=== PATIENT | female | born 1930 | race Caucasian/White ===

== ENCOUNTER 2018-11-30 13:39 | Inpatient (IN) | payer MEDICARE, OTHER ==
[~2018-11-30] VITALS: Ht 165.1 cm; Wt 48.1 kg
[~2018-11-30 13:39] MED LIST: AC325T PO
--- NOTE | 2018-11-30 13:50 | NUR ---
SAO2 83% ON ADMIT PLACED ON
--- NOTE | 2018-11-30 13:52 | ED Hip Pain/Injury ---
General Chief Complaint: Hip/Pelvic Problems Stated Complaint: FALL;L HIP Source: patient Exam Limitations: no limitations History of Present Illness Date Seen by Provider: Nov 30, 2018 Time Seen by Provider: 13:50 Initial Comments To ER per EMS from home with reports of fall and subsequent left hip pain. She did not hit her head. She states that she was able stand momentarily after falling but can no longer do so. There is obvious external rotation and shortening of the left hip. She is also noted to be hypoxic at 83% on arrival. She does not typically wear oxygen at home. EMS reported oxygen saturation of 96 % in route to the hospital. She denies shortness of breath or chest pain. Timing/Duration: constant Severity: moderate Location: pelvis Allergies and Home Medications Allergies Uncoded Allergies: SULFA (Allergy, Mild, 08/03/10) Home Medications Acetaminophen 325 Mg Tablet, 325 MG PO PRN Prescribed by: JOSE SANCHEZ on 08/03/10 3798 Patient Home Medication List Home Medication List Reviewed: Yes Review of Systems Constitutional: see HPI EENTM: see HPI Respiratory: no symptoms reported Cardiovascular: no symptoms reported Genitourinary: no symptoms reported Musculoskeletal: see HPI Skin: no symptoms reported Psychiatric/Neurological: No Symptoms Reported Physical Exam Vital Signs Vital Signs - First Documented 11/30/18 13:50 Temp 98.1 Pulse 86 Resp 20 B/P (MAP) 139/79 (99) Pulse Ox 95 O2 Delivery Nasal Cannula O2 Flow Rate 2.00 Capillary Refill : Height, Weight, BMI Height: '" Weight: lbs. oz. kg; BMI Method: General Appearance: No Apparent Distress, WD/WN, Other (alert and oriented GCS 15. No sign of scalp or head injury. Normal respiratory pattern an effort. Lungs are clear.) HEENT: PERRL/EOMI, TMs Normal Neck: Full Range of Motion, Normal Inspection Cardiovascular: Normal Peripheral Pulses Respiratory: Lungs Clear, Normal Breath Sounds, No Accessory Muscle Use, No Respiratory Distress Gastrointestinal: Non Tender, Soft Extremity: Other (+1 dorsalis pedis pulse on the left. Neck pain at the left hip. There is shortening and external rotation of the left leg.) Neurologic/Psychiatric: Alert, Oriented x3 Skin: Normal Color, Warm/Dry GCS 15. Alert and oriented. Recalls all events. Progress/Results/Core Measures Results/Orders Lab Results Laboratory Tests Test 11/30/18 13:50 11/30/18 14:40 11/30/18 14:45 Range/Units White Blood Count 11.4 H 4.3-11.0 10^3/uL Red Blood Count 3.68 L 4.35-5.85 10^6/uL Hemoglobin 11.9 11.5-16.0 G/DL Hematocrit 36 35-52 % Mean Corpuscular Volume 97 80-99 FL Mean Corpuscular Hemoglobin 32 25-34 PG Mean Corpuscular Hemoglobin Concent 33 32-36 G/DL Red Cell Distribution Width 12.6 10.0-14.5 % Platelet Count 214 130-400 10^3/uL Mean Platelet Volume 10.9 H 7.4-10.4 FL Neutrophils (%) (Auto) 89 H 42-75 % Lymphocytes (%) (Auto) 6 L 12-44 % Monocytes (%) (Auto) 5 0-12 % Eosinophils (%) (Auto) 0 0-10 % Basophils (%) (Auto) 0 0-10 % Neutrophils # (Auto) 10.1 H 1.8-7.8 X 10^3 Lymphocytes # (Auto) 0.7 L 1.0-4.0 X 10^3 Monocytes # (Auto) 0.6 0.0-1.0 X 10^3 Eosinophils # (Auto) 0.0 0.0-0.3 10^3/uL Basophils # (Auto) 0.0 0.0-0.1 10^3/uL Neutrophils % (Manual) 90 % Lymphocytes % (Manual) 6 % Monocytes % (Manual) 3 % Eosinophils % (Manual) 0 % Basophils % (Manual) 0 % Band Neutrophils 1 % Toxic Granulation 1+ Blood Morphology Comment NORMAL Prothrombin Time 13.7 12.2-14.7 SEC INR Comment 1.1 0.8-1.4 Sodium Level 140 135-145 MMOL/L Potassium Level 3.6 3.6-5.0 MMOL/L Chloride Level 105 98-107 MMOL/L Carbon Dioxide Level 23 21-32 MMOL/L Anion Gap 12 5-14 MMOL/L Blood Urea Nitrogen 22 H 7-18 MG/DL Creatinine 0.87 0.60-1.30 MG/DL Estimat Glomerular Filtration Rate > 60 BUN/Creatinine Ratio 25 Glucose Level 128 H 70-105 MG/DL Calcium Level 9.2 8.5-10.1 MG/DL Corrected Calcium 9.3 8.5-10.1 MG/DL Total Bilirubin 0.4 0.1-1.0 MG/DL Aspartate Amino Transf (AST/SGOT) 29 5-34 U/L Alanine Aminotransferase (ALT/SGPT) 21 0-55 U/L Alkaline Phosphatase 61 40-136 U/L Total Protein 6.7 6.4-8.2 GM/DL Albumin 3.9 3.2-4.5 GM/DL Blood Gas Puncture Site RIGHT BRACHIAL Blood Gas Patient Temperature 98.6 Arterial Blood pH 7.37 7.37-7.43 Arterial Blood Partial Pressure CO2 43 35-45 MMHG Arterial Blood Partial Pressure O2 79 79-93 MMHG Arterial Blood HCO3 24 23-27 MMOL/L Arterial Blood Total CO2 25.6 21.0-31.0 MMOL/L Arterial Blood Oxygen Saturation 95 94-100 % Arterial Blood Base Excess -0.3 -2.5-2.5 MMOL/L Chalo Test POSITIVE Blood Gas Ventilator Setting NO Blood Gas Inspired Oxygen 3 L Urine Color YELLOW Urine Clarity SLIGHTLY CLOUDY Urine pH 7 5-9 Urine Specific [employer] 1.015 L 1.016-1.022 Urine Protein 1+ H NEGATIVE Urine Glucose (UA) NEGATIVE NEGATIVE Urine Ketones 2+ H NEGATIVE Urine Nitrite NEGATIVE NEGATIVE Urine Bilirubin NEGATIVE NEGATIVE Urine Urobilinogen NORMAL NORMAL MG/DL Urine Leukocyte Esterase NEGATIVE NEGATIVE Urine RBC (Auto) NEGATIVE NEGATIVE Urine RBC NONE /HPF Urine WBC RARE /HPF Urine Squamous Epithelial Cells 2-5 /HPF Urine Crystals NONE /LPF Urine Bacteria MODERATE H /HPF Urine Casts NONE /LPF Urine Mucus NEGATIVE /LPF Urine Culture Indicated YES My Orders Orders - CARLTON ÁLVAREZ APRN Cbc With Automated Diff (11/30/18 13:47) Comprehensive Metabolic Panel (11/30/18 13:47) Protime With Inr (11/30/18 13:47) Iv Heplock-Insert (Order) (11/30/18 13:47) Ct Angio Chest W (11/30/18 13:47) Chest 1 View, Ap/Pa Only (11/30/18 13:47) Pelvis With Left Hip 2-3 Views (11/30/18 13:47) Fentanyl Injection (Sublimaze Injection (11/30/18 14:00) Fentanyl Injection (Sublimaze Injection (11/30/18 14:00) Ua Culture If Indicated (11/30/18 14:01) Catheter(Urinary) Care .0300, 1500 (11/30/18 14:01) Manual Differential (11/30/18 13:50) Fentanyl Injection (Sublimaze Injection (11/30/18 14:45) Arterial Blood Gas (11/30/18 14:38) Arterial Blood Draw (11/30/18 ) Iohexol Injection (Omnipaque 350 Mg/Ml 1 (11/30/18 15:00) Received Contrast (Hold Metformin- Contr (11/30/18 15:00) Fentanyl Injection (Sublimaze Injection (11/30/18 15:00) Consult Pulmonology (11/30/18 14:58) Urine Culture (11/30/18 14:45) Medications Given in ED Current Medications Medications Dose Ordered Sig/Neftali Route Start Time Stop Time Status Last Admin Dose Admin Fentanyl Citrate 25 mcg ONCE PRN IVP 11/30/18 14:00 11/30/18 14:38 25 MCG Iohexol 125 ml ONCE ONCE IV 11/30/18 15:00 11/30/18 15:01 DC 11/30/18 14:56 125 ML Vital Signs/I&O 11/30/18 13:50 Temp 98.1 Pulse 86 Resp 20 B/P (MAP) 139/79 (99) Pulse Ox 95 O2 Delivery Nasal Cannula O2 Flow Rate 2.00 Diagnostic Imaging Diagonstic Imaging: CT Comments NAME: MAUREEN RODNEY [facility] REC#: [id number] PT STATUS: REG ER : 1930 PHYSICIAN: CARLTON ÁLVAREZ CERTIFIED HISTOLOGIC TECHNICIAN ADMIT DATE: 11/30/18/ER Draft Date of Exam:11/30/18 CT ANGIO CHEST W PROCEDURE: CT angiography of the chest with contrast. TECHNIQUE: Multiple contiguous axial images were obtained through the chest after uneventful bolus administration of intravenous contrast. 2D reconstructed CTA MIP acquisitions were also performed. INDICATION: Fall and shortness of air. Numerous collateral vessels are identified in the lower neck. This may be owing to an occlusion of the left subclavian vein. The thoracic aorta is dilated. Ascending thoracic aorta measures 4.6 cm AP diameter. Aortic arch and descending thoracic aorta are ectatic. No dissection is seen. Pulmonary arterial system is without evidence of thromboembolism. No filling defects are seen within central, lobar or segmental branches. Heart is enlarged. No pericardial or pleural fluid is identified. Parenchymal evaluation does show a small nodule along the major fissure on the right, image 71 measuring 5 mm. There is some scarring or atelectasis in the lingula and left lower lobe. No infiltrates are seen. Upper abdomen is unremarkable. IMPRESSION: 1. No evidence of pulmonary embolism or thoracic aortic dissection. 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 2. 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 3. Subpleural nodule right lower lobe, as described. Followup in 6-12 months could be performed to confirm stability, if clinically indicated. Dictated on workstation # [id number] Dict: 11/30/18 1516 Trans: 11/30/18 1525 [facility] [id number] Interpreted by: KASSI ESPINAL MD Electronically signed by: Departure Communication (Admissions) Time/Spoke to Admitting Phy: 15:[address] Hartley. Would like to proceed with surgical repair today. Patient last ate breakfast, nothing since then. She is not on any anticoagulants. She was hypoxic with CT angiogram is unremarkable. Discussed with Dr. Woody. He will see the patient after clinic and before surgery. I also discussed with Dr. Anguiano, hospitalist. Impression Primary Impression: Closed left hip fracture Qualified Codes: S72.002A - Fracture of unspecified part of neck of left femur , initial encounter for closed fracture Additional Impression: Hypoxia Disposition: ADMITTED INPATIENT Condition: Stable Admissions Decision to Admit Reason: Admit from ER (General) Decision to Admit/Date: Nov 30, 2018 Time/Decision to Admit Time: 14:36 Departure-Patient Inst. Referrals: JAY LARSON DO (PCP/Family) Primary Care Physician CARLTON ÁLVAREZ APRN Nov 30, 2018 13:52
[2018-11-30] MEDS: fentaNYL INJECTION 100 MCG/2 ML AMP IVP PRN ×3 (13:54→14:38)
[2018-11-30] MEDS ORDERED: fentaNYL INJECTION 100 MCG/2 ML AMP IVP PRN ×2 (14:00→14:45)
[2018-11-30 14:05] LABS: BASOPHILS % (AUTO) 0 % (0-10); EOSINOPHILS % (AUTO) 0 % (0-10); HEMATOCRIT 36 % (35-52); HEMOGLOBIN 11.9 G/DL (11.5-16.0); LYMPHOCYTES # (AUTO) 0.7 X 10^3 (1.0-4.0); LYMPHOCYTES % (AUTO) 6 % (12-44); MEAN CORPUSCULAR HEMOGLOBIN 32 PG (25-34); MEAN CORPUSCULAR HGB CONC 33 G/DL (32-36); MEAN CORPUSCULAR VOLUME 97 FL (80-99); MEAN PLATELET VOLUME 10.9 FL (7.4-10.4); MONOCYTES # (AUTO) 0.6 X 10^3 (0.0-1.0); MONOCYTES % (AUTO) 5 % (0-12); NEUTROPHILS # (AUTO) 10.1 X 10^3 (1.8-7.8); NEUTROPHILS % (AUTO) 89 % (42-75); PLATELET COUNT 214 10^3/uL (130-400); RED CELL DISTRIBUTION WIDTH 12.6 % (10.0-14.5); WHITE BLOOD COUNT 11.4 10^3/uL (4.3-11.0)
[2018-11-30 14:17] LABS: INR 1.1 (0.8-1.4); PROTHROMBIN TIME PATIENT 13.7 SEC (12.2-14.7)
[2018-11-30 14:26] LABS: ALANINE AMINOTRANSFERASE 21 U/L (0-55); ALBUMIN 3.9 GM/DL (3.2-4.5); ALKALINE PHOSPHATASE 61 U/L (40-136); BILIRUBIN,TOTAL 0.4 MG/DL (0.1-1.0); BUN/CREATININE RATIO 25; CALCIUM 9.2 MG/DL (8.5-10.1); CARBON DIOXIDE 23 MMOL/L (21-32); CHLORIDE 105 MMOL/L (98-107); CREATININE SERUM 0.87 MG/DL (0.60-1.30); GFR ESTIMATED > 60; GLUCOSE 128 MG/DL (70-105); POTASSIUM 3.6 MMOL/L (3.6-5.0); SODIUM 140 MMOL/L (135-145); TOTAL PROTEIN 6.7 GM/DL (6.4-8.2)
--- NOTE | 2018-11-30 14:38 | Diagnostic Imaging Report ---
INDICATION: Fall and left hip pain. TIME OF EXAM: 02:10 p.m. AP view of pelvis and two views left hip demonstrate an acute fracture of the left femoral neck. It appears to be in the region of the mid femoral neck versus subcapital. 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 Femoral acetabular alignment is maintained. Right hip is intact. Rami are intact. IMPRESSION: Acute left femoral neck fracture. Dictated by: Dictated on workstation # [id number]
--- NOTE | 2018-11-30 14:42 | Diagnostic Imaging Report ---
Indication: Left hip pain Frontal chest obtained at 209 hours pm, and compared to 08/03/10. There is cardiomegaly. Aorta is tortuous and/or ectatic. There is dextroscoliotic change of the thoracic spine. There is no focal infiltrate or pneumothorax or pleural fluid. IMPRESSION: Cardiomegaly and chronic findings. No acute infiltrate or pleural fluid. Dictated by: Dictated on workstation # [id number]
[2018-11-30 14:44] LABS: BAND NEUTROPHILS 1 %; BASOPHILS % (MANUAL) 0 %; EOSINOPHILS % (MANUAL) 0 %; LYMPHOCYTES % (MANUAL) 6 %; MONOCYTES % (MANUAL) 3 %; NEUTROPHILS % (MANUAL) 90 %
[2018-11-30 14:47] LABS: ABG BASE EXCESS -0.3 MMOL/L (-2.5-2.5); ABG OXYGEN SATURATION 95 % (94-100); ABG PCO2 43 MMHG (35-45); ABG PH 7.37 (7.37-7.43); ABG PO2 79 MMHG (79-93); ABG TCO2 25.6 MMOL/L (21.0-31.0)
[2018-11-30 14:48] LABS: RBC MORPH NORMAL; TOXIC GRANULATION/VACUOLAZATIO 1+
[2018-11-30 14:50] LABS: ALLENS TEST POSITIVE; INSPIRED O2 3 L; PATIENT TEMP 98.6; VENTILATOR NO
[2018-11-30] MEDS ORDERED: IOHEXOL 350 MG/ML 150 ML (OMNIPAQUE 350) VIAL IV ONE (15:00)
[2018-11-30] MEDS ORDERED: HOLD METFORMIN - RECEIVED CONTRAST 20 ML VIAL IV SCH (15:00)
[2018-11-30] MEDS ORDERED: fentaNYL INJECTION 100 MCG/2 ML AMP IVP ONE ×2 (15:00→16:15)
[2018-11-30 15:01] LABS: BILIRUBIN,URINE NEGATIVE (NEGATIVE); CLARITY,URINE SLIGHTLY CLOUDY; COLOR,URINE YELLOW; GLUCOSE, URINE (UA) NEGATIVE (NEGATIVE); KETONES,URINE 2+ (NEGATIVE); LEUKOCYTE ESTERASE ,URINE NEGATIVE (NEGATIVE); NITRITE,URINE NEGATIVE (NEGATIVE); PH,URINE 7 (5-9); PROTEIN,URINE 1+ (NEGATIVE); UROBILINOGEN,URINE NORMAL (NORMAL)
[2018-11-30 15:23] LABS: BACTERIA,URINE MODERATE /HPF; WBC,URINE RARE /HPF
--- NOTE | 2018-11-30 15:26 | Diagnostic Imaging Report ---
PROCEDURE: CT angiography of the chest with contrast. TECHNIQUE: Multiple contiguous axial images were obtained through the chest after uneventful bolus administration of intravenous contrast. 2D reconstructed CTA MIP acquisitions were also performed. INDICATION: Fall and shortness of air. Numerous collateral vessels are identified in the lower neck. This may be owing to an occlusion of the left subclavian vein. The thoracic aorta is dilated. Ascending thoracic aorta measures 4.6 cm AP diameter. Aortic arch and descending thoracic aorta are ectatic. No dissection is seen. Pulmonary arterial system is without evidence of thromboembolism. No filling defects are seen within central, lobar or segmental branches. Heart is enlarged. No pericardial or pleural fluid is identified. Parenchymal evaluation does show a small nodule along the major fissure on the right, image 71 measuring 5 mm. There is some scarring or atelectasis in the lingula and left lower lobe. No infiltrates are seen. Upper abdomen is unremarkable. IMPRESSION: 1. No evidence of pulmonary embolism or thoracic aortic dissection. 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 2. 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 3. Subpleural nodule right lower lobe, as described. Followup in 6-12 months could be performed to confirm stability, if clinically indicated. Dictated by: Dictated on workstation # [id number]
--- NOTE | 2018-11-30 15:45 | NUR ---
DR JIMÉNEZ HER FOR EVAL TO RELAEASE FOR SURG
--- NOTE | 2018-11-30 16:03 | Pulmonary Consultation ---
History of Present Illness History of Present Illness Date of Consultation 11/30/18 15:56 Time Seen by Provider: 15:56 Date of Admission History of Present Illness 88yo never smoker presented to ED s/p fall and found to have a hip fracture. She was was also found to have hypoxia requiring 2-3 liters. PT does not use home oxygen. Dr. Hartley asked me to see pt for preop clearance. CT of chest reviewed and is negative for PE. It does appear she has some chronic pulmonary changes on CT of chest. Pt does not complain of SOB or productive cough. No fever, NS, CHills Allergies and Home Medications Allergies Uncoded Allergies: SULFA (Allergy, Mild, 08/03/10) Home Medications Acetaminophen 325 Mg Tablet, 325 MG PO PRN Prescribed by: JOSE SANCHEZ on 08/03/10 [id number] Past Ttogqrt-Tbgyqe-Trorif Hx Patient Social History Alcohol Use: Denies Use Recreational Drug Use: No Smoking Status: Never a Smoker 2nd Hand Smoke Exposure: No Recent Foreign Travel: No Contact w/Someone Who Travel: No Recent Infectious Disease Expo: No Recent Hopitalizations: No Seasonal Allergies Seasonal Allergies: No Past Medical History Surgeries: Yes Eye Surgery Respiratory: No Cardiac: No Neurological: No Genitourinary: No Gastrointestinal: No Musculoskeletal: No Endocrine: No HEENT: Yes (CORNEA TRANSPLANT) Cancer: No Psychosocial: No Integumentary: No Review of Systems Time Seen by Provider: 16:11 Constitutional: Weakness, Malaise; No: Fever, Chills, Sweats, Other Eyes: No: Pain, Vision change, Conjunctivae inflammation, Eyelid inflammation, Other, Redness ENT: Nose congestion; No: Ear pain, Ear discharge, Nose pain, Nose discharge, Mouth pain, Mouth swelling, Throat pain, Throat swelling, Other Respiratory: Cough, Dry; No: Shortness of breath, SOB with excertion, Wheezing , Hemoptysis Cardiovascular: No: Chest Pain, Palpitations, Orthopnea, Paroxysmal Noc. Dyspnea, Edema, Lt Headedness, Other Gastrointestinal: No: Nausea, Vomiting, Abdominal Pain, Diarrhea, Constipation , Melena, Hematochezia, Other Sepsis Event Evaluation Height, Weight, BMI Height: 5'5.00" Weight: 106lbs. oz. 48.626964wj; BMI Method:Stated Exam Exam Vital Signs Date Time Temp Pulse Resp B/P (MAP) Pulse Ox O2 Delivery O2 Flow Rate FiO2 11/30/18 13:50 98.1 86 20 139/79 (99) 95 Nasal Cannula 2.00 Height & Weight Height: 5'5.00" Weight: 106lbs. oz. 48.315118go; BMI Method:Stated General Appearance: No Apparent Distress, WD/WN, Other HEENT: PERRL/EOMI, TMs Normal Neck: Full Range of Motion, Normal Inspection Respiratory: Lungs Clear, Normal Breath Sounds, No Accessory Muscle Use, No Respiratory Distress Cardiovascular: Normal Peripheral Pulses Capillary Refill: Less Than 3 Seconds Gastrointestinal: normal bowel sounds, non tender, soft Extremity: Normal Capillary Refill, Other Neurologic/Psychiatric: Alert, Oriented x3 Skin: Normal Color, Warm/Dry Results Lab Laboratory Tests 11/30/18 13:50 Assessment/Plan Assessment/Plan S/p fall with left hip fracture -Dr. Hartley is planning surgical repair today Hypoxia- probably chronic -ABG reviewed -CT shows no PE however it does show some chronic changes. -I question if pt has been hypoxic for awhile maged since she does not feel SOB. -Pt will probably need home 02 upon discharge. -Will do out pt PFT Lung nodule -Will follow as an out patient PT's pulmonary status is optimized for surgery. I will continue to follow for any possible respiratory complications. SHAYLA VELEZ DO Nov 30, 2018 16:03
[2018-11-30 16:07] VITALS: BP 147/87
--- NOTE | 2018-11-30 16:51 | NUR ---
DR COLLADO HERE
[2018-11-30] MEDS ORDERED: ONDANSETRON 4 MG/2 ML (SDV) Z0FRAN ONE ×2 (17:33→18:09)
[2018-11-30] MEDS ORDERED: LIDOCAINE PF 2% 5 ML (XYLOCAINE) VIAL ONE (18:09)
[2018-11-30] MEDS ORDERED: proPOfol 200 MG/20 ML (DIPRIVAN) VIAL IV ONE (18:09)
[2018-11-30] MEDS ORDERED: fentaNYL INJECTION 100 MCG/2 ML AMP ONE ×2 (18:09→18:32)
[2018-11-30] MEDS ORDERED: DEXAMETHASONE 10 MG/ML (DECADRON) 1 ML VIAL ONE (18:09)
--- NOTE | 2018-11-30 18:10 | NUR ---
TO OR PER
[2018-11-30] MEDS ORDERED: diphenhydrAMINE 50 MG/ML INJ (BENADRYL) IV PRN (18:15)
[2018-11-30] MEDS ORDERED: ONDANSETRON 4 MG/2 ML (SDV) Z0FRAN IVP PRN ×2 (18:15→19:00)
[2018-11-30] MEDS ORDERED: PROMETHAZINE INJ 25 MG/ML (PHENERGAN) AMP IVP PRN (18:15)
[2018-11-30] MEDS ORDERED: BISACODYL 10 MG SUPP (DULCOLAX) PR PRN (18:15)
[2018-11-30] MEDS: LACTATED RINGERS 1,000 ML IV PRN ×2 (18:16→19:10)
[2018-11-30] MEDS ORDERED: GENTAMICIN 40 MG/ML 2 ML INJ SDV ONE (18:24)
[2018-11-30] MEDS ORDERED: ceFAZolin INJECTION 1,000 MG in WATER (STERILE) FOR INJECTION 10 ML IV ONE (18:30)
--- NOTE | 2018-11-30 18:34 | Progress Note-Pre Operative ---
Pre-Operative Progress Note H&P Reviewed The H&P was reviewed, patient examined and no changes noted. Date Seen by Provider: Nov 30, 2018 Time Seen by Provider: 17:00 Date H&P Reviewed: Nov 30, 2018 Time H&P Reviewed: 17:00 Pre-Operative Diagnosis: Displaced left femoral neck fracture MICHELLE COLLADO DO Nov 30, 2018 18:34
--- NOTE | 2018-11-30 18:38 | History & Physical-Surgical ---
HPO-Surgical History of Present Illness Chief Complaint: PT TO RM 3 BY [facility] WITH CC OF A FALL ABOUT 0400 THIS A.M. HITTING HER LT HIP ON THE DOORWAY. PT DENIES HITTING HER HEAD AND HAS NO OTHER COMPLAINT BESIDES LT HIP PAIN. PT FELT LIKE SHE PASSED OUT, SON STATES SHE STATED FEELING WEAK AND THOUGHT SHE MIGHT HAVE A STOMACH VIRUS, DIARRHEA EARLY THIS A.M. Diagnosis/Surgical Indication: Displaced left femoral neck fracture Procedure: left hip femoral librado-arthroplasty Date of Surgery: Nov 30, 2018 Weight (Pounds): 106 Height (Feet): 5 Height (Inches): 5.00 Allergies and Home Medications Allergies Uncoded Allergies: SULFA (Allergy, Mild, 08/03/10) Home Medications Acetaminophen 325 Mg Tablet, 325 MG PO PRN Prescribed by: JOSE SANCHEZ on 08/03/10 1454 Patient Home Medication List Home Medication List Reviewed: Yes Past Gixazfk-Bpucxw-Mhthpa Hx Patient Social History Alcohol Use: Denies Use Recreational Drug Use: No Smoking Status: Never a Smoker 2nd Hand Smoke Exposure: No Recent Foreign Travel: No Contact w/other who traveled: No Recent Hopitalizations: No Recent Infectious Disease Expo: No Seasonal Allergies Seasonal Allergies: No Surgeries Yes Eye Surgery Respiratory No Cardiovascular No Neurological No Genitourinary No Gastrointestinal No Musculoskeletal No Endocrine History of Endocrine Disorders: No HEENT History of HEENT Disorders: Yes (CORNEA TRANSPLANT) Cancer No Psychosocial History of Psychiatric Problem: No Integumentary History of Skin or Integumenta: No Exam Vital Signs Vital Signs 11/30/18 11/30/18 13:50 18:12 Temp 98.1 Pulse 83 Resp 18 B/P (MAP) 147/87 (107) Pulse Ox 100 O2 Delivery Nasal Cannula O2 Flow Rate 2.00 Capillary Refill : Less Than 3 Seconds Labs Laboratory Tests Test 11/30/18 13:50 11/30/18 14:40 11/30/18 14:45 Range/Units White Blood Count 11.4 H 4.3-11.0 10^3/uL Red Blood Count 3.68 L 4.35-5.85 10^6/uL Hemoglobin 11.9 11.5-16.0 G/DL Hematocrit 36 35-52 % Mean Corpuscular Volume 97 80-99 FL Mean Corpuscular Hemoglobin 32 25-34 PG Mean Corpuscular Hemoglobin Concent 33 32-36 G/DL Red Cell Distribution Width 12.6 10.0-14.5 % Platelet Count 214 130-400 10^3/uL Mean Platelet Volume 10.9 H 7.4-10.4 FL Neutrophils (%) (Auto) 89 H 42-75 % Lymphocytes (%) (Auto) 6 L 12-44 % Monocytes (%) (Auto) 5 0-12 % Eosinophils (%) (Auto) 0 0-10 % Basophils (%) (Auto) 0 0-10 % Neutrophils # (Auto) 10.1 H 1.8-7.8 X 10^3 Lymphocytes # (Auto) 0.7 L 1.0-4.0 X 10^3 Monocytes # (Auto) 0.6 0.0-1.0 X 10^3 Eosinophils # (Auto) 0.0 0.0-0.3 10^3/uL Basophils # (Auto) 0.0 0.0-0.1 10^3/uL Neutrophils % (Manual) 90 % Lymphocytes % (Manual) 6 % Monocytes % (Manual) 3 % Eosinophils % (Manual) 0 % Basophils % (Manual) 0 % Band Neutrophils 1 % Toxic Granulation 1+ Blood Morphology Comment NORMAL Prothrombin Time 13.7 12.2-14.7 SEC INR Comment 1.1 0.8-1.4 Sodium Level 140 135-145 MMOL/L Potassium Level 3.6 3.6-5.0 MMOL/L Chloride Level 105 98-107 MMOL/L Carbon Dioxide Level 23 21-32 MMOL/L Anion Gap 12 5-14 MMOL/L Blood Urea Nitrogen 22 H 7-18 MG/DL Creatinine 0.87 0.60-1.30 MG/DL Estimat Glomerular Filtration Rate > 60 BUN/Creatinine Ratio 25 Glucose Level 128 H 70-105 MG/DL Calcium Level 9.2 8.5-10.1 MG/DL Corrected Calcium 9.3 8.5-10.1 MG/DL Total Bilirubin 0.4 0.1-1.0 MG/DL Aspartate Amino Transf (AST/SGOT) 29 5-34 U/L Alanine Aminotransferase (ALT/SGPT) 21 0-55 U/L Alkaline Phosphatase 61 40-136 U/L Total Protein 6.7 6.4-8.2 GM/DL Albumin 3.9 3.2-4.5 GM/DL Blood Gas Puncture Site RIGHT BRACHIAL Blood Gas Patient Temperature 98.6 Arterial Blood pH 7.37 7.37-7.43 Arterial Blood Partial Pressure CO2 43 35-45 MMHG Arterial Blood Partial Pressure O2 79 79-93 MMHG Arterial Blood HCO3 24 23-27 MMOL/L Arterial Blood Total CO2 25.6 21.0-31.0 MMOL/L Arterial Blood Oxygen Saturation 95 94-100 % Arterial Blood Base Excess -0.3 -2.5-2.5 MMOL/L Chalo Test POSITIVE Blood Gas Ventilator Setting NO Blood Gas Inspired Oxygen 3 L Urine Color YELLOW Urine Clarity SLIGHTLY CLOUDY Urine pH 7 5-9 Urine Specific [place] 1.015 L 1.016-1.022 Urine Protein 1+ H NEGATIVE Urine Glucose (UA) NEGATIVE NEGATIVE Urine Ketones 2+ H NEGATIVE Urine Nitrite NEGATIVE NEGATIVE Urine Bilirubin NEGATIVE NEGATIVE Urine Urobilinogen NORMAL NORMAL MG/DL Urine Leukocyte Esterase NEGATIVE NEGATIVE Urine RBC (Auto) NEGATIVE NEGATIVE Urine RBC NONE /HPF Urine WBC RARE /HPF Urine Squamous Epithelial Cells 2-5 /HPF Urine Crystals NONE /LPF Urine Bacteria MODERATE H /HPF Urine Casts NONE /LPF Urine Mucus NEGATIVE /LPF Urine Culture Indicated YES General Appearance: Alert, Oriented X3 HEENT: PERRLA Respiratory: Clear to Auscultation Cardiovascular: Regular Rate Abdominal: Normal Bowel Sounds, Soft Extremities: No Clubbing, No Cyanosis, Other (tenderness left hip, shortening and external rotation of left leg) Skin: No Rashes, No Breakdown Neuro: Normal Speech, Normal Tone Psych/Mental Status: Mental Status NL Assessment/Plan Assessment and Plan A: left hip femoral neck fracture P: left hip bipolar femoral librado-arthroplasty, consult internal medicine for medical management, Dr. Woody to manage pulmonary post op. executive secretary social welfare consulted for DC planning. Problems: (1) Closed left hip fracture Status: Acute Qualifiers: Qualified Codes: S72.002A - Fracture of unspecified part of neck of left femur, initial encounter for closed fracture (2) Hypoxia Status: Acute Admission Diagnosis Admission Status: Inpatient Order (span 2 midnights) MICHELLE COLLADO DO Nov 30, 2018 18:38
[2018-11-30] MEDS ORDERED: MIDAZOLAM 2 MG/2 ML (VERSED) VIAL ONE (18:44)
[2018-11-30] MEDS ORDERED: MEPERIDINE (DEMEROL) INJ 50 MG/ML IVP ONE (19:00)
[2018-11-30] MEDS ORDERED: ceFAZolin INJECTION 1,000 MG ONE (19:02)
[2018-11-30] MEDS ORDERED: NEO/POLY/BAC (NEOSPORIN) OINT 15 GM TUBE ONE (19:33)
--- NOTE | 2018-11-30 21:32 | Diagnostic Imaging Report ---
INDICATION: Immediate postop imaging from left hip arthroplasty. COMPARISON: 11/30/2018 at 2:10 PM. FINDINGS: Left hip hemiarthroplasty has been placed. No acute periprosthetic fracture. The expected postoperative soft tissue gas and richard. IMPRESSION: No immediate postoperative complication status post left hip hemiarthroplasty. Dictated by: Dictated on workstation # [id number]
[2018-11-30] MEDS: ceFAZolin 2 GM IV Premixed 50 ML IV SCH (21:36)
[2018-11-30] MEDS ORDERED: D5 1/2 NS 1000 ML IV SOLUTION 1,000 ML IV ONE (21:39)
[2018-11-30] MEDS: D5 1/2 NS 1000 ML IV SOLUTION 1,000 ML IV SCH (21:52)
[2018-11-30 21:54] VITALS: BP 162/77
[2018-11-30 23:17] VITALS: BP 118/62
[2018-12-01] MEDS: HYDROcodone/APAP 10 MG/325 MG (LORTAB) TAB PO PRN ×4 (00:03→20:04)
[2018-12-01] MEDS: ceFAZolin 2 GM IV Premixed 50 ML IV SCH (02:12)
--- NOTE | 2018-12-01 02:24 | NUR ---
Justin JOE contacted by this RN regarding pt crying out in breakthrough pain as no IV pain medication was ordered yet. TORB received for Fentanyl 50 mcg IVP Q2H PRN for severe pain. Order read back and confirmed.
[2018-12-01] MEDS ORDERED: fentaNYL INJECTION 100 MCG/2 ML AMP ONE (02:30)
[2018-12-01] MEDS: fentaNYL INJECTION 100 MCG/2 ML AMP IVP PRN (02:37)
[2018-12-01 03:34] VITALS: BP 112/57
[2018-12-01 04:27] LABS: HEMOGLOBIN 10.1 G/DL (11.5-16.0); RED CELL DISTRIBUTION WIDTH 12.6 % (10.0-14.5); WHITE BLOOD COUNT 9.3 10^3/uL (4.3-11.0)
[2018-12-01 04:41] LABS: BUN/CREATININE RATIO 22; CALCIUM 8.2 MG/DL (8.5-10.1); CARBON DIOXIDE 24 MMOL/L (21-32); CHLORIDE 104 MMOL/L (98-107); CREATININE SERUM 0.78 MG/DL (0.60-1.30); GFR ESTIMATED > 60; GLUCOSE 132 MG/DL (70-105); SODIUM 138 MMOL/L (135-145)
--- NOTE | 2018-12-01 06:34 | Anesthesia-General Post-Op ---
General Patient Condition Mental Status/LOC: Same as Preop Cardiovascular: Satisfactory Nausea/Vomiting: Absent Respiratory: Satisfactory Pain: Controlled Complications: Absent Post Op Complications Complications None Follow Up Care/Instructions Patient Instructions None needed. Anesthesia/Patient Condition Patient Condition Patient is doing well, no complaints, stable vital signs, no apparent adverse anesthesia problems. No complications reported per nursing. MARY ELLEN SIMPSON CRNA Dec 01, 2018 06:34
--- NOTE | 2018-12-01 06:41 | OPERATIVE REPORT ---
DATE OF SERVICE: 11/30/2018 PREOPERATIVE DIAGNOSIS: Displaced femoral neck fracture, left hip. POSTOPERATIVE DIAGNOSIS: Displaced femoral neck fracture, left hip. PROCEDURE: Bipolar femoral hemiarthroplasty, left hip. SURGEON: Michelle Collado DO. LITHOGRAPHIC ARTIST: LINDA Odonnell. SURGICAL SOCK EXAMINER DUTIES: Justin Watts, surgical brace maker was utilized throughout the entire procedure for patient positioning, soft tissue retraction, assistance and placement of prosthetic components, wound closure, dressing application and the patient transfer. ANESTHESIA: Subarachnoid block. ESTIMATED BLOOD LOSS: 100 mL. COMPLICATIONS: None. INDICATIONS AND FINDINGS: The patient is an 88-year-old female who was at home. She became dizzy, she slipped and fell. Noted immediate left hip pain and inability to ambulate. The patient was evaluated at [facility] where x-rays revealed 100% displaced femoral neck fracture with significant proximal migration of her proximal femur. The patient was taken to surgery on today's date, the date of her injury where a bipolar femoral hemiarthroplasty was performed utilizing the Biomet system with an 11 mm press fit Taperloc complete primary femoral porous coated stem with reduced distal taper. A -6 mm modular head component was utilized with a 47 mm outside diameter acetabular cup. PROCEDURE IN DETAIL: The patient was taken to the operating room where subarachnoid block was administered. The patient was then placed in a right lateral decubitus position, secured to the operating table with the pegboard system. A ChloraPrep and sterile drape of the left hip and the left lower extremity was performed. A lateral longitudinal incision was made centered over the greater trochanter. Incision was deepened through the iliotibial band. A Hardinge approach was performed with electrocautery, dividing the vastus lateralis fascia as well as the gluteus medius and minimus tendon, which reflected off the anterior aspect of the femoral neck. The fracture hematoma was identified. The hip was externally rotated and flexed. An osteotomy was completed through the femoral neck. The femoral head was harvested with a corkscrew awl. I measured 47 mm in diameter. A box chisel was used to open the proximal femur. A canal finder was inserted. The proximal femur was then broached up to an 11 mm stem. The calcar was reamed. The hip was reduced, taken through a range of motion with a -6 mm provisional head and found to be stable with a balance of the soft tissues. The hip was dislocated. The broach was removed. The head was removed. The wounds were irrigated extensively with normal saline solution. Then, the 11 mm Taperloc stem was impacted into position. The bipolar components were assembled, these were cold welded on the stem. The hip was reduced, taken through a range of motion and found to be stable. The vastus lateralis as well as gluteus medius and minimus tendon were closed with multiple interrupted [id number] sutures of #2 Ethibond. The iliotibial band was closed with a running suture of #1 Polysorb. The subcutaneous tissues were closed in layers with 0 and 2-0 Vicryl suture. The skin was closed with stainless steel richard and Adaptic Neosporin bulky dressing was placed about the left hip. The patient was awakened and was transported to postop recovery (ICU in stable condition). Job ID: [id number] DocumentID: [id number] Dictated Date: 11/30/2018 20:05:53 Card Fixer Date: 12/01/2018 06:40:35 Dictated By: MICHELLE COLLADO DO
--- NOTE | 2018-12-01 07:36 | Pulmonary Progress Note ---
Subjective Time Seen by a Provider: 09:51 Subjective/Events-last exam S/p surgery pt appears to be doing well. Sepsis Event Evaluation Height, Weight, BMI Height: 5'5.00" Weight: 106lbs. oz. 48.175274mj; BMI Method:Stated Exam Exam Vital Signs Date Time Temp Pulse Resp B/P (MAP) Pulse Ox O2 Delivery O2 Flow Rate FiO2 12/01/18 03:34 99.0 98 14 112/57 (75) 94 Nasal Cannula 2.00 11/30/18 23:17 98.9 90 18 118/62 (80) 98 Room Air 11/30/18 21:54 97.4 87 18 162/77 (105) 95 Room Air 11/30/18 20:50 95 Nasal Cannula 2.00 11/30/18 18:12 83 18 147/87 (107) 100 Nasal Cannula 2.00 11/30/18 16:07 85 18 147/87 (107) 98 Room Air 11/30/18 13:50 98.1 86 20 139/79 (99) 95 Nasal Cannula 2.00 I & O 12/01/18 07:00 Intake Total 1010 ml Output Total 700 ml Balance 310 ml Height & Weight Height: 5'5.00" Weight: 106lbs. oz. 48.479606ym; BMI Method:Stated General Appearance: No Apparent Distress, WD/WN, Other HEENT: PERRL/EOMI, TMs Normal Neck: Full Range of Motion, Normal Inspection Respiratory: Lungs Clear, Normal Breath Sounds, No Accessory Muscle Use, No Respiratory Distress Cardiovascular: Normal Peripheral Pulses Capillary Refill: Less Than 3 Seconds Gastrointestinal: normal bowel sounds, non tender, soft Extremity: Normal Capillary Refill, Other Neurologic/Psychiatric: Alert, Oriented x3 Skin: Normal Color, Warm/Dry Results Lab Laboratory Tests 11/30/18 13:50 12/01/18 04:15 Assessment/Plan Assessment/Plan S/p fall with left hip fracture -Dr. Hartley is planning surgical repair today Hypoxia- probably chronic -Repeat CXR today -ABG reviewed- c02 [id number] -CT shows no PE however it does show some chronic changes. -I question if pt has been hypoxic for awhile maged since she does not feel SOB. -Pt will probably need home 02 upon discharge. -Will do out pt PFT Hypokalemia -Replace -Check Mg, and phos Lung nodule -Will follow as an out patient SHAYLA VELEZ DO Dec 01, 2018 07:36
[2018-12-01 08:00] VITALS: BP 106/59
[2018-12-01] MEDS: POTASSIUM CL 10MEQ/50ML IVPB 50 ML IV SCH ×6 (08:31→15:00)
[2018-12-01] MEDS: ASPIRIN E.C. 325 MG (ECOTRIN) TABLET PO SCH (08:32)
[2018-12-01] MEDS: ENOXAPARIN 30 MG/0.3 ML (LOVENOX) SYR SC SCH (08:32)
[2018-12-01 09:13] LABS: MAGNESIUM 1.8 MG/DL (1.8-2.4); PHOSPHORUS 2.9 MG/DL (2.3-4.7)
--- NOTE | 2018-12-01 09:21 | Diagnostic Imaging Report ---
INDICATION: Hypoxia COMPARISON: 09/02/2010 FINDINGS: Single view chest demonstrates mild cardiac enlargement without overt pulmonary edema or infiltrate. There is no pneumothorax or effusion. Osseous structures are age-appropriate. IMPRESSION: Mild cardiac enlargement without overt pulmonary edema or infiltrate. Dictated by: Dictated on workstation # [id number]
--- NOTE | 2018-12-01 10:26 | Physical Therapy Evaluation ---
PT Evaluation-General Medical Diagnosis Admission Date Dec 01, 2018 at 09:24 Medical Diagnosis: left hip fx Onset Date: Nov 30, 2018 Therapy Diagnosis Therapy Diagnosis: weakness; abn giat Height/Weight Height (Feet): 5 Height (Inches): 5.00 Weight (Pounds): 106 Precautions Precautions/Isolations: Fall Prevention, Standard Precautions Weight Bear Status Right Lower Extremity: Right Full Weight Bearing Left Lower Extremity: Left Full Weight Bearing Hip precautions Referral Physician: Odilia Reason for Referral: Evaluation/Treatment Medical History Current History Pt sustained a fall yesterday morning and sustained a left hip fx; repaired with hemiarthroplasty. Reviewed History: Yes Social History Home: Single Level Current Living Status: Alone Entry Into Home: Stairs With Railing PT Steps Into Home: 3 Prior/Core FIM Prior Level of Function Therapy Code Descriptions/Definitions Functional Brewster Measure: 0=Not Assessed/NA 4=Minimal Assistance 1=Total Assistance 5=Supervision or Setup 2=Maximal Assistance 6=Modified [place] 3=Moderate Assistance 7=Complete [place] Therapy Quality Codes: 6 Independent with activity with or without an assistive device 5 Patient requires set up or clean up by helper. Patient completes activity by themselves 4 Supervision or touching assist (CGA). Keller provide cues , steadying assist 3 The helper provides less than half the effort to complete the activity 2 The helper provides more than half the effort to complete the activity 1 Dependent. The helper does all the effort to complete an activity 7 Patient refused to complete or attempt activity 9 The patient did not perform the activity before the current illness or injury 88 Not attempted due to Medical conditions or safety concerns Functional Abilities and Goals: Independent: Patient completed the activities by him/herself, with or without an assistive device, with no assistance from a helper. Needed Some Help: Patient needed partial assistance from another person to complete activities. Dependent: A helper completed the activities for the patient. Unknown: Not Applicable: Bed Mobility: 7 Transfers (B,C,W/C) (FIM): 7 Gait: 6 (occas use of cane) Stairs: 6 Indoor Mobility (Ambulation): Independent Stairs: Independent PT Evaluation-Current Subjective Pt agreeable to PT. Once up in the chair became nauseated and faint. Requested ot return to bed. Pain Numeric Pain Scale: 5-Moderate Pain Location: Left Location Body Site: Hip Pain Description: Ache Pt/Family Goals Pt unsure of DC plan at this time; notes she will need additional care somewhere. Objective Patient Orientation: Person, Place, Time, Situation Problem Solving: Good Attachments: Oxygen, Ramsay Catheter, IV ROM/Strength ROM Lower Extremities WFL: hip precautions left Strength Lower Extremities right LE grossly 5/5; left LE grossly 3/5 Integumentary/Posture Integumentary refer to nursing notes. Bowel Incontinence: No Bladder Incontinence: Ramsay Cath Posture normal and symmetrical Neuromuscular (Tone, Coordination, Reflexes) intact and functional Sensory Vision: Wears Glasses Hearing: Functional Hand Dominance: Right Sensation Right Lower Extremit: Intact Sensation Left Lower Extremity: Intact Transfers Therapy Code Descriptions/Definitions Functional [place] Measure: 0=Not Assessed/NA 4=Minimal Assistance 1=Total Assistance 5=Supervision or Setup 2=Maximal Assistance 6=Modified [place] 3=Moderate Assistance 7=Complete [place]ster Transfers (B, C, W/C) (FIM): 2 Scootin Rollin Supine to/from Sit: 2 Sit to/from Stand: 3 Pt requires assist with her left LE due to pain and recent surgery; skilled cues to sequence. Gait Mode of Locomotion: Walk Anticipated Mode of Locomotion: Walk Gait (FIM): 2 Distance (FIM): 1=up to 49 ft Distance: 5 steps Gait Level of Assist: 3 (lila t at gait belt and with the walker) Gait Assistive Device: FWW Comments/Gait Description Step to gait with painful WB on the left. Balance Sitting Static: Good Sitting Dynamic: Good Standing Static: Fair Standing Dynamic: Fair Treatment Pt up to chair. Became nauseated. Pt returned to bed with FWW with SPT with max assist to lie down. In bed with needs met. Assessment/Needs Post left hip fracture that his been repaired with a hemiarthroplasty. She is WBAT and has hip precautions. She will benefit from skilled PT to work on functional strength and mobility to allow her to maximize her transfers and gait to return home when able. Rehab Potential: Good PT Senior Living Goals [employer] President [employer] Goals PT Senior Living Goals Time Frame: Dec 22, 2018 Transfers (B,C,W/C) (FIM): 6 Gait (FIM): 6 PT Plan Problem List Problem List: Activity Tolerance, Functional Strength, Safety, Balance, Gait, Transfer, Bed Mobility Treatment/Plan Treatment Plan: Continue Plan of Care Treatment Plan: Bed Mobility, Education, Functional Activity Jennifer, Functional Strength, Gait, Safety, Therapeutic Exercise, Transfers Treatment Duration: Dec 15, 2018 Frequency: 11 times per week Estimated Hrs Per Day: 1 hour per day Patient and/or Family Agrees t: Yes Safety Risks/Education Patient Education: Transfer Techniques, Safety Issues Teaching Recipient: Patient Teaching Methods: Demonstration, Discussion Response to Teaching: Reinforcement Needed Discharge Recommendations Therapy D/C Recommendations: Acute Rehab (vs SNF) Time/GCodes Time In: 905 Time Out: 947 Total Billed Treatment Time: 42 Total Billed Treatment visit EVM 20 FA 22 JAMIE FERNANDES PT Dec 01, 2018 10:26
--- OUTSIDE RECORDS SUMMARY | 2018-12-01 10:27 | XMS REPORT | Continuity of Care Document ---
Author Author [facility] Organization [facility] Address Unknown Phone Unavailable Allergies Active Description Code Type Severity Reaction Onset Reported/Identified Relationship to Patient Clinical Status Yes SULFA SULFA Mild N /A 08/03/2010 Medications There is no data. Problems Date Dx Coded Attending Type Code Diagnosis Diagnosed By 08/03/2010 Ot 729.5 08/03/2010 Ot 780.4 08/03/2010 Ot 782.0 08/03/2010 Ot 784.0 10/31/2014 Ot 724.02 10/31/2014 Ot 724.3 10/31/2014 Ot V76.12 10/31/2014 Ot V76.12 10/31/2014 Ot 733.00 10/31/2014 Ot V76.12 10/31/2014 Ot V76.12 11/08/2014 Ot 724.02 11/08/2014 Ot 724.3 11/08/2014 Ot V76.12 11/08/2014 Ot V76.12 11/08/2014 Ot 733.00 11/08/2014 Ot V76.12 11/08/2014 Ot V76.12 11/08/2014 Ot 733.00 11/08/2014 Ot V76.12 11/30/2018 Ot 733.00 OSTEOPOROSIS NOS 11/30/2018 Ot V76.12 OT SCREEN MAMMO-MALIGN NEOPLASM OF [place] 12/01/2018 Ot 733.00 OSTEOPOROSIS NOS 12/01/2018 Ot V76.12 OT SCREEN MAMMO-MALIGN NEOPLASM OF [place] Procedures There is no data. Results Test Result Range Complete blood count (CBC) with automated white blood cell (WBC) differential - 11/30/18 13:50 Blood leukocytes automated count (number/volume) 11.4 10*3/uL 4.3-11.0 Blood erythrocytes automated count (number/volume) 3.68 10*6/uL 4.35-5.85 Venous blood hemoglobin measurement (mass/volume) 11.9 g/dL 11.5-16.0 Blood hematocrit (volume fraction) 36 % 35-52 Automated erythrocyte mean corpuscular volume 97 [foz_us] 80-99 Automated erythrocyte mean corpuscular hemoglobin (mass per erythrocyte) 32 pg 25-34 Automated erythrocyte mean corpuscular hemoglobin concentration measurement ( mass/volume) 33 g/dL 32-36 Automated erythrocyte distribution width ratio 12.6 % 10.0-14.5 Automated blood platelet count (count/volume) 214 10*3/uL 130-400 Automated blood platelet mean volume measurement 10.9 [foz_us] 7.4-10.4 Automated blood neutrophils/100 leukocytes 89 % 42-75 Automated blood lymphocytes/100 leukocytes 6 % 12-44 Blood monocytes/100 leukocytes 5 % 0-12 Automated blood eosinophils/100 leukocytes 0 % 0-10 Automated blood basophils/100 leukocytes 0 % 0-10 Blood neutrophils automated count (number/volume) 10.1 10*3 1.8-7.8 Blood lymphocytes automated count (number/volume) 0.7 10*3 1.0-4.0 Blood monocytes automated count (number/volume) 0.6 10*3 0.0-1.0 Automated eosinophil count 0.0 10*3/uL 0.0-0.3 Automated blood basophil count (count/volume) 0.0 10*3/uL 0.0-0.1 PT panel in platelet poor plasma by coagulation assay - 11/30/18 13:50 Prothrombin time (PT) in platelet poor plasma by coagulation assay 13.7 s 12.2-14.7 INR in platelet poor plasma or blood by coagulation assay 1.1 0.8-1.4 Comprehensive metabolic panel - 11/30/18 13:50 Serum or plasma sodium measurement (moles/volume) 140 mmol/L 135-145 Serum or plasma potassium measurement (moles/volume) 3.6 mmol/L 3.6-5.0 Serum or plasma chloride measurement (moles/volume) 105 mmol/L 98-107 Carbon dioxide 23 mmol/L 21-32 Serum or plasma anion gap determination (moles/volume) 12 mmol/L 5-14 Serum or plasma urea nitrogen measurement (mass/volume) 22 mg/dL 7-18 Serum or plasma creatinine measurement (mass/volume) 0.87 mg/dL 0.60-1.30 Serum or plasma urea nitrogen/creatinine mass ratio 25 NRG Serum or plasma creatinine measurement with calculation of estimated glomerular filtration rate > NRG Serum or plasma glucose measurement (mass/volume) 128 mg/dL 70-105 Serum or plasma calcium measurement (mass/volume) 9.2 mg/dL 8.5-10.1 Serum or plasma total bilirubin measurement (mass/volume) 0.4 mg/dL 0.1-1.0 Serum or plasma alkaline phosphatase measurement (enzymatic activity/volume) 61 U/L 40-136 Serum or plasma aspartate aminotransferase measurement (enzymatic activity/ volume) 29 U/L 5-34 Serum or plasma alanine aminotransferase measurement (enzymatic activity/volume ) 21 U/L 0-55 Serum or plasma protein measurement (mass/volume) 6.7 g/dL 6.4-8.2 Serum or plasma albumin measurement (mass/volume) 3.9 g/dL 3.2-4.5 CALCIUM CORRECTED 9.3 mg/dL 8.5-10.1 [id number] - 11/30/18 13:50 [id number] SPECIMEN AVAILABLE NRG Blood manual differential performed detection - 11/30/18 13:50 Blood monocytes/100 leukocytes 3 % NRG Manual blood segmented neutrophils/100 leukocytes 90 % NRG Blood band neutrophils/100 leukocytes 1 % NRG Manual blood lymphocytes/100 leukocytes 6 % NRG Manual eosinophils/100 leukocytes in nose 0 % NRG Manual blood basophils/100 leukocytes 0 % NRG Blood erythrocyte morphology finding identification NORMAL NRG Blood toxic granules detection by light microscopy 1+ NRG Arterial blood gas measurement - 11/30/18 14:40 Blood pCO2 43 mm[Hg] 35-45 Blood pO2 79 mm[Hg] 79-93 Arterial blood bicarbonate measurement (moles/volume) 24 mmol/L 23-27 Arterial blood base excess by calculation -0.3 mmol/L - 2.5-2.5 Arterial blood oxygen saturation measurement 95 % 94-100 * Inhaled oxygen flow rate 3 L NRG Arterial blood pH measurement with patient temperature correction 7.37 7.37-7.43 Arterial blood carbon dioxide, total measurement (moles/volume) 25.6 mmol/L 21.0-31.0 Body site RIGHT BRACHIAL NRG Assessment of wrist artery patency prior to arterial puncture POSITIVE NRG Setting of ventilation mode NO NRG Measurement of body temperature 98.6 NRG Complete urinalysis with reflex to culture - 11/30/18 14:45 Urine color determination YELLOW NRG Urine clarity determination SLIGHTLY CLOUDY NRG Urine pH measurement by test strip 7 5-9 Specific gravity of urine by test strip 1.015 1.016- 1.022 Urine protein assay by test strip, semi-quantitative 1+ NEGATIVE Urine glucose detection by automated test strip NEGATIVE NEGATIVE Erythrocytes detection in urine sediment by light microscopy NEGATIVE NEGATIVE Urine ketones detection by automated test strip 2+ NEGATIVE Urine nitrite detection by test strip NEGATIVE NEGATIVE Urine total bilirubin detection by test strip NEGATIVE NEGATIVE Urine urobilinogen measurement by automated test strip (mass/volume) NORMAL NORMAL Urine leukocyte esterase detection by dipstick NEGATIVE NEGATIVE Automated urine sediment erythrocyte count by microscopy (number/high power field) NONE NRG Automated urine sediment leukocyte count by microscopy (number/high power field ) RARE NRG Bacteria detection in urine sediment by light microscopy MODERATE NRG Squamous epithelial cells detection in urine sediment by light microscopy 2-5 NRG Crystals detection in urine sediment by light microscopy NONE NRG Casts detection in urine sediment by light microscopy NONE NRG Mucus detection in urine sediment by light microscopy NEGATIVE NRG Complete urinalysis with reflex to culture YES NRG Automated blood complete blood count (hemogram) panel - 12/01/18 04:15 Blood leukocytes automated count (number/volume) 9.3 10*3/uL 4.3-11.0 Blood erythrocytes automated count (number/volume) 3.12 10*6/uL 4.35-5.85 Venous blood hemoglobin measurement (mass/volume) 10.1 g/dL 11.5-16.0 Blood hematocrit (volume fraction) 30 % 35-52 Automated erythrocyte mean corpuscular volume 97 [foz_us] 80-99 Automated erythrocyte mean corpuscular hemoglobin (mass per erythrocyte) 32 pg 25-34 Automated erythrocyte mean corpuscular hemoglobin concentration measurement ( mass/volume) 33 g/dL 32-36 Automated erythrocyte distribution width ratio 12.6 % 10.0-14.5 Automated blood platelet count (count/volume) 179 10*3/uL 130-400 Automated blood platelet mean volume measurement 10.0 [foz_us] 7.4-10.4 Whole blood basic metabolic panel - 12/01/18 04:15 Serum or plasma sodium measurement (moles/volume) 138 mmol/L 135-145 Serum or plasma potassium measurement (moles/volume) 3.0 mmol/L 3.6-5.0 Serum or plasma chloride measurement (moles/volume) 104 mmol/L 98-107 Carbon dioxide 24 mmol/L 21-32 Serum or plasma anion gap determination (moles/volume) 10 mmol/L 5-14 Serum or plasma urea nitrogen measurement (mass/volume) 17 mg/dL 7-18 Serum or plasma creatinine measurement (mass/volume) 0.78 mg/dL 0.60-1.30 Serum or plasma urea nitrogen/creatinine mass ratio 22 NRG Serum or plasma creatinine measurement with calculation of estimated glomerular filtration rate > NRG Serum or plasma glucose measurement (mass/volume) 132 mg/dL 70-105 Serum or plasma calcium measurement (mass/volume) 8.2 mg/dL 8.5-10.1 Serum or plasma phosphate measurement (mass/volume) - 12/01/18 08:37 Serum or plasma phosphate measurement (mass/volume) 2.9 mg/dL 2.3-4.7 Magnesium - 12/01/18 08:37 Magnesium 1.8 mg/dL 1.8-2.4 Encounters ACCT No. Visit Date/Time Discharge Status Pt. Type Provider Facility Loc./Unit Complaint [id number] 02/25/2013 11:17:00 02/25/2013 23:59:59 CLS Outpatient [id number] 12/01/2018 09:24:00 ACT Inpatient MICHELLE COLLADO DO [facility] 4TH HIP FX [id number] 11/01/2014 14:08:00 Document Registration [id number] 08/29/2011 10:42:00 Document Registration [id number] 08/23/2010 10:10:00 Document Registration [id number] 08/03/2010 11:09:00 Document Registration [id number] 08/24/2009 13:13:00 Document Registration
--- OUTSIDE RECORDS SUMMARY | 2018-12-01 10:27 | XMS REPORT | Clinical Summary ---
Author Author [facility] Organization [facility] Address Unknown Phone Unavailable Care Team Providers Care Mutuel Clerk Name Role Phone PCP Unavailable Allergies Not on File Current Medications Not on file Active Problems Not on file Social History Tobacco Use Types Packs/Day Years Used Date Never Assessed Sex Assigned at Date Recorded Not on file Last Filed Vital Signs Not on file Plan of Treatment Not on file Results Not on filefrom Last 3 Months
--- NOTE | 2018-12-01 11:54 | Occupational Therapy Eval ---
OT Evaluation-General/PLF Medical Diagnosis Admission Date Dec 01, 2018 at 09:24 Medical Diagnosis: left hip fx Onset Date: Nov 30, 2018 Therapy Diagnosis Therapy Diagnosis: decreased self care skills Height/Weight Height (Feet): 5 Height (Inches): 5.00 Weight (Pounds): 106 Precautions Precautions/Isolations: Fall Prevention, Standard Precautions Safety Interventions: Reorient-PRN Referral Physician: Odilia Medical History Additional Medical History cornea transplant Current History Pt had a fall resulting in left hip fracture. Now s/p hemiarthroplasty Reviewed History: Yes Social History Home: Multilevel Current Living Status: Alone Entry Into Home: Stairs With Railing Steps Into Home: 3 ADL-Prior Level of Function Therapy Code Descriptions/Definitions Functional [place] Measure: 0=Not Assessed/NA 4=Minimal Assistance 1=Total Assistance 5=Supervision or Setup 2=Maximal Assistance 6=Modified [place] 3=Moderate Assistance 7=Complete [place] Therapy Quality Codes: 6 Independent with activity with or without an assistive device 5 Patient requires set up or clean up by helper. Patient completes activity by themselves 4 Supervision or touching assist (CGA). [place] provide cues , steadying assist 3 The helper provides less than half the effort to complete the activity 2 The helper provides more than half the effort to complete the activity 1 Dependent. The helper does all the effort to complete an activity 7 Patient refused to complete or attempt activity 9 The patient did not perform the activity before the current illness or injury 88 Not attempted due to Medical conditions or safety concerns Functional Abilities and Goals: Independent: Patient completed the activities by him/herself, with or without an assistive device, with no assistance from a helper. Needed Some Help: Patient needed partial assistance from another person to complete activities. Dependent: A helper completed the activities for the patient. Unknown: Not Applicable: ADL PLOF Comments Pt reports being independent with self care and mobility Self Care: Independent Functional Cognition: Independent DME/Equipment: Tub Drive Self: Yes OT Current Status Subjective Pt in bed, agrees to therapy. Pt states her pain isn't bad as long as she is still. Pt states she was up in the chair earlier and started to feel faint, but is doing better now that she is back in bed. Mental Status/Objective Patient Orientation: Person, Place, Situation Attachments: IV Current Glasses/Contacts: Yes Hearing Aids: No Hand Dominance: Right Upper Extremity ROM Grossly WFL Upper Extremity Coordination Intact Upper Extremity Sensation Intact per pt report Upper Extremity Strength grossly 4/5 ADL-Treatment ADL-Current Pt participated in UE assessment while in bed. Declined OOB activity secondary to recently getting back to bed. Education provided regarding role of OT and plan of care. Pt states understanding of education and is in agreement with plan. Will assess ADLs in future session as pt able to tolerate. Pt in bed with needs met and son present after session. Therapy Code Descriptions/Definitions Functional [place] Measure: 0=Not Assessed/NA 4=Minimal Assistance 1=Total Assistance 5=Supervision or Setup 2=Maximal Assistance 6=Modified [place] 3=Moderate Assistance 7=Complete [place] Therapy Quality Codes: 6 Independent with activity with or without an assistive device 5 Patient requires set up or clean up by helper. Patient completes activity by themselves 4 Supervision or touching assist (CGA). [place] provide cues , steadying assist 3 The helper provides less than half the effort to complete the activity 2 The helper provides more than half the effort to complete the activity 1 Dependent. The helper does all the effort to complete an activity 7 Patient refused to complete or attempt activity 9 The patient did not perform the activity before the current illness or injury 88 Not attempted due to Medical conditions or safety concerns Eating (FIM): 5 (by pt report) Education OT Patient Education: Rehab process Teaching Recipient: Patient Teaching Methods: Discussion Response to Teaching: Verbalize Understanding OT Short Term Goals Short Term Goals 1=Demonstrate adherence to instructed precautions during ADL tasks. 2=Patient will verbalize/demonstrate understanding of assistive devices/ modifications for ADL. 3=Patient will improve strength/tolerance for activity to enable patient to perform ADL's. OT Residential Goals Residential Goals Time Frame: Dec 15, 2018 Eating (FIM): 6 Grooming(FIM): 6 Bathing(FIM): 5 Upper Body Dressing(FIM): 5 Lower Body Dressing(FIM): 5 Toileting(FIM): 5 Additional Goals: 1-Demonstrate ADL Tasks, 2-Verbalize Understanding, 3- ImproveStrength/Jennifer 1=Demonstrate adherence to instructed precautions during ADL tasks. 2=Patient will verbalize/demonstrate understanding of assistive devices/ modifications for ADL. 3=Patient will improve strength/tolerance for activity to enable patient to perform ADL's. OT Education/Plan Problem List/Assessment Assessment: Decreased Activ Tolerance, Decreased UE Strength, Dependent Transfers, Impaired Self-Care Skills Pt s/p fall with left hip fracture, now s/p hemiarthroplasty. Pt to benefit from skilled OT intervention for ADL training, transfers, strengthening, and safety education to increase level of independence and allow safe discharge plan. Discharge Recommendations Plan/Recommendations: Continue POC Treatment Plan/Plan of Care Treatment,Training & Education: Yes Patient would benefit from OT for education, treatment and training to promote independence in ADL's, mobility, safety and/or upper extremity function for ADL' s. Plan of Care: ADL Retraining, Functional Mobility, UE Funct Exercise/Act Treatment Duration: Dec 15, 2018 Frequency: 5 times per week Estimated Hrs Per Day: .25 hour per day Agreement: Yes Rehab Potential: Good Time/GCodes Start Time: 11:02 Stop Time: 11:14 Total Time Billed (hr/min): 12 Billed Treatment Time 1 visitCHERRY(12minutes) LIANG MARIANO OT Dec 01, 2018 11:53
[2018-12-01 12:00] VITALS: BP 108/64
--- NOTE | 2018-12-01 12:05 | Consultation-Hospitalist ---
HPI History of Present Illness: HPI/Chief Complaint 1155. The patient is an 88-year-old known to me for many years. She fell yesterday and fractured her left hip. She reported that she had had diarrhea the week before and had continued to feel weak area and she felt that that was a factor in her fall. She did state that recently for safety she had taken to using a cane for balance when she was out of her home. She reported that she felt as if she might have fainted as a function of the generalized weakness and diarrheal illness. Date Seen 12/01/18 Attending Physician Jose Hartley DO PCP Barber Messer DO Referring Physician Date of Admission Dec 01, 2018 at 09:24 Home Medications & Allergies Home Medications Reviewed patient Home Medication Reconciliation performed by pharmacy medication reconciliations light technician and/or nursing. Patients Allergies have been reviewed. Y Allergies Allergies Uncoded Allergies SULFA ( Allergy, Mild, 08/03/10) Past [id number]-[id number]-Bmzmxp Hx Patient Social History Number of Children: 3 Number of living children: 3 Alcohol Use: Denies Use Recreational Drug Use: No Smoking Status: Never a Smoker 2nd Hand Smoke Exposure: No Recent Foreign Travel: No Contact w/other who traveled: No Recent Hopitalizations: No Recent Infectious Disease Expo: No Immunizations Up To Date Date of Pneumonia Vaccine: Dec 04, 2017 Date of Influenza Vaccine: Jun 02, 2018 Seasonal Allergies Seasonal Allergies: No Past Medical History Surgeries: Eye Surgery Review of Systems Constitutional: see HPI EENTM: no symptoms reported Respiratory: no symptoms reported Cardiovascular: no symptoms reported Gastrointestinal: no symptoms reported, other (recent diarrheal illness but resolved at the time of fall) Genitourinary: no symptoms reported Musculoskeletal: other Skin: no symptoms reported Psychiatric/Neurological: No Symptoms Reported Physical Exam Physical Exam Vital Signs Vital Signs - First Documented 11/30/18 13:50 Temp 98.1 Pulse 86 Resp 20 B/P (MAP) 139/79 (99) Pulse Ox 95 O2 Delivery Nasal Cannula O2 Flow Rate 2.00 Capillary Refill : Less Than 3 Seconds Height, Weight, BMI Height: 5'5.00" Weight: 106lbs. oz. 48.030684qh; BMI Method:Stated General Appearance: No Apparent Distress, WD/WN, Other HEENT: PERRL/EOMI, TMs Normal Neck: Full Range of Motion, Normal Inspection Respiratory: Lungs Clear, Normal Breath Sounds, No Accessory Muscle Use, No Respiratory Distress Cardiovascular: Normal Peripheral Pulses Gastrointestinal: Non Tender, Soft Extremity: Normal Capillary Refill, Other Neurologic/Psychiatric: Alert, Oriented x3 Skin: Normal Color, Warm/Dry Results Results/Procedures Labs Laboratory Tests 11/30/18 13:50 12/01/18 04:15 Patient resulted labs reviewed. Assessment/Plan Assessment and Plan Assess & Plan/Chief Complaint Fall with left hip fracture Clinical Quality Measures DVT/VTE Risk/Contraindication: Risk Factor Score Per Nursin RFS Level Per Nursing on Admit: 4+=Very High KAMAR EDWARDS MD Dec 01, 2018 12:04
[2018-12-01] MEDS ORDERED: PRED5DRO24 OU (12:25)
[2018-12-01] MEDS ORDERED: [UNRECOGNIZED DRUG - OTHER] OU (12:38)
--- NOTE | 2018-12-01 13:17 | Progress Note (SOAP) ---
Subjective Date Seen by a Provider: Dec 01, 2018 Time Seen by a Provider: 13:00 Subjective/Events-last exam Awake and alert Medication controlling pain. Dizzy when she stands Review of Systems General: Appetite HEENT: No Head Aches, No Visual Changes, No Eye Pain, No Ear Pain, No Dysphasia , No Sinus Congestion, No Post Nasal Drip, No Sore Throat, No Other Pulmonary: No Dyspnea, No Cough, No Pleuritic Chest Pain, No Other Cardiovascular: No: Chest Pain, Palpitations, Orthopnea, Paroxysmal Noc. Dyspnea, Edema, Lt Headedness, Other Gastrointestinal: No: Nausea, Vomiting, Abdominal Pain, Diarrhea, Constipation , Melena, Hematochezia, Other Genitourinary: No Dysuria, No Frequency, No Incontinence, No Hematuria, No Retention, No Other Musculoskeletal: other Neurological: No: Weakness, Numbness, Incoordination, Change in speech, Confusion, Seizures, Other Objective Exam Vital Signs Date Time Temp Pulse Resp B/P (MAP) Pulse Ox O2 Delivery O2 Flow Rate FiO2 12/01/18 09:00 95 Nasal Cannula 2.00 12/01/18 08:00 98.2 94 16 106/59 (75) 94 Nasal Cannula 2.00 12/01/18 03:34 99.0 98 14 112/57 (75) 94 Nasal Cannula 2.00 11/30/18 23:17 98.9 90 18 118/62 (80) 98 Room Air 11/30/18 21:54 97.4 87 18 162/77 (105) 95 Room Air 11/30/18 20:50 95 Nasal Cannula 2.00 11/30/18 18:12 83 18 147/87 (107) 100 Nasal Cannula 2.00 11/30/18 16:07 85 18 147/87 (107) 98 Room Air 11/30/18 13:50 98.1 86 20 139/79 (99) 95 Nasal Cannula 2.00 I & O 12/01/18 07:00 Intake Total 1010 ml Output Total 700 ml Balance 310 ml Capillary Refill : Less Than 3 Seconds General Appearance: No Apparent Distress HEENT: No PERRL/EOMI, No TMs Normal, No Normal ENT Inspection, No Pharynx Normal, No Moist Mucous Membranes, No Pale Conjunctivae (L), No Pale Conjunctivae (R), No Pharyngeal Erythema, No Photophobia, No Scleral Icterus (L) , No Scleral Icterus (R), No TM Abnormal (L), No TM Abnormal (R), No Tonsillar Exudate, No Tonsillar Enlargement, No Other Neck: No Full Range of Motion, No Normal Inspection, No Non Tender, No Supple, No Carotid Bruit, No JVD, No Limited Range of Motion, No Lymphadenopathy (L), No Lymphadenopathy (R), No Tender Lateral, No Tender Midline, No Thyromegaly, No Other Respiratory: No Chest Non Tender, No Lungs Clear, No Normal Breath Sounds, No No Accessory Muscle Use, No No Respiratory Distress, No Accessory Muscle Use, No Crackles, No Decreased Breath Sounds, No Expiration, No Inspiration, No Pleural Rub, No Rales, No Respiratory Distress, No Rhonci, No Stridor, No Wheezing, No Other Cardiovascular: No Regular Rate, Rhythm, No No Edema, No No Gallop, No No JVD, No No Murmur, No Normal Peripheral Pulses, No Bradycardia, No Diastolic Murmur, No Systolic Murmur, No Extra Beats, No Friction Rub, No Gallop/S3, No Gallop/S4 , No Irregularly Irregular, No JVD, No Tachycardia, No Other Peripheral Pulses: 2+ Left Dors-Pedis (L) Gastrointestinal: No normal bowel sounds, No non tender, No soft, No no organomegaly, No no pulsatile mass, No abnormal bowel sounds, No distended, No guarding, No rebound, No tenderness, No hernia, No mass, No hepatomegaly, No spleenomegaly, No other Extremity: Other (Dressing dry left hip Neg swellind left leg) Neurologic/Psychiatric: Oriented x3 Skin: Warm/Dry Lymphatic: No No Adenopathy, No Axilla Node Tender (L), No Axilla Node Tender ( R), No Inguinal Node Tender (L), No Inguinal Node Tender (R), No Other Results Lab Laboratory Tests 11/30/18 13:50: White Blood Count 11.4H, Red Blood Count 3.68L, Hemoglobin 11.9, Hematocrit 36, Mean Corpuscular Volume 97, Mean Corpuscular Hemoglobin 32, Mean Corpuscular Hemoglobin Concent 33, Red Cell Distribution Width 12.6, Platelet Count 214, Mean Platelet Volume 10.9H, Neutrophils (%) (Auto) 89H, Lymphocytes (%) (Auto) 6L, Monocytes (%) (Auto) 5, Eosinophils (%) (Auto) 0, Basophils (%) (Auto) 0, Neutrophils # (Auto) 10.1H, Lymphocytes # (Auto) 0.7L, Monocytes # (Auto) 0.6, Eosinophils # (Auto) 0.0, Basophils # (Auto) 0.0, Neutrophils % (Manual) 90, Lymphocytes % (Manual) 6, Monocytes % (Manual) 3, Eosinophils % (Manual) 0, Basophils % (Manual) 0, Band Neutrophils 1, Toxic Granulation 1+, Blood Morphology Comment NORMAL, Prothrombin Time 13.7, INR Comment 1.1, Sodium Level 140, Potassium Level 3.6, Chloride Level 105, Carbon Dioxide Level 23, Anion Gap 12, Blood Urea Nitrogen 22H, Creatinine 0.87, Estimat Glomerular Filtration Rate > 60, BUN/Creatinine Ratio 25, Glucose Level 128H, Calcium Level 9.2, Corrected Calcium 9.3, Total Bilirubin 0.4, Aspartate Amino Transf (AST/SGOT) 29 , Alanine Aminotransferase (ALT/SGPT) 21, Alkaline Phosphatase 61, Total Protein 6.7, Albumin 3.9 11/30/18 14:40: Blood Gas Puncture Site RIGHT BRACHIAL, Blood Gas Patient Temperature 98.6, Arterial Blood pH 7.37, Arterial Blood Partial Pressure CO2 43, Arterial Blood Partial Pressure O2 79, Arterial Blood HCO3 24, Arterial Blood Total CO2 25.6, Arterial Blood Oxygen Saturation 95, Arterial Blood Base Excess -0.3, [place] Test POSITIVE, Blood Gas Ventilator Setting NO, Blood Gas Inspired Oxygen 3 L 11/30/18 14:45: Urine Color YELLOW, Urine Clarity SLIGHTLY CLOUDY, Urine pH 7, Urine Specific [place] 1.015L, Urine Protein 1+H, Urine Glucose (UA) NEGATIVE, Urine Ketones 2+ H, Urine Nitrite NEGATIVE, Urine Bilirubin NEGATIVE, Urine Urobilinogen NORMAL, Urine Leukocyte Esterase NEGATIVE, Urine RBC (Auto) NEGATIVE, Urine RBC NONE, Urine WBC RARE, Urine Squamous Epithelial Cells 2-5, Urine Crystals NONE, Urine Bacteria MODERATEH, Urine Casts NONE, Urine Mucus NEGATIVE, Urine Culture Indicated YES 12/01/18 04:15: White Blood Count 9.3, Red Blood Count 3.12L, Hemoglobin 10.1L, Hematocrit 30L, Mean Corpuscular Volume 97, Mean Corpuscular Hemoglobin 32, Mean Corpuscular Hemoglobin Concent 33, Red Cell Distribution Width 12.6, Platelet Count 179, Mean Platelet Volume 10.0, Sodium Level 138, Potassium Level 3.0L, Chloride Level 104, Carbon Dioxide Level 24, Anion Gap 10, Blood Urea Nitrogen 17, Creatinine 0.78, Estimat Glomerular Filtration Rate > 60, BUN/Creatinine Ratio 22, Glucose Level 132H, Calcium Level 8.2L 12/01/18 08:37: Phosphorus Level 2.9, Magnesium Level 1.8 Microbiology 11/30/18 Urine Culture - Final, Complete NO GROWTH Assessment/Plan Assessment/Plan Assess & Plan/Chief Complaint Left femoral neck fracture status post bipolar femoral hemiarthroplasty P: Continue PT and medical management Final Diagnosis Displaced left femoral neck fracture Clinical Quality Measures Admission Status Admission Dx A: left hip femoral neck fracture P: left hip bipolar femoral librado-arthroplasty, consult internal medicine for medical management, Dr. Woody to manage pulmonary post op. social service director consulted for DC planning. DVT/VTE Risk/Contraindication: VTE Addressed: Yes Risk Factor Score Per Nursin RFS Level Per Nursing on Admit: 4+=Very High Urinary Catheter-Non SCIP Pts: Reason for Catheter Continuanc: 24 Hours Post Op MICHELLE COLLADO DO Dec 01, 2018 13:17
[2018-12-01] MEDS: prednisoLONE 1% OPTH (PRED FORTE) 5 ML BTL OP SCH (13:57)
--- NOTE | 2018-12-01 13:58 | NUR ---
PT'S DAUGHTER BROUGHT HER EYE GTTS TO FLOOR AND PT APPLIED THE EYE DROPS PRIOR TO THIS RN KNOWING THEY WERE ON THE FLOOR
--- NOTE | 2018-12-01 14:10 | NUR ---
Initial visit: pt is a member of [facility] and also visits [facility] with her family. Pt's grandson was recently discharged from the hospital, and several extended family members have been admitted for various needs in the past month. Offered active listening and prayer for healing, encouragement and support.
--- NOTE | 2018-12-01 14:33 | Physical Therapy Daily Note ---
PT Daily Note-Current Subjective Pt, family and nsg reports pt has been having terrible spasms in Left hip. Pt declining to get out of bed this afternoon, but agreeable to exercises in bed for PT treatment Pain Location: Left Location Body Site: Hip Comment: terrible spasming pains,uncontrolled Appearance Upon arrival, pt supine in bed with family present, awake and alert, episodes of spasming pains Left hip and thigh, uncontrollable with obvious signs of pain Nsg arrived during session and pt was given pain med At end of session, pt supine in bed, abductor pillow in place, LE's elevated to decrease pull in LLE mm's to help decrease spasms, call light, phone and bedside table within reach, family present Mental Status Attachments: Oxygen, Ramsay Catheter, IV Transfers Therapy Code Descriptions/Definitions Functional [place] Measure: 0=Not Assessed/NA 4=Minimal Assistance 1=Total Assistance 5=Supervision or Setup 2=Maximal Assistance 6=Modified [place] 3=Moderate Assistance 7=Complete [place] Therapy Quality Codes: 6 Independent with activity with or without an assistive device 5 Patient requires set up or clean up by helper. Patient completes activity by themselves 4 Supervision or touching assist (CGA). [place] provide cues , steadying assist 3 The helper provides less than half the effort to complete the activity 2 The helper provides more than half the effort to complete the activity 1 Dependent. The helper does all the effort to complete an activity 7 Patient refused to complete or attempt activity 9 The patient did not perform the activity before the current illness or injury 88 Not attempted due to Medical conditions or safety concerns Weight Bearing Right Lower Extremity: Right Full Weight Bearing Left Lower Extremity: Left Full Weight Bearing Hip precautions Exercises Supine Ex: Ankle pumps, Quad Set, Glut sets, Heel Slides, Straight leg raise, Hip abd/add Supine Reps: 20 (AROM-AAROM with bed exercises due to intense mm spasms. (+) toe curls) Treatments Exercises to improve ROM, strength, and to decrease pain and mm spasms Assessment Pt did not feel able to get up out of bed this afternoon due to mm spasms so frequent and so bad that her entire body stiffens. Did perform bed exercises with LLE but requiring AAROM and at times PROM due to pain and spasms PT Supervisor Telephone Information Goals Supervisor Telephone Information Goals PT Fdc Goals Time Frame: Dec 22, 2018 Transfers (B,C,W/C) (FIM): 6 Gait (FIM): 6 PT Plan Treatment/Plan Treatment Plan: Continue Plan of Care Treatment Plan: Bed Mobility, Education, Functional Activity Jennifer, Functional Strength, Gait, Safety, Therapeutic Exercise, Transfers Treatment Duration: Dec 15, 2018 Frequency: 11 times per week Estimated Hrs Per Day: 1 hour per day Patient and/or Family Agrees t: Yes Safety Risks/Education Patient Education: Reviewed Precautions Teaching Recipient: Patient Teaching Methods: Discussion Response to Teaching: Verbalize Understanding Time/GCodes Time In: 1405 Time Out: 1422 Total Billed Treatment Time: 17 Total Billed Treatment 1 visit, EX x 1 unit VAHE ROSS PTA Dec 01, 2018 14:33
[2018-12-01 15:30] VITALS: BP 131/61
[2018-12-01 19:05] VITALS: BP 136/65
[2018-12-01] MEDS: SENNA W/DOCUSATE (SENOKOT S) TABLET PO SCH (20:04)
[2018-12-02] VITALS: BP 133/75
[2018-12-02] MEDS: D5 1/2 NS 1000 ML IV SOLUTION 1,000 ML IV SCH ×2 (01:33→16:00)
[2018-12-02] MEDS: HYDROcodone/APAP 10 MG/325 MG (LORTAB) TAB PO PRN ×3 (01:33→19:51)
[2018-12-02 04:00] VITALS: BP 125/64
[2018-12-02 04:45] LABS: HEMOGLOBIN 10.5 G/DL (11.5-16.0); MEAN PLATELET VOLUME 10.4 FL (7.4-10.4); RED CELL DISTRIBUTION WIDTH 12.6 % (10.0-14.5); WHITE BLOOD COUNT 9.5 10^3/uL (4.3-11.0)
[2018-12-02 05:06] LABS: BUN/CREATININE RATIO 18; CALCIUM 8.5 MG/DL (8.5-10.1); CARBON DIOXIDE 22 MMOL/L (21-32); CHLORIDE 104 MMOL/L (98-107); CREATININE SERUM 0.71 MG/DL (0.60-1.30); GFR ESTIMATED > 60; GLUCOSE 118 MG/DL (70-105); POTASSIUM 3.4 MMOL/L (3.6-5.0); SODIUM 135 MMOL/L (135-145)
--- NOTE | 2018-12-02 06:56 | Progress Note (SOAP) ---
Subjective Date Seen by a Provider: Dec 02, 2018 Time Seen by a Provider: 06:52 Subjective/Events-last exam No complaints this morning, She is post op day 2 s/p left hip prosthesis for displaced femoral neck fracture. She is ambulating poorly so far. Objective Exam Vital Signs Date Time Temp Pulse Resp B/P (MAP) Pulse Ox O2 Delivery O2 Flow Rate FiO2 12/02/18 04:00 99.2 98 18 125/64 (84) 95 Nasal Cannula 2.00 12/02/18 00:00 98.2 98 18 133/75 (94) 92 Nasal Cannula 2.00 12/01/18 21:00 Nasal Cannula 2.00 12/01/18 19:05 98.9 88 18 136/65 (88) 93 Nasal Cannula 2.00 12/01/18 17:24 Nasal Cannula 2.00 12/01/18 15:30 99.2 91 18 131/61 (84) 96 Nasal Cannula 2.00 12/01/18 14:42 98.9 12/01/18 12:00 98.9 94 16 108/64 (79) 97 Nasal Cannula 2.00 12/01/18 09:00 95 Nasal Cannula 2.00 12/01/18 08:00 98.2 94 16 106/59 (75) 94 Nasal Cannula 2.00 I & O 12/02/18 07:00 Intake Total 640 ml Output Total 555 ml Balance 85 ml Capillary Refill : Less Than 3 SecondsLess Than 3 Seconds General Appearance: No Apparent Distress Extremity: Normal Capillary Refill, Normal Inspection, No Calf Tenderness, No Pedal Edema Neurologic/Psychiatric: Alert, Oriented x3, No Motor/Sensory Deficits, Normal Mood/Affect Skin: Normal Color, Warm/Dry (dressing left hip CDI) Results Lab Laboratory Tests 12/01/18 08:37: Phosphorus Level 2.9, Magnesium Level 1.8 12/02/18 04:30: White Blood Count 9.5, Red Blood Count 3.29L, Hemoglobin 10.5L, Hematocrit 32L, Mean Corpuscular Volume 98, Mean Corpuscular Hemoglobin 32, Mean Corpuscular Hemoglobin Concent 33, Red Cell Distribution Width 12.6, Platelet Count 178, Mean Platelet Volume 10.4, Sodium Level 135, Potassium Level 3.4L, Chloride Level 104, Carbon Dioxide Level 22, Anion Gap 9, Blood Urea Nitrogen 13, Creatinine 0.71, Estimat Glomerular Filtration Rate > 60, BUN/Creatinine Ratio 18, Glucose Level 118H, Calcium Level 8.5 Microbiology 11/30/18 Urine Culture - Final, Complete NO GROWTH Assessment/Plan Assessment/Plan Assess & Plan/Chief Complaint A: s/p left hip prosthesis displaced left femoral neck fracture fall hypoxia P: Continue current treatment. Orthopedics signing off at this point. She will need follow up with Dr. Hartley in 2 weeks. Remove richard on 12/09/18 and apply steri strips. She likely will need retirement or rehab upon discharge today or tomorrow. Internal medicine to manage further care. Clinical Quality Measures DVT/VTE Risk/Contraindication: VTE Addressed: Yes Risk Factor Score Per Nursin RFS Level Per Nursing on Admit: 4+=Very High Urinary Catheter-Non SCIP Pts: Reason for Catheter Continuanc: 24 Hours Post Op NAMRATA RIOS APRN Dec 02, 2018 06:55
[2018-12-02] MEDS ORDERED: ASPI325T32 PO (06:59)
[2018-12-02] MEDS ORDERED: HYDR-3820 PO (06:59)
[2018-12-02] MEDS ORDERED: SENN-20 PO (06:59)
[2018-12-02 08:00] VITALS: BP 131/83
[2018-12-02] MEDS: SENNA W/DOCUSATE (SENOKOT S) TABLET PO SCH ×2 (09:00→19:50)
[2018-12-02] MEDS: prednisoLONE 1% OPTH (PRED FORTE) 5 ML BTL OP SCH (09:01)
[2018-12-02] MEDS: ASPIRIN E.C. 325 MG (ECOTRIN) TABLET PO SCH (09:01)
[2018-12-02] MEDS: ENOXAPARIN 30 MG/0.3 ML (LOVENOX) SYR SC SCH (09:01)
[2018-12-02] MEDS: fentaNYL INJECTION 100 MCG/2 ML AMP IVP PRN ×3 (09:17→19:50)
--- NOTE | 2018-12-02 09:39 | Progress Note-Hospitalist ---
Subjective HPI/CC On Admission Date Seen by Provider: Dec 02, 2018 Time Seen by Provider: 09:00 1155. The patient is an 88-year-old known to me for many years. She fell yesterday and fractured her left hip. She reported that she had had diarrhea the week before and had continued to feel weak area and she felt that that was a factor in her fall. She did state that recently for safety she had taken to using a cane for balance when she was out of her home. She reported that she felt as if she might have fainted as a function of the generalized weakness and diarrheal illness. Subjective/Events-last exam Pt doing really well. Definite candidate for inpatient rehab unit. Denies any pain as long as she doesn't move. Catheter still in place. Orthopedic surgery evaluated her to be along the standard protocol for hip fracture. Diarrhea has resolved which ultimately caused her to be at a higher risk for fall because she was very weak. Family at the bedside. Pt lives at home and will benefit from inpatient rehab. Review of Systems General: Fatigue Musculoskeletal: leg pain Objective Exam Vital Signs Vital Signs Date Time Temp Pulse Resp B/P (MAP) Pulse Ox O2 Delivery O2 Flow Rate FiO2 12/02/18 20:56 99.0 89 18 117/63 (81) 93 Room Air 12/02/18 12:00 2.00 Capillary Refill : Less Than 3 SecondsLess Than 3 Seconds General Appearance: No Apparent Distress HEENT: No PERRL/EOMI, No TMs Normal, No Normal ENT Inspection, No Pharynx Normal, No Moist Mucous Membranes, No Pale Conjunctivae (L), No Pale Conjunctivae (R), No Pharyngeal Erythema, No Photophobia, No Scleral Icterus (L) , No Scleral Icterus (R), No TM Abnormal (L), No TM Abnormal (R), No Tonsillar Exudate, No Tonsillar Enlargement, No Other Neck: No Full Range of Motion, No Normal Inspection, No Non Tender, No Supple, No Carotid Bruit, No JVD, No Limited Range of Motion, No Lymphadenopathy (L), No Lymphadenopathy (R), No Tender Lateral, No Tender Midline, No Thyromegaly, No Other Respiratory: No Chest Non Tender, No Lungs Clear, No Normal Breath Sounds, No No Accessory Muscle Use, No No Respiratory Distress, No Accessory Muscle Use, No Crackles, No Decreased Breath Sounds, No Expiration, No Inspiration, No Pleural Rub, No Rales, No Respiratory Distress, No Rhonci, No Stridor, No Wheezing, No Other Cardiovascular: No Regular Rate, Rhythm, No No Edema, No No Gallop, No No JVD, No No Murmur, No Normal Peripheral Pulses, No Bradycardia, No Diastolic Murmur, No Systolic Murmur, No Extra Beats, No Friction Rub, No Gallop/S3, No Gallop/S4 , No Irregularly Irregular, No JVD, No Tachycardia, No Other Gastrointestinal: Non Tender, Soft Extremity: Normal Capillary Refill, Normal Inspection, No Calf Tenderness, No Pedal Edema Neurologic/Psychiatric: Alert, Oriented x3, No Motor/Sensory Deficits, Normal Mood/Affect Skin: Normal Color, Warm/Dry Lymphatic: No No Adenopathy, No Axilla Node Tender (L), No Axilla Node Tender ( R), No Inguinal Node Tender (L), No Inguinal Node Tender (R), No Other Results/Procedures Lab Laboratory Tests 12/02/18 04:30 Patient resulted labs reviewed. 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 Post op anemia Plan: Monitor labs Home [facility] tomorrow Diagnosis/Problems Diagnosis/Problems (1) Closed left hip fracture Status: Acute Qualifiers: Encounter type: initial encounter Qualified Codes: S72.002A - Fracture of unspecified part of neck of left femur, initial encounter for closed fracture (2) Corneal transplant status Status: Chronic (3) Anemia due to acute blood loss Status: Acute (4) Advanced age Status: Chronic Clinical Quality Measures DVT/VTE Risk/Contraindication: VTE Addressed: Yes Risk Factor Score Per Nursin RFS Level Per Nursing on Admit: 4+=Very High Urinary Catheter-Non SCIP Pts: Reason for Catheter Continuanc: 24 Hours Post Op MICHELLE LARSON DO Dec 02, 2018 09:39
--- NOTE | 2018-12-02 09:53 | Pulmonary Progress Note ---
Subjective Time Seen by a Provider: 09:52 Subjective/Events-last exam PT appears to be doing better. Sepsis Event Evaluation Height, Weight, BMI Height: 5'5.00" Weight: 106lbs. oz. 48.352940wy; BMI Method:Stated Exam Exam Vital Signs Date Time Temp Pulse Resp B/P (MAP) Pulse Ox O2 Delivery O2 Flow Rate FiO2 12/02/18 04:00 99.2 98 18 125/64 (84) 95 Nasal Cannula 2.00 12/02/18 00:00 98.2 98 18 133/75 (94) 92 Nasal Cannula 2.00 12/01/18 21:00 Nasal Cannula 2.00 12/01/18 19:05 98.9 88 18 136/65 (88) 93 Nasal Cannula 2.00 12/01/18 17:24 Nasal Cannula 2.00 12/01/18 15:30 99.2 91 18 131/61 (84) 96 Nasal Cannula 2.00 12/01/18 14:42 98.9 12/01/18 12:00 98.9 94 16 108/64 (79) 97 Nasal Cannula 2.00 I & O 12/02/18 07:00 Intake Total 740 ml Output Total 855 ml Balance -115 ml Height & Weight Height: 5'5.00" Weight: 106lbs. oz. 48.771258kz; BMI Method:Stated General Appearance: No Apparent Distress, WD/WN, Other HEENT: PERRL/EOMI, TMs Normal Neck: Full Range of Motion, Normal Inspection Respiratory: Lungs Clear, Normal Breath Sounds, No Accessory Muscle Use, No Respiratory Distress Cardiovascular: Normal Peripheral Pulses Capillary Refill: Less Than 3 Seconds Peripheral Pulses: 2+ Left Dors-Pedis (L) Gastrointestinal: normal bowel sounds, non tender, soft Extremity: Normal Capillary Refill, Other Neurologic/Psychiatric: Alert, Oriented x3 Skin: Normal Color, Warm/Dry Lymphatic: No No Adenopathy, No Axilla Node Tender (L), No Axilla Node Tender ( R), No Inguinal Node Tender (L), No Inguinal Node Tender (R), No Other Results Lab Laboratory Tests 11/30/18 13:50 12/01/18 04:15 12/02/18 04:30 Assessment/Plan Assessment/Plan S/p fall with left hip fracture -Dr. Hartley is planning surgical repair today Hypoxia- probably chronic -ABG reviewed- c02 43 -CT shows no PE however it does show some chronic changes. -I question if pt has been hypoxic for awhile maged since she does not feel SOB. -Pt will probably need home 02 upon discharge. -Will do out pt PFT Hypokalemia -Replace -Check Mg, and phos Lung nodule -Will follow as an out patient SHAYLA VELEZ DO Dec 02, 2018 09:53
--- NOTE | 2018-12-02 09:54 | Occupational Ther Daily Note ---
OT Current Status-Daily Note Subjective Pt alert, sitting in recliner. Pt agrees to therapy. No c/o pain at this time. Mental Status/Objective Patient Orientation: Person, Place Therapy Code Descriptions/Definitions Functional [place] Measure: 0=Not Assessed/NA 4=Minimal Assistance 1=Total Assistance 5=Supervision or Setup 2=Maximal Assistance 6=Modified [place] 3=Moderate Assistance 7=Complete [place] Attachments: Ramsay Catheter, IV, Oxygen ADL-Treatment Pt agrees to sponge bath. Nrsg in room. After set up, pt able to cleanse upper body and upper legs by self then CGA in standing to cleanse surekha area/ buttocks. Pt was able to don hospital gown over head to simulate regular shirt. Minimal verbal cues needed for pt to sequence next step in bathing/ dressing. Pt unable to reach lower legs at this time. Min A for sit to stand. Pt able to scoot self back in chair with arms by self. After therapy, pt sitting in recliner with call light/phone in reach. Nrsg present in room. All needs met in room. Grooming (FIM): 5 Bathing (FIM): 4 Bathing Location: L Arm, R Arm, L Upper Leg, R Upper Leg, Chest, Abdomen, Buttocks, Perineal Area Lower Body Dressing (FIM): 2 Transfers (B, C, W/C) (FIM): 4 Family assisted with setting up oral care. Pt brushed hair after given supplies. OT Short Term Goals Short Term Goals 1=Demonstrate adherence to instructed precautions during ADL tasks. 2=Patient will verbalize/demonstrate understanding of assistive devices/ modifications for ADL. 3=Patient will improve strength/tolerance for activity to enable patient to perform ADL's. OT Log Chain Feeder Goals Log Chain Feeder Goals Time Frame: Dec 15, 2018 Eating (FIM): 6 Grooming(FIM): 6 Bathing(FIM): 5 Upper Body Dressing(FIM): 5 Lower Body Dressing(FIM): 5 Toileting(FIM): 5 Additional Goals: 1-Demonstrate ADL Tasks, 2-Verbalize Understanding, 3- ImproveStrength/Jennifer 1=Demonstrate adherence to instructed precautions during ADL tasks. 2=Patient will verbalize/demonstrate understanding of assistive devices/ modifications for ADL. 3=Patient will improve strength/tolerance for activity to enable patient to perform ADL's. OT Education/Plan Problem List/Assessment Assessment: Decreased Activ Tolerance, Impaired Coordination, Impaired Funct Balance, Impaired Self-Care Skills Pt s/p fall with left hip fracture, now s/p hemiarthroplasty. Pt to benefit from skilled OT intervention for ADL training, transfers, strengthening, and safety education to increase level of independence and allow safe discharge plan. Discharge Recommendations Plan/Recommendations: Continue POC Treatment Plan/Plan of Care Patient would benefit from OT for education, treatment and training to promote independence in ADL's, mobility, safety and/or upper extremity function for ADL' s. Plan of Care: ADL Retraining, Functional Mobility, UE Funct Exercise/Act Treatment Duration: Dec 15, 2018 Frequency: 5 times per week Estimated Hrs Per Day: .25 hour per day Agreement: Yes Rehab Potential: Good Time/GCodes Start Time: 09:20 Stop Time: 09:45 Total Time Billed (hr/min): 25 Billed Treatment Time 1 visit-ADL 2 (25 min) JAMIE NELSON Dec 02, 2018 09:54
--- NOTE | 2018-12-02 09:57 | Physical Therapy Daily Note ---
PT Daily Note-Current Subjective Patient reports she has more energy today and agrees to PT. Family present. Pain Numeric Pain Scale: 8 Location: Left Location Body Site: Hip Pain Description: Acute Mental Status Patient Orientation: Normal For Age Attachments: Oxygen, Ramsay Catheter, IV Transfers Therapy Code Descriptions/Definitions Functional [place] Measure: 0=Not Assessed/NA 4=Minimal Assistance 1=Total Assistance 5=Supervision or Setup 2=Maximal Assistance 6=Modified [place] 3=Moderate Assistance 7=Complete [place] Therapy Quality Codes: 6 Independent with activity with or without an assistive device 5 Patient requires set up or clean up by helper. Patient completes activity by themselves 4 Supervision or touching assist (CGA). [place] provide cues , steadying assist 3 The helper provides less than half the effort to complete the activity 2 The helper provides more than half the effort to complete the activity 1 Dependent. The helper does all the effort to complete an activity 7 Patient refused to complete or attempt activity 9 The patient did not perform the activity before the current illness or injury 88 Not attempted due to Medical conditions or safety concerns Transfers (B, C, W/C) (FIM): 4 Scootin Supine to/from Sit: 4 Sit to/from Stand: 4 Bed to/from Chair: 4 Weight Bearing Right Lower Extremity: Right Full Weight Bearing Left Lower Extremity: Left Full Weight Bearing Hip precautions Gait Training Gait (FIM): 1 Distance (FIM): 1=up to 49 ft Distance: 45' x 2 Gait Level of Assist: 4 Gait Persons Needed: 1 Gait Assistive Device: FWW very slow, antalgic Exercises Supine Ex: Ankle pumps, Quad Set Supine Reps: 10 Seated Therapy Exercises: Ankle pumps, Long arc quads Seated Reps: 10 Assessment Patient tolerates minimal activity due to increase in fatigue and increase c/o dizziness. RN notified. Plan transfer to ARU per family report. PT Exec. Creative Director Goals Exec. Creative Director Goals PT Exec. Creative Director Goals Time Frame: Dec 22, 2018 Transfers (B,C,W/C) (FIM): 6 Gait (FIM): 6 PT Plan Treatment/Plan Treatment Plan: Continue Plan of Care Treatment Plan: Bed Mobility, Education, Functional Activity Jennifer, Functional Strength, Gait, Safety, Therapeutic Exercise, Transfers Treatment Duration: Dec 15, 2018 Frequency: 11 times per week Estimated Hrs Per Day: 1 hour per day Patient and/or Family Agrees t: Yes Time/GCodes Time In: 851 Time Out: 914 Total Billed Treatment Time: 23 Total Billed Treatment 1 visit EX 9 min GT 14 min MARTY BURGOS PT Dec 02, 2018 09:57
[2018-12-02] MEDS ORDERED: KCL 20 MEQ TAB (K-DUR) PO NR (10:00)
[2018-12-02 12:00] VITALS: BP 118/67
--- NOTE | 2018-12-02 14:26 | Physical Therapy Daily Note ---
PT Daily Note-Current Subjective Patient is in bed with family present. Agrees to PT. Pain Numeric Pain Scale: 6 Location: Left Location Body Site: Hip Pain Description: Acute Mental Status Patient Orientation: Normal For Age Attachments: Ramsay Catheter, IV Transfers Therapy Code Descriptions/Definitions Functional [place] Measure: 0=Not Assessed/NA 4=Minimal Assistance 1=Total Assistance 5=Supervision or Setup 2=Maximal Assistance 6=Modified [place] 3=Moderate Assistance 7=Complete [place] Therapy Quality Codes: 6 Independent with activity with or without an assistive device 5 Patient requires set up or clean up by helper. Patient completes activity by themselves 4 Supervision or touching assist (CGA). [place] provide cues , steadying assist 3 The helper provides less than half the effort to complete the activity 2 The helper provides more than half the effort to complete the activity 1 Dependent. The helper does all the effort to complete an activity 7 Patient refused to complete or attempt activity 9 The patient did not perform the activity before the current illness or injury 88 Not attempted due to Medical conditions or safety concerns Transfers (B, C, W/C) (FIM): 4 Scootin Supine to/from Sit: 4 Sit to/from Stand: 4 Weight Bearing Right Lower Extremity: Right Full Weight Bearing Left Lower Extremity: Left Full Weight Bearing Hip precautions Gait Training Gait (FIM): 2 Distance (FIM): 1=up to 49 ft Distance: 30' x 2 Gait Level of Assist: 4 Gait Persons Needed: 1 Gait Assistive Device: FWW Patient fatigues very quickly with minimal distance. Slow, antalgic gait sequence Exercises Supine Ex: Ankle pumps, Quad Set, Heel Slides Supine Reps: 15 (AAROM left LE) Seated Therapy Exercises: Long arc quads Seated Reps: 15 Assessment Patient fatigues with minimal activity. Patient requested to return to bed and has needs met. PT Mcc Goals Furnace Setter Goals PT Furnace Setter Goals Time Frame: Dec 22, 2018 Transfers (B,C,W/C) (FIM): 6 Gait (FIM): 6 PT Plan Treatment/Plan Treatment Plan: Continue Plan of Care Treatment Plan: Bed Mobility, Education, Functional Activity Jennifer, Functional Strength, Gait, Safety, Therapeutic Exercise, Transfers Treatment Duration: Dec 15, 2018 Frequency: 11 times per week Estimated Hrs Per Day: 1 hour per day Patient and/or Family Agrees t: Yes Time/GCodes Time In: 1320 Time Out: 1343 Total Billed Treatment Time: 23 Total Billed Treatment 1 visit EX 9 min GT 14 min MARTY BURGOS PT Dec 02, 2018 14:26
[2018-12-02 16:00] VITALS: BP 112/55
--- NOTE | 2018-12-02 16:05 | NUR ---
IRF Evaluation: Order received to evaluate patient for the ARU. Chart reviewed and discussed with Dr. Henriquez - patient accepted. Met with patient to discuss details of rehabilitation program. Patient agreeable to therapy regimen and admission. Anticipate admission, 12/03/18. Thank you for this referral.
[2018-12-02] MEDS ORDERED: BACLOFEN 10 MG (LIORESAL) TAB PO PRN (20:45)
[2018-12-02] MEDS: guaiFENesin (MUCINEX) 600 MG TAB PO SCH (20:55)
[2018-12-02 20:56] VITALS: BP 117/63
[2018-12-03 00:01] VITALS: BP 134/81
[2018-12-03] MEDS: HYDROcodone/APAP 10 MG/325 MG (LORTAB) TAB PO PRN (03:04)
[2018-12-03 04:00] VITALS: BP 153/82
[2018-12-03] MEDS: D5 1/2 NS 1000 ML IV SOLUTION 1,000 ML IV SCH (06:01)
[2018-12-03 06:07] LABS: BASOPHILS % (AUTO) 0 % (0-10); EOSINOPHILS # (AUTO) 0.2 10^3/uL (0.0-0.3); EOSINOPHILS % (AUTO) 2 % (0-10); HEMATOCRIT 30 % (35-52); LYMPHOCYTES # (AUTO) 1.2 X 10^3 (1.0-4.0); LYMPHOCYTES % (AUTO) 17 % (12-44); MEAN CORPUSCULAR HEMOGLOBIN 33 PG (25-34); MEAN CORPUSCULAR HGB CONC 34 G/DL (32-36); MEAN CORPUSCULAR VOLUME 97 FL (80-99); MEAN PLATELET VOLUME 10.1 FL (7.4-10.4); MONOCYTES # (AUTO) 0.8 X 10^3 (0.0-1.0); MONOCYTES % (AUTO) 11 % (0-12); NEUTROPHILS # (AUTO) 5.1 X 10^3 (1.8-7.8); NEUTROPHILS % (AUTO) 69 % (42-75); PLATELET COUNT 189 10^3/uL (130-400); RED CELL DISTRIBUTION WIDTH 12.8 % (10.0-14.5); WHITE BLOOD COUNT 7.3 10^3/uL (4.3-11.0)
[2018-12-03 06:31] LABS: ALANINE AMINOTRANSFERASE 13 U/L (0-55); ALBUMIN 2.7 GM/DL (3.2-4.5); ALKALINE PHOSPHATASE 53 U/L (40-136); BILIRUBIN,TOTAL 0.3 MG/DL (0.1-1.0); BUN/CREATININE RATIO 16; CALCIUM 8.2 MG/DL (8.5-10.1); CARBON DIOXIDE 23 MMOL/L (21-32); CHLORIDE 108 MMOL/L (98-107); CREATININE SERUM 0.75 MG/DL (0.60-1.30); GFR ESTIMATED > 60; GLUCOSE 108 MG/DL (70-105); POTASSIUM 3.7 MMOL/L (3.6-5.0); SODIUM 137 MMOL/L (135-145); TOTAL PROTEIN 5.1 GM/DL (6.4-8.2)
[2018-12-03 08:00] VITALS: BP 143/94
[2018-12-03] MEDS: SENNA W/DOCUSATE (SENOKOT S) TABLET PO SCH (09:05)
[2018-12-03] MEDS: prednisoLONE 1% OPTH (PRED FORTE) 5 ML BTL OP SCH (09:05)
[2018-12-03] MEDS: ENOXAPARIN 30 MG/0.3 ML (LOVENOX) SYR SC SCH (09:05)
[2018-12-03] MEDS: ASPIRIN E.C. 325 MG (ECOTRIN) TABLET PO SCH (09:05)
[2018-12-03] MEDS: guaiFENesin (MUCINEX) 600 MG TAB PO SCH (09:05)
--- NOTE | 2018-12-03 09:07 | Discharge Summary-Hospitalist ---
Diagnosis/Chief Complaint Date of Admission Dec 01, 2018 at 09:24 Date of Discharge Discharge Date: Dec 03, 2018 Discharge Diagnosis (1) Closed left hip fracture Status: Acute (2) Corneal transplant status Status: Chronic (3) Anemia due to acute blood loss Status: Acute (4) Advanced age Status: Chronic Discharge Summary Discharge Physical Exam Allergies: Coded Allergies: Sulfa (Sulfonamide Antibiotics) (Unverified Allergy, Unknown, 12/02/18) lactose (Verified Allergy, Unknown, 12/02/18) Vitals & I&Os Vital Signs Date Time Temp Pulse Resp B/P (MAP) Pulse Ox O2 Delivery O2 Flow Rate FiO2 12/03/18 09:00 97 Room Air 2.00 12/03/18 08:00 96.5 91 18 143/94 (110) General Appearance: No Apparent Distress, WD/WN, Chronically ill, Thin Respiratory: Chest Non Tender, Lungs Clear, Normal Breath Sounds, No Accessory Muscle Use, No Respiratory Distress Cardiovascular: Regular Rate, Rhythm, No Edema, No Gallop, No JVD, No Murmur, Normal Peripheral Pulses Skin: Normal Color, Warm/Dry Neurologic/Psychiatric: Alert, Oriented x3, No Motor/Sensory Deficits, Normal Mood/Affect Hospital Course Was the Problem List Reviewed?: Yes Hospital course: Patient had an uneventful hospital course. She sustained a left hip fracture with uncomplicated repair by Dr. Hartley. Pain was controlled and labs were monitored. No clinical decompensation occur during the hospital course and was deemed stable for discharge to inpatient rehabilitation ultimately returned back to living independently at home. Labs (last 24 hrs) Laboratory Tests 12/03/18 05:50: White Blood Count 7.3, Red Blood Count 3.05L, Hemoglobin 10.0L, Hematocrit 30L, Mean Corpuscular Volume 97, Mean Corpuscular Hemoglobin 33, Mean Corpuscular Hemoglobin Concent 34, Red Cell Distribution Width 12.8, Platelet Count 189, Mean Platelet Volume 10.1, Neutrophils (%) (Auto) 69, Lymphocytes (%) (Auto) 17 , Monocytes (%) (Auto) 11, Eosinophils (%) (Auto) 2, Basophils (%) (Auto) 0, Neutrophils # (Auto) 5.1, Lymphocytes # (Auto) 1.2, Monocytes # (Auto) 0.8, Eosinophils # (Auto) 0.2, Basophils # (Auto) 0.0, Sodium Level 137, Potassium Level 3.7, Chloride Level 108H, Carbon Dioxide Level 23, Anion Gap 6, Blood Urea Nitrogen 12, Creatinine 0.75, Estimat Glomerular Filtration Rate > 60, BUN/ Creatinine Ratio 16, Glucose Level 108H, Calcium Level 8.2L, Corrected Calcium 9.2, Total Bilirubin 0.3, Aspartate Amino Transf (AST/SGOT) 19, Alanine Aminotransferase (ALT/SGPT) 13, Alkaline Phosphatase 53, Total Protein 5.1L, Albumin 2.7L Microbiology 11/30/18 Urine Culture - Final, Complete NO GROWTH Patient resulted labs reviewed. Pending Labs Laboratory Tests 12/03/18 05:50: White Blood Count 7.3, Red Blood Count 3.05, Hemoglobin 10.0, Hematocrit 30, Mean Corpuscular Volume 97, Mean Corpuscular Hemoglobin 33, Mean Corpuscular Hemoglobin Concent 34, Red Cell Distribution Width 12.8, Platelet Count 189, Mean Platelet Volume 10.1, Neutrophils (%) (Auto) 69, Lymphocytes (%) (Auto) 17 , Monocytes (%) (Auto) 11, Eosinophils (%) (Auto) 2, Basophils (%) (Auto) 0, Neutrophils # (Auto) 5.1, Lymphocytes # (Auto) 1.2, Monocytes # (Auto) 0.8, Eosinophils # (Auto) 0.2, Basophils # (Auto) 0.0, Sodium Level 137, Potassium Level 3.7, Chloride Level 108, Carbon Dioxide Level 23, Anion Gap 6, Blood Urea Nitrogen 12, Creatinine 0.75, Estimat Glomerular Filtration Rate > 60, BUN/ Creatinine Ratio 16, Glucose Level 108, Calcium Level 8.2, Corrected Calcium 9.2 , Total Bilirubin 0.3, Aspartate Amino Transf (AST/SGOT) 19, Alanine Aminotransferase (ALT/SGPT) 13, Alkaline Phosphatase 53, Total Protein 5.1, Albumin 2.7 Discussion & Recommendations Discharge Planning: <30 minutes discharge planning Discharge Home Medications: Active Scripts Active Aspirin EC (Aspirin) 325 Mg Tablet.dr 325 Mg PO DAILY 30 Days Hydrocodon-Acetaminophn 10-325 (Hydrocodone/Acetaminophen) 1 Each Tablet 1 Ea PO Q4H PRN Senna-Time S Tablet (Sennosides/Docusate Sodium) 1 Each Tablet 1 Ea PO BID Tylenol (Acetaminophen) 325 Mg Tablet 325 Mg PO PRN Reported [[employer] Eye Drops] 1 Drop OU TID Prednisolone Acet 1% Eye Drop (Prednisolone Acetate/Pf) 5 Ml Drops.susp 1 Drop OP DAILY 1 Days Instructions to patient/family Please see electronic discharge instructions given to patient. Clinical Quality Measures DVT/VTE Risk/Contraindication: VTE Addressed: Yes Risk Factor Score Per Nursin RFS Level Per Nursing on Admit: 4+=Very High Urinary Catheter-Non SCIP Pts: Reason for Catheter Continuanc: 24 Hours Post Op Problem Qualifiers (1) Closed left hip fracture: Encounter type: initial encounter Qualified Codes: S72.002A - Fracture of unspecified part of neck of left femur, initial encounter for closed fracture MICHELLE LARSON DO Dec 03, 2018 09:07
--- NOTE | 2018-12-03 09:25 | NUR ---
PRIOR TO A.M. MEDICATIONS PULSE WAS 91 AND IRREGULAR ON AUSCULTATION, WITH A B. P OF 143/94. IV STOPPED THIS PATIENT IS HAVING ADEQUATE INTAKE PER FAMILY AND PATIENT RESPONSE UPON THIS RN ASKING. THIS RN WILL CONT. TO MONITOR THIS PATIENT UNTIL DISCHARGE TO REHAB LATER THIS .AM.
--- NOTE | 2018-12-03 10:10 | NUR ---
PRIOR TO DISCHARGE TO INPATIENT REHAB, LADD CATHETER WAS REMOVED BY THIS RN, 9 MLS REMOVED FROM BULB PRIOR TO REMOVAL. PATIENT TOLERATED WELL, THIS RN WILL CONT TO MONITOR THIS PATIENT THROUGHOUT THE REMAINDER OF THIS SHIFT.
--- NOTE | 2018-12-03 10:15 | NUR ---
PATIENT TO REHAB AT THIS TIME WITH ASSISTANCE FROM REHAB STAFF.
== END 2018-12-03 10:15 | DRG 470 ==
LOC: EDUNIT# 13:39 → ER 13:40 → SDC 15:45 → 4TH 20:50 → SDC 12-01 09:24 → 4TH 12-01 09:24
PROVIDERS: ADMIT Orthopaedic Surgery; ATTEND Orthopaedic Surgery
PROC: 0SRS01A Replacement of Left Hip Joint, Femoral Surface with Metal Synthetic Substitute, Uncemented, Open Approach (ICD-10-PCS; principal; 2018-11-30 18:28)
DX: S72.002A Fracture of unspecified part of neck of left femur, initial encounter for closed fracture (principal); D62 Acute posthemorrhagic anemia; R09.02 Hypoxemia; R91.1 Solitary pulmonary nodule; E86.0 Dehydration; E87.6 Hypokalemia; R53.1 Weakness; R19.7 Diarrhea, unspecified; Z87.19 Personal history of other diseases of the digestive system; W01.0XXA Fall on same level from slipping, tripping and stumbling without subsequent striking against object, initial encounter; Y92.009 Unspecified place in unspecified non-institutional (private) residence as the place of occurrence of the external cause; Z94.7 Corneal transplant status; Z88.2 Allergy status to sulfonamides
CPT/HCPCS: 36415; 36600; 51702; 71045; 71275; 72170; 80048; 80053; 81000; 82805; 83735; 84100; 85007; 85025; 85027; 85610; 87088; 94664; 96374; 96376

== ENCOUNTER 2018-12-03 11:27 | Inpatient (IN) | payer MEDICARE, OTHER ==
[~2018-12-03] VITALS: Ht 157.5 cm; Wt 48.1 kg
--- NOTE | 2018-12-03 10:15 | NUR ---
Admitted to room 228-1, with an admitting diagnosis of left hip replacement, on 12/03/18 from the [facility] via w/c, accompanied by therapy. MAUREEN RODNEY introduced to surroundings, call light, bed controls, phone, TV, temperature control, lights, meal times, smoking policy, visitor policy, side rail policy, bathrooms and showers. Patient Rights given to patient in the handbook.MAUREEN RODNEY verbalizes understanding that [facility] is not responsible for the loss or damage to any personal effects or valuables that are kept in the patients posession during their hospitalization. The following Patient Care Plans were discussed with the : Discharge Planning, ,, and . MAUREEN RODNEY verbalizes understanding of Interdisciplinary Patient Education. Patient and/or family were informed about the Rapid Response Team and its purpose.
--- NOTE | 2018-12-03 11:07 | Physical Therapy Evaluation ---
PT Evaluation-General Medical Diagnosis Admission Date 12/03/18 Medical Diagnosis: left hip fx Onset Date: Nov 30, 2018 Therapy Diagnosis Therapy Diagnosis: weakness; abn gait Height/Weight Height (Feet): 5 Height (Inches): 5.00 Weight (Pounds): 106 Precautions Precautions/Isolations: Standard Precautions Weight Bear Status Right Lower Extremity: Right Full Weight Bearing Left Lower Extremity: Left Weight Bearing/Tolerated THR precautions Referral Physician: Martinez Reason for Referral: Evaluation/Treatment Medical History Current History Pt sustained a fall 11/30/2018 and sustained a left hip fx; repaired with hemiarthroplasty. Pt transferred to ARU for continued therapy services and medical management. Reviewed History: Yes Social History Home: Multilevel (basement, washer and dryer in basement) Current Living Status: Alone Entry Into Home: Stairs With Railing PT Steps Into Home: 3 PT Steps Inside Home: 12 Prior/Core FIM Prior Level of Function Therapy Code Descriptions/Definitions Functional [place] Measure: 0=Not Assessed/NA 4=Minimal Assistance 1=Total Assistance 5=Supervision or Setup 2=Maximal Assistance 6=Modified [place] 3=Moderate Assistance 7=Complete [place] Therapy Quality Codes: 6 Independent with activity with or without an assistive device 5 Patient requires set up or clean up by helper. Patient completes activity by themselves 4 Supervision or touching assist (CGA). [place] provide cues , steadying assist 3 The helper provides less than half the effort to complete the activity 2 The helper provides more than half the effort to complete the activity 1 Dependent. The helper does all the effort to complete an activity 7 Patient refused to complete or attempt activity 9 The patient did not perform the activity before the current illness or injury 88 Not attempted due to Medical conditions or safety concerns Functional Abilities and Goals: Independent: Patient completed the activities by him/herself, with or without an assistive device, with no assistance from a helper. Needed Some Help: Patient needed partial assistance from another person to complete activities. Dependent: A helper completed the activities for the patient. Unknown: Not Applicable: Bed Mobility: 7 Transfers (B,C,W/C) (FIM): 7 Gait: 6 (occas use of cane) Stairs: 6 Indoor Mobility (Ambulation): Independent Stairs: Independent Pt still drives and is a community ambulator. She is active. PT Evaluation-Current Subjective Agrees to PT. Reports she tires easily. Happy to admit to ARU> Pain Numeric Pain Scale: 4 Location: Left Location Body Site: Hip Pain Description: Ache (sore) Pt/Family Goals Her goal is to gain enough strength to return home as before. Objective Patient Orientation: Person, Place, Time, Situation Problem Solving: Good ROM/Strength ROM Lower Extremities WFL while maintaining left hip precautions. Strenght Lower Extremities Right LE is WNL; left LE is grossly 4-/5 Integumentary/Posture Integumentary Refer to nursing notes; noted skin tear where tape had been to apply bandage to surgical site. Bowel Incontinence: No Bladder Incontinence: No Posture slightly rounded shoulders but generally upright and symmetrical Neuromuscular (Tone, Coordination, Reflexes) no noted functional deficits Sensory Vision: Wears Glasses Hearing: Functional Hand Dominance: Right Sensation Right Lower Extremit: Intact Sensation Left Lower Extremity: Intact Transfers Therapy Code Descriptions/Definitions Functional [place] Measure: 0=Not Assessed/NA 4=Minimal Assistance 1=Total Assistance 5=Supervision or Setup 2=Maximal Assistance 6=Modified [place] 3=Moderate Assistance 7=Complete [place] Therapy Quality Codes: 6 Independent with activity with or without an assistive device 5 Patient requires set up or clean up by helper. Patient completes activity by themselves 4 Supervision or touching assist (CGA). [place] provide cues , steadying assist 3 The helper provides less than half the effort to complete the activity 2 The helper provides more than half the effort to complete the activity 1 Dependent. The helper does all the effort to complete an activity 7 Patient refused to complete or attempt activity 9 The patient did not perform the activity before the current illness or injury 88 Not attempted due to Medical conditions or safety concerns Transfers (B, C, W/C) (FIM): 3 Scootin Rollin Roll Left to Right (QC): 4 Supine to/from Sit: 3 (assist with both legs to get into and out of bed) Sit to/from Stand: 4 (skilled cues for sequencing. ) Sit to Lying (QC): 3 Lying to Sitting/Side of Bed(Q: 3 Sit to Stand (QC): 4 Chair/Vdj-jw-Fnkno Xfer(QC): 4 Car Transfer (QC): 3 Slow with all tasks; cues for sequencing and safety Gait Does the Patient Walk?: Yes Mode of Locomotion: Walk Anticipated Mode of Locomotion: Walk Gait (FIM): 2 Walk 10 feet (QC): 4 Walk 50 ft with 2 Turns(QC): 4 Walk 150 ft (QC): 88 Walking 10ft/uneven surface-QC: 4 Gait Level of Assist: 4 Gait Persons Needed: 1 Gait Assistive Device: FWW Comments/Gait Description slow gait with step to pattern on the left; decreased WB through the left with use of FWW. Wheelchair Training Does the Pt Use a Wheelchair?: No Stairs Stairs (FIM): 2 #of Steps: 1 Level of Assist: 4 1 Step (curb) (QC): 4 4 Steps (QC): 88 Assistive Device: Walker 12 Steps (QC): 88 Balance Sitting Static: Good Sitting Dynamic: Good Standing Static: Fair Standing Dynamic: Fair Picking up an Object (QC): 88 Treatment Gait training in her room with turns and safety; bed mobilty training with focus on getting in and out of bed., Assessment/Needs Post fall that resulted in a left hip fracture that has been repaired with a hemiarthroplasty. She will benefit from skilled PT to address strength and balance deficits that impair gait and transfers. She lives at home alone and was indep at [facility] therefore the goal is to return home at a mod indep level. Rehab Potential: Good PT Short Term Goals Short Term Goals Time Frame: Dec 08, 2018 Transfers (B,C,W/C) (FIM): 5 Gait (FIM): 4 Distance (FIM): 3=150 ft Gait Assistive Device: FWW PT [place] Goals [place] Goals PT Prison Goals Time Frame: Dec 20, 2018 Transfers (B,C,W/C) (FIM): 6 Sit to Lying (QC): 6 Lying-Sitting on Side/Bed(QC): 6 Sit to Stand (QC): 6 Roll Left to Right (QC): 6 Chair/Liw-dk-Apizg Xfer(QC): 6 Car Transfer (QC): 6 Does the Patient Walk: Yes Gait (FIM): 6 Gait distance (FIM): 3=150 ft Walk 10 feet (QC): 6 Walk 10ft-Uneven Surface(QC): 6 Walk 50ft with 2 Turns (QC): 6 Walk 150 ft (QC): 6 Gait Assistive Device: FWW Does the Pt use WC or Scooter?: No Stairs (FIM): 5 # of Steps: 4 1 Step (curb) (QC): 6 4 Steps (QC): 6 12 Steps (QC): 88 Stairs Level Of Assist: 6 Picking up an Object (QC): 88 PT Plan Problem List Problem List: Activity Tolerance, Functional Strength, Safety, Balance, Gait, Transfer, Bed Mobility Treatment/Plan Treatment Plan: Continue Plan of Care Treatment Plan: Bed Mobility, Education, Functional Activity Jennifer, Functional Strength, Group Therapy, Gait, Safety, Therapeutic Exercise, Transfers Treatment Duration: Dec 20, 2018 Frequency: At least 5 of 7 days/Wk (IRF) Estimated Hrs Per Day: 1.5 hours per day Patient and/or Family Agrees t: Yes Safety Risks/Education Patient Education: Transfer Techniques, Safety Issues Teaching Recipient: Patient Teaching Methods: Demonstration, Discussion Response to Teaching: Reinforcement Needed Discharge Recommendations Therapy D/C Recommendations: Physical Therapy Home Care Time/GCodes Time In: 1015 Time Out: 1100 Total Billed Treatment Time: 45 Total Billed Treatment visit EVM 15 FA 30 JAMIE FERNANDES PT Dec 03, 2018 11:07
[~2018-12-03 11:27] MED LIST changes: +ASPI325T32 PO; +HYDR-3820 PO; +PRED5DRO24 OU; +SENN-20 PO; +[UNRECOGNIZED DRUG - OTHER] OU
--- OUTSIDE RECORDS SUMMARY | 2018-12-03 11:29 | XMS REPORT | Continuity of Care Document ---
Author Author [facility] Organization [facility] Address Unknown Phone Unavailable Allergies Active Description Code Type Severity Reaction Onset Reported/Identified Relationship to Patient Clinical Status Yes SULFA SULFA Mild N /A 08/03/2010 Yes lactose [id number] Drug Allergy Unknown N/A 12/02/2018 Yes Sulfa (Sulfonamide Antibiotics) [id number] Drug Allergy Unknown N/A 2018 Medications There is no data. Problems Date [...] Ot 733.00 OSTEOPOROSIS NOS 11/30/2018 Ot V76.12 OTH SCREEN MAMMO-MALIGN NEOPLASM OF [place] 12/01/2018 Ot 733.00 OSTEOPOROSIS NOS 12/01/2018 Ot V76.12 OTH SCREEN MAMMO-MALIGN NEOPLASM OF [place] Procedures There [...] g/dL 3.2-4.5 CALCIUM CORRECTED 9.3 mg/dL 8.5-10.1 [id number] - 11/30/18 13:50 [id number] SPECIMEN AVAILABLE NRG Blood manual differential performed [...] urinalysis with reflex to culture YES NRG Bacterial urine culture - 11/30/18 14:45 Bacterial urine culture NG NRG Automated blood complete blood count (hemogram) [...] - 12/01/18 08:37 Magnesium 1.8 mg/dL 1.8-2.4 Automated blood complete blood count (hemogram) panel - 12/02/18 04:30 Blood leukocytes automated count (number/volume) 9.5 10*3/uL 4.3-11.0 Blood erythrocytes automated count (number/volume) 3.29 10*6/uL 4.35-5.85 Venous blood hemoglobin measurement (mass/volume) 10.5 g/dL 11.5-16.0 Blood hematocrit (volume fraction) 32 % 35-52 Automated erythrocyte mean corpuscular volume 98 [foz_us] 80-99 Automated erythrocyte mean corpuscular hemoglobin (mass per erythrocyte) 32 pg 25-34 Automated erythrocyte mean corpuscular hemoglobin concentration measurement ( mass/volume) 33 g/dL 32-36 Automated erythrocyte distribution width ratio 12.6 % 10.0-14.5 Automated blood platelet count (count/volume) 178 10*3/uL 130-400 Automated blood platelet mean volume measurement 10.4 [foz_us] 7.4-10.4 Whole blood basic metabolic panel - 12/02/18 04:30 Serum or plasma sodium measurement (moles/volume) 135 mmol/L 135-145 Serum or plasma potassium measurement (moles/volume) 3.4 mmol/L 3.6-5.0 Serum or plasma chloride measurement (moles/volume) 104 mmol/L 98-107 Carbon dioxide 22 mmol/L 21-32 Serum or plasma anion gap determination (moles/volume) 9 mmol/L 5-14 Serum or plasma urea nitrogen measurement (mass/volume) 13 mg/dL 7-18 Serum or plasma creatinine measurement (mass/volume) 0.71 mg/dL 0.60-1.30 Serum or plasma urea nitrogen/creatinine mass ratio 18 NRG Serum or plasma creatinine measurement with calculation of estimated glomerular filtration rate > NRG Serum or plasma glucose measurement (mass/volume) 118 mg/dL 70-105 Serum or plasma calcium measurement (mass/volume) 8.5 mg/dL 8.5-10.1 Encounters ACCT No. Visit Date/Time Discharge Status Pt. Type Provider Facility Loc./Unit Complaint [id number] 12/01/2018 09:24:00 12/03/2018 10:15:00 DIS Inpatient MICHELLE COLLADO DO [facility] 4TH HIP FX [id number] 02/25/2013 11:17:00 02/25/2013 23:59:59 CLS Outpatient [id number] 12/03/2018 15:37:00 PEN Preadmit MARSHA MICHELLE LEFT HIP FRACTURE [id number] 11/01/2014 14:08:00 Document Registration [id number] 08/29/2011 10:42:00 Document Registration [id number] 08/23/2010 10:10:00 Document Registration [id number] 08/03/2010 11:09:00 Document Registration [id number] 08/24/2009 13:13:00 Document Registration
--- OUTSIDE RECORDS SUMMARY | 2018-12-03 11:29 | XMS REPORT | Clinical Summary ---
Author Author [facility] Organization [facility] Address Unknown Phone Unavailable Care Team Providers Care Speech Scientist Name Role Phone PCP Unavailable Allergies Not [...]
[2018-12-03 11:52] VITALS: BP 151/77
[2018-12-03] MEDS ORDERED: ONDANSETRON 4 MG/2 ML (SDV) Z0FRAN IVP PRN (12:15)
[2018-12-03] MEDS ORDERED: LACTATED RINGERS 1,000 ML IV SCH (12:15)
[2018-12-03] MEDS ORDERED: ALPRAZolam 0.25 MG (XANAX) TAB PO PRN (12:15)
[2018-12-03] MEDS ORDERED: ONDANSETRON 4 MG (ZOFRAN) ORAL DISSOLVE TAB PO PRN (12:15)
[2018-12-03] MEDS ORDERED: MELATONIN 3 MG TABLET PO PRN (12:15)
[2018-12-03] MEDS ORDERED: BISACODYL 10 MG SUPP (DULCOLAX) PR PRN (12:15)
[2018-12-03] MEDS ORDERED: POLYETHYLENE GLYCOL 17 GM (MIRALAX) PACK PO PRN (12:15)
[2018-12-03] MEDS ORDERED: ACETAMINOPHEN 500 MG TAB (TYLENOL) PO PRN (12:15)
[2018-12-03] MEDS ORDERED: DOCUSATE SODIUM 100 MG (COLACE) CAP PO PRN (12:15)
[2018-12-03] MEDS ORDERED: diphenhydrAMINE 50 MG/ML INJ (BENADRYL) IV PRN (12:15)
[2018-12-03] MEDS ORDERED: CALCIUM CARBONATE 500 MG (TUMS) TAB.CHEW PO PRN (12:15)
--- NOTE | 2018-12-03 13:12 | ST Cognitive Linguistic Eval ---
Speech Evaluation-General Medical Diagnosis left hip fx Onset Date: Nov 30, 2018 Therapy Diagnosis Therapy Diagnosis: Cognitive-Communication Precautions Precautions/Isolations: Standard Precautions Referral Referring Physician: Dr. Henriquez Medical History Reviewed History: Yes Social History Current Living Status: Alone Speech PLF-Current Status Prior Level of Function Patient lived alone and was independent for all of her daily needs. Subjective Patient was pleasant and attentive during the cognitive evaluation. Language Eval: Auditory Comprehends Simple Yes/No Ques: Functional Indent/Objects Multiple Velazquez: Functional Ident/Pics in Multiple Velazquez: Functional Follows 1-Step Commands: Functional Follows Complex Directions: Functional Follows General Conversations: Functional Language Eval: Verbal Language Completes Spontaneous Greeting: Functional Produces Auto, Serial Info: Functional Imitates Simple Words/Phrases: Functional Word Finding: Functional Requests Basic Needs: Functional States Basic Personal Info: Functional Expresses Complex Ideas: Functional Objective Cognitive Domain Memory: WNL Problem Solving: Functional Executive Functions: WNL Visuospatial Skills: WNL Clock Drawing Severity Rating: WNL Objective Formal/Standardized Tests Isidoro Cognitive Assessment (MOCA) Results Visuospatial/Executive: 5/5, Namin/3, Memory: Immediate 5/5, Delayed 5/5, Attention: 6/6, Language: 2/2, Orientation: 6/6 Oral Motor/Speech Production Within functional limits Impression Patient is a pleasant 88 year old woman who was admitted to the ARU for rehab s/ p fractured hip. The patient was given the MOCA for cognitive function. She tested within normal range for all areas of cognition. The patient does not require skilled ST services at this time. Communication/Social Cognition Comprehension: 7 Expression: 7 Social Interaction: 7 Problem Solvin Memory: 7 Speech Patient Assess Expression of Ideas/Wants: Expression (4) Understanding Verbal Content: Understands (4) Brief Interview-Mental Status: Yes Repetition of Three Words: Three (3) Temporal Orientation: Year: Correct (3) Temporal Orientation: Month: Accurate within 5 days(2) Temporal Orientation: Day: Correct (1) Recall : Wear to say "Sock": Yes, no cue required (2) Recall : Color: Yes, no cue required (2) Recall : Bed: Yes, no cue required (2) Memory/Recall Ability: Current season, That he or she is in a hsp/hsp unit Speech-Plan Patient/Family Goals Patient/Family Goals: The patient plans to return home with family support post rehab. Treatment Plan Speech Therapy Treatment Plan: Discontinue ST The patient does not require skilled ST services at this time. Treatment Duration: Dec 03, 2018 Frequency: 1 time per week Estimated Hrs Per Day: .25 hour per day Rehab Potential: Good Barriers to Learning: None identified Pt/Family Agrees to Plan: Yes Safety Risks/Education Teaching Recipient: Patient, Family Teaching Methods: Discussion Response to Teaching: Verbalize Understanding Education Topics Provided: Safety within her room. Time Speech Therapy Time In: 12:30 Speech Therapy Time Out: 12:45 Total Billed Time: 15 Billed Treatment Time 1, SPSNDCOMYOANNA Foster Dec 03, 2018 13:12
[2018-12-03] MEDS: HYDROcodone/APAP 10 MG/325 MG (LORTAB) TAB PO PRN ×3 (13:23→22:48)
--- NOTE | 2018-12-03 13:34 | Occupational Therapy Eval ---
OT Evaluation-General/PLF Medical Diagnosis Admission Date Dec 03, 2018 at 11:27 Medical Diagnosis: left hip fx Onset Date: Nov 30, 2018 Therapy Diagnosis Therapy Diagnosis: impaired self care skills Height/Weight Height (Feet): 5 Height (Inches): 4.00 Weight (Pounds): 117 Weight (Ounces): 0.7 Precautions Precautions/Isolations: Standard Precautions Referral Physician: Martinez Medical History Additional Medical History cornea transplant Current History Pt had fall resulting in left hip fracture. Now s/p hemiarthroplasty Reviewed History: Yes Social History Home: Multilevel (basement, washer and dryer in basement) Current Living Status: Alone Entry Into Home: Stairs With Railing Steps Into Home: 3 Steps Inside Home: 12 ADL-Prior Level of Function Therapy Code Descriptions/Definitions Functional [place] Measure: 0=Not Assessed/NA 4=Minimal Assistance 1=Total Assistance 5=Supervision or Setup 2=Maximal Assistance 6=Modified [place] 3=Moderate Assistance 7=Complete [place] Therapy Quality Codes: 6 Independent with activity with or without an assistive device 5 Patient requires set up or clean up by helper. Patient completes activity by themselves 4 Supervision or touching assist (CGA). [place] provide cues , steadying assist 3 The helper provides less than half the effort to complete the activity 2 The helper provides more than half the effort to complete the activity 1 Dependent. The helper does all the effort to complete an activity 7 Patient refused to complete or attempt activity 9 The patient did not perform the activity before the current illness or injury 88 Not attempted due to Medical conditions or safety concerns Functional Abilities and Goals: Independent: Patient completed the activities by him/herself, with or without an assistive device, with no assistance from a helper. Needed Some Help: Patient needed partial assistance from another person to complete activities. Dependent: A helper completed the activities for the patient. Unknown: Not Applicable: ADL PLOF Comments Pt reports being independent with basic self care and mobility. Cooks and cleans. Does own laundry which is in the basement. Drives short distances Self Care: Independent DME/Equipment: Shower (has a walk in shower, but it is in the basement), Tub OT Current Status Subjective Pt sitting in chair, agrees to therapy. Pt reports pain with movement, but does not rate. Mental Status/Objective Patient Orientation: Person, Place, Situation Current Glasses/Contacts: Yes Hearing Aids: No Dentures/Partials: No Hand Dominance: Right Upper Extremity ROM Grossly WFL Upper Extremity Coordination Intact Upper Extremity Sensation Intact per pt report ADL-Treatment ADL-Current Pt completed sponge bath while seated. Upper body bathing completed with SBA. Pt able to wash bilateral upper legs and surekha area. Assist required for lower legs secondary to hip precautions. Don button up shirt with SBA. Pt required max assist for lower body dressing, will need adaptive equipment secondary to precautions. Pt instructed in use of adaptive equipment. Pt able to don socks with minimal assistance using sock aid. Donned pants with mod assist using mine engineer to start pants over feet. Stood with minimal assistance for balance during pant hike. Pt combed hair with set up. States she has already brushed teeth with set up this morning. Sit to stand with minimal assistance. Pt demonstrated ability to transfer to toilet with minimal assistance and skilled cues for safety using FWW. Pt sitting in chair with needs met after session. Eating (FIM): 5 (Pt reports feeding self after set up) Eating (QC): 5 Grooming (FIM): 5 Oral Hygiene (QC): 5 Bathing (FIM): 3 Shower/Bathe Self (QC): 3 Upper Body Dressing (FIM): 5 Upper Body Dressing (QC): 4 Lower Body Dressing (FIM): 2 Lower Body Dressing (QC): 2 Toilet/Commode Transfer (FIM): 4 Toilet Transfer (QC): 3 Education OT Patient Education: Modified ADL techniques, Rehab process Teaching Recipient: Patient Teaching Methods: Discussion Response to Teaching: Verbalize Understanding OT Short Term Goals Short Term Goals Time Frame: Dec 10, 2018 Bathing(FIM): 4 Lower Body Dressing(FIM): 4 Toileting(FIM): 4 Toilet/Commode Transfer(FIM): 5 Additional Short Term Goals: 1-Demonstrate ADL Tasks, 2-Verbalize Understanding , 3-ImproveStrength/Jennifer 1=Demonstrate adherence to instructed precautions during ADL tasks. 2=Patient will verbalize/demonstrate understanding of assistive devices/ modifications for ADL. 3=Patient will improve strength/tolerance for activity to enable patient to perform ADL's. OT Bilingual Legal Assistant Goals Bilingual Legal Assistant Goals Time Frame: Dec 24, 2018 Eating (FIM): 6 Eating (QC): 6 Groomin Oral Hygiene (QC): 6 Bathing(FIM): 5 Shower/Bathe Self (QC): 5 Upper Body Dressing(FIM): 6 Upper Body Dressing (QC): 6 Lower Body Dressing(FIM): 5 Lower Body Dressing (QC): 5 On/Off Footwear (QC): 6 Toileting(FIM): 6 Toileting Hygiene (QC): 6 Toilet/Commode Transfer(FIM): 6 Toilet/Commode Transfer (QC): 6 Shower Transfer(FIM): 5 Additional Goals: 1-Demonstrate ADL Tasks, 2-Verbalize Understanding, 3- ImproveStrength/Jennifer 1=Demonstrate adherence to instructed precautions during ADL tasks. 2=Patient will verbalize/demonstrate understanding of assistive devices/ modifications for ADL. 3=Patient will improve strength/tolerance for activity to enable patient to perform ADL's. goals established to promote increased functional performance and allow safe discharge. OT Education/Plan Problem List/Assessment Assessment: Decreased Activ Tolerance, Decreased UE Strength, Dependent Transfers, Impaired I ADL's, Impaired Self-Care Skills Pt had a fall resulting in left hip fracture, now s/p hemiarthroplasty. Pt demonstrates decreased mobility, ADL functioning, strength, and activity tolerance. Pt to benefit from skilled OT intervention for ADL training, transfers, strengthening, adaptive equipment training, and education to maximize level of function and allow safe discharge home. Discharge Recommendations Plan/Recommendations: Continue POC Treatment Plan/Plan of Care Treatment,Training & Education: Yes Patient would benefit from OT for education, treatment and training to promote independence in ADL's, mobility, safety and/or upper extremity function for ADL' s. Plan of Care: ADL Retraining, Functional Mobility, Group Exercise/Act as Ind, UE Funct Exercise/Act Treatment Duration: Dec 24, 2018 Frequency: At least 5 of 7 days/Wk (IRF) Estimated Hrs Per Day: 1.5 hours per day Rehab Potential: Good Time/GCodes Start Time: 11:00 Stop Time: 12:00 Total Time Billed (hr/min): 60 Billed Treatment Time 1 visit, EVM(15minutes), ADLx3(45minutes) LIANG MARIANO OT Dec 03, 2018 13:34
--- NOTE | 2018-12-03 13:58 | NUR ---
ROOF PANEL HANGER met with patient and daughter, Melissa to complete initial assessment. Patient was alert and oriented x4 and agreeable to assessment; however, experiencing pain; therefore, ROOF PANEL HANGER kept assessment brief. Patient admitted to ARU from internally following left hip fracture (Surgery performed by Dr. Hartley). Prior to fracture patient reports independence with ambulation and ADLs, with occasional use of a hurry cane. Patient resides alone in a one-level home in [place], [place]. The home has five steps at the entrance with hand rails and a basement, which is highly utilized for access to laundry. Patient is eager to regain independence and return home. Patient identifies daughter, Melissa (of [place]) at [phone] and son, Krish (of [place]) at [phone] as primary contacts. Melissa works for time study technician days; however, schedule is flexible. Nguyễn schedule is also flexible. Insurance verified as Medicare in all severity lice with no prescription coverage and preferred pharmacy as [facility]. PCP identified as Dr. Messer. ROOF PANEL HANGER reviewed typical rehab length of stay and weekly team conferences with patient, she expressed no concerns. ROOF PANEL HANGER will follow for appropriate discharge needs.
--- NOTE | 2018-12-03 15:10 | Therapy Group Daily Note ---
Therapy Daily Group Note Patient Education Topic Other List Below (TRF techniques and safety) Exercises LE Seated Exercise, UE Exercise Session Ratio (pt:therapist): 4:1 Goal of Session: Home Safety Strategies, UE/LE Strengthing, Safety with Transfers Pt. to lead others in seated exercise group session by reading and demonstrating exercises utilizing written illustrated guide. Pts. to gain understanding of various transfer techniques and safety Goal Met for this Session: Yes Pt Benefit of Group: Contributions to Others, Increased Functional Safety, Increased Functional Strength, Socialization socialization, group interactions, TRF skill education for bed, car, chair etc Other/Notes pt. required min to mod assist chair to w/c etc. Start Time: 13:00 Stop Time: 14:20 Total Billed Treatment Time: 80 Total Billed Treatment 1,GRP JUAN KIRKLAND RODDING MACHINE TENDER Dec 03, 2018 15:10
[2018-12-03 15:39] VITALS: BP 145/73
--- NOTE | 2018-12-03 16:19 | NUR ---
SAUSAGE INSPECTOR met with patient to complete initial assessment; however patient appeared confused and could not provide answers to assessment questions. 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 SAUSAGE INSPECTOR returned to patients room upon arrival of patient's daughters to complete assessment. Both daughters expressed concerns regarding cognitive status today as this appears to be a significant decline from yesterday. Per daughter's current cognition is worse than it has been throughout entire hospitalization. SAUSAGE INSPECTOR requested RN to review current medications to evaluate if change has occurred due to medication regimen. Upon review of medications, it was found that patient was not restarted on all necessary psych medications. SAUSAGE INSPECTOR obtained a up-to-date home medication list from patient's pharmacy at [facility] and provided update to RN. RN has corrected medications at this time. Due to a medication not being on formulary family intends to bring home medication for hospital use. Daughter's report patient resided alone in low income housing apartments in [place], [place]. The home is one level and key entry operator. Prior to CVA utilized a cane for mobility purposes; however, does possess a front-wheeled walker and power chair. Patient can complete most ADLs independently; however, required assistance for showering. Patient's daughter Mickey is a paid caregiver through [employer] for 26 hours per week. Primary contact identified as daughterMickey of [place] at [phone] and daughterHermelinda of [place] at [phone]. SAUSAGE INSPECTOR inquired about Mickey's ability to increase skill hours, if needed, Mickey is prepared to do so. Daughter's hope that with the increased skill hours and ARU, patient can return to her apartment. Insurance verified as Medicare and [employer] with [facility] prescription coverage. Patient's preferred pharmacy is [facility] as well as [facility]. PCP identified as Dr. Eloy Alonzo at [facility] and Drs. Pompa and Mindy for mental health services. Patient attends monthly visits with mental health professionals for counseling and medication management for bipolar diagnosis and seasonal depression. SAUSAGE INSPECTOR reviewed typical ARU length of stay and weekly team conference summary is with patient's daughters. They expressed no additional concerns other than current mental status. Dr. Henriquez has been made aware of cognitive decline. SAUSAGE INSPECTOR will continue to follow for additional needs. Addendum: 12/08/18 at 1148 by KELLY ALSTON Error-please disregard previous documentation on 12/03 at 1619. Assessment information documented on wrong patient
[2018-12-03] MEDS ORDERED: LACTASE PO PRN (16:30)
[2018-12-03] MEDS: SENNA W/DOCUSATE (SENOKOT S) TABLET PO SCH (21:32)
[2018-12-03] MEDS: guaiFENesin (MUCINEX) 600 MG TAB PO SCH (21:32)
[2018-12-04 05:20] VITALS: BP 132/77
[2018-12-04] MEDS: ASPIRIN E.C. 325 MG (ECOTRIN) TABLET PO SCH (08:21)
[2018-12-04] MEDS: guaiFENesin (MUCINEX) 600 MG TAB PO SCH ×2 (08:21→20:13)
[2018-12-04] MEDS: SENNA W/DOCUSATE (SENOKOT S) TABLET PO SCH ×2 (08:21→20:13)
[2018-12-04] MEDS: ENOXAPARIN 30 MG/0.3 ML (LOVENOX) SYR SC SCH (08:21)
[2018-12-04] MEDS: prednisoLONE 1% OPTH (PRED FORTE) 5 ML BTL OP SCH (08:23)
--- NOTE | 2018-12-04 08:26 | PM&R H&P / Post Admit Assess ---
History of Present Illness HPI/Chief Complaint CC: Debility following left hip fracture HPI: This is a healthy 88yoWF who presents to the IRF for intensive therapy after suffering a left hip fracture sustained in a fall at home and undergoing an uncomplicated hip fracture by Dr Hartley. Patient is healthy ordinarily and resides at home with family involvement and intends to return home at e completion of IRF protocol. Currently she reports the pain is controlled and labs and meds were reviewed and no major concerns identified. Cath was DC and bowels will be monitored since she had diarrhea prior to admit and that was the reason she was so weak and suffered a fall at home. Patient is participating with therapies on 4th floor and overall has no limitations for admit to IRF. Source: patient Exam Limitations: no limitations Date Seen 12/03/18 Time Seen by a Provider: 12:00 Attending Physician Gisela Henriquez DO PCP Barber Messer DO Referring Physician Date of Admission Dec 03, 2018 at 11:27 Home Medications & Allergies Home Medications Reviewed patient Home Medication Reconciliation performed by pharmacy medication reconciliations hvac service technician and/or nursing. Patients Allergies have been reviewed. Allergies Allergies Coded Allergies Sulfa (Sulfonamide Antibiotics) (Unverified Allergy, Unknown, 12/02/18) lactose (Verified Allergy, Unknown, 12/02/18) Past Cybrrir-Xcdrsi-Ecnbqu Hx Past Med/Social Hx: Reviewed Nursing Past Med/Soc Hx, Reviewed and Corrections made Patient Social History Marrital Status: Employed/Student: retired Alcohol Use: Denies Use Recreational Drug Use: No Smoking Status: Never a Smoker 2nd Hand Smoke Exposure: No Physical Abuse Screen: No Sexual Abuse: No Recent Foreign Travel: No Contact w/other who traveled: No Recent Hopitalizations: Yes Recent Infectious Disease Expo: No Immunizations Up To Date Date of Pneumonia Vaccine: Dec 04, 2017 Date of Influenza Vaccine: Jun 02, 2018 Seasonal Allergies Seasonal Allergies: Yes Past Medical History Surgeries: Eye Surgery, Orthopedic : No Sexually Transmitted Disease: No HIV/AIDS: No Female Reproductive Disorders: Denies Gastrointestinal: Colitis, Hemorrhoids, Chronic Diarrhea, Polyps, Irritable Bowel Musculoskeletal: Arthritis, Back Injury, Chronic Back Pain, Fractures Loss of Vision: Denies Hearing Impairment: Denies History of Blood Disorders: No Family History Patient reports no known family medical history. Review of Systems Constitutional: see HPI EENTM: no symptoms reported Respiratory: no symptoms reported Cardiovascular: no symptoms reported Gastrointestinal: constipation, diarrhea Genitourinary: no symptoms reported Musculoskeletal: joint pain Skin: no symptoms reported Psychiatric/Neurological: No Symptoms Reported All Other Systems Reviewed Negative Unless Noted: Yes Physical Exam Exam Vital Signs Vital Signs Date Time Temp Pulse Resp B/P (MAP) Pulse Ox O2 Delivery O2 Flow Rate FiO2 12/04/18 05:20 97.8 97 16 132/77 (95) 93 Room Air Capillary Refill : General Appearance: No Apparent Distress, WD/WN, Chronically ill, Thin, Other ( frail) HEENT: PERRL/EOMI, Normal ENT Inspection, Pharynx Normal, Moist Mucous Membranes Neck: Full Range of Motion, Normal Inspection, Non Tender, Supple Respiratory: Chest Non Tender, Lungs Clear, Normal Breath Sounds, No Accessory Muscle Use, No Respiratory Distress Cardiovascular: Regular Rate, Rhythm, No Edema, No Gallop, No JVD, No Murmur Gastrointestinal: Normal Bowel Sounds, No Organomegaly, No Pulsatile Mass, Non Tender, Soft Back: Normal Inspection, No CVA Tenderness, No Vertebral Tenderness Extremity: Normal Capillary Refill, Normal Inspection, Normal Range of Motion ( except left leg), Non Tender, No Calf Tenderness, No Pedal Edema Neurologic/Psychiatric: Alert, Oriented x3, No Motor/Sensory Deficits, Normal Mood/Affect Skin: Normal Color, Warm/Dry Lymphatic: No Adenopathy Results Results/Procedures Labs Patient resulted labs reviewed. Assessment/Plan Assessment and Plan Assess & Plan/Chief Complaint Assessment: Debility following a left femoral neck fracture Fall at home s/p dehydration from diarrhea Corneal transplant in the past Post op anemia Plan: Monitor labs Home meds Lovenox IRF (1) Hip fracture (2) Advanced age (3) Anemia due to acute blood loss (4) Corneal transplant status Post Admission Physician Asses Date seen by provider: Dec 03, 2018 Time seen by provider: 12:00 The preadmission screen agrees with the post admission assessment that the patient is a good candidate for inpatient rehabilitation. The patient will have a comprehensive program of inpatient rehabilitation with a goal of maximizing level of functional independence prior to discharge home with family. The patient will have PT/OT ninety minutes per day, each discipline, five days a week for gait, strengthening, conditioning, balance, ADLs, any patient/family/caregiver training as necessary. Speech therapy to do cognitive assessment and treat as indicated. Rehabilitation nursing to assist with bowel, bladder, skin, wound care, medication administration, pain management. Restorative Aide to assist with discharge planning, community reentry. SCD's for DVT prophylaxis. She appears to be well motivated to participate in three hours of therapy a day. She should be able to tolerate three hours of therapy a day from a medical standpoint. She should benefit from the three hours of therapy a day. She has a reasonable discharge plan, reasonable discharge rehabilitation goals and a supportive family. She has various comorbidities that need to be closely monitored with medications and treatments adjusted on a daily basis as needed. These include: Barriers to discharge for this patient who had been independent prior to this are for her to be modified independent to supervision for ADLs and mobility skills prior to discharge home with [family], so as to lessen the burden of the caregivers. Risks for this patient include: 1. Fall 2. Fracture 3. DVT 4. Pulmonary embolism 5. Wound infection 6. Skin breakdown 7. Contractures 8. Poorly controlled pain 9. Urinary retention 10. UTI 11. Respiratory infection 12. Aspiration Estimated Length of Stay: 10 days Prognosis: Rehab prognosis appears good for goal of discharge home with family modified independent to supervision for ADLs and mobility skills. General: Alert, Oriented X3, Cooperative, No Acute Distress HEENT: Atraumatic, PERRLA Neck: Supple, No JVD, No Thyromegaly, +2 Carotid Pulse No Bruit, No LAD Lungs: Clear to Auscultation, Normal Air Movement Heart: Regular Rate, Normal S1, Normal S2, No Murmurs Abdomen: Normal Bowel Sounds, Soft, No Tenderness, No Hepatosplenomegaly, No Masses Extremities: No Clubbing, No Cyanosis, No Edema, Normal Pulses, No Tenderness/ Swelling Skin: No Rashes, No Breakdown, No Significant Lesion Neuro: Normal Gait (limping gait), Normal Speech, Strength at 5/5 X4 Ext ( except left leg), Normal Tone, Sensation Intact, Cranial Nerves 3-12 NL, Reflexes 2+ Psych/Mental Status: Mental Status NL, Mood NL GISELA HENRIQUEZ DO Dec 04, 2018 08:26
--- NOTE | 2018-12-04 08:31 | Individualized Plan of Care ---
Individualized Plan of Care Rehab Nursing IPOC Order Admission Date Dec 03, 2018 at 11:27 Current Orders Orders Admission Arrival Bed Request (12/03/18 10:15) General/Regular (12/03/18 Lunch) Sequential Compression Device (12/03/18 12:10) Pio Hose (12/03/18 12:10) General/Regular (12/03/18 Dinner) Aspirin Enteric Coated Tablet (Ecotrin T (12/04/18 09:00) Baclofen Tablet (Lioresal Tablet) (12/03/18 12:15) Diphenhydramine Injection (Benadryl Inje (12/03/18 12:15) Bisacodyl Suppository (Dulcolax Supposit (12/03/18 12:15) Enoxaparin Injection (Lovenox Injection) (12/04/18 09:00) Lactated Ringers (Lr 1000 Ml Iv Solution (12/03/18 12:15) Hydrocodone/Apap 10/325 Tablet (Lortab 1 (12/03/18 12:15) Senna S Tablet (Senokot S Tablet) (12/03/18 21:00) Tramadol Tablet (Ultram Tablet) (12/03/18 12:15) Ondansetron Injection (Zofran Injectio (12/03/18 12:15) Guaifenesin Tablet (Mucinex Tablet) (12/03/18 21:00) Prednisolone 1% Ophthalmic Elen (Pred For (12/04/18 09:00) Incentive Spirometry Initial (12/03/18 12:10) Incentive Spirometry (Nursing) Q2H (12/03/18 12:10) Admission Order(Inpt,Obs,Sdc) (12/03/18 12:10) Vital Signs: Routine (Order) 08,16,00 (12/03/18 12:10) Powderer-Inpt Rehab Con (12/03/18 12:10) Rehab Nursing Orders-Ipoc (12/03/18 12:10) Physical Therapy Rehab Orders (12/03/18 12:10) Occupational Therapy Rehab Ord (12/03/18 12:10) Speech Therapy Rehab Orders (12/03/18 12:10) Intake & Output 06,14, (12/03/18 12:10) Weight Bearing Status (12/03/18 12:10) Precautions (Aru) (12/03/18 12:10) Weekly Weight (Lbs) WEEK (12/03/18 12:10) Rehab-Intensity Of Therapy (12/03/18 12:10) Code/Resuscitation (12/03/18 12:10) Initiate Admission Nursing Pro .admission (12/03/18 12:10) Acetaminophen Tablet (Tylenol Tablet) (12/03/18 12:15) Alprazolam Tablet (Xanax Tablet) (12/03/18 12:15) Calcium Carbonate Chew Tablet (Antacid C (12/03/18 12:15) Docusate Sodium Capsule (Colace Capsule) (12/03/18 12:15) Melatonin Tablet (Melatonin Tablet) (12/03/18 12:15) Polyethylene Glycol Powder Pkt (Miralax (12/03/18 12:15) Ondansetron Oral Dissolve Tab (Zofran (12/03/18 12:15) Patient Visit (12/03/18 ) Pt Tana Moderate Complexity (12/03/18 ) Functional Activities, Ea 15 (12/03/18 ) Patient Visit (12/03/18 ) Speech Sound Lang Comp (12/03/18 ) Patient Visit (12/03/18 ) Therapeutic, Group (12/03/18 ) (Nf) Lactose Enzyme/Dietary Supplement (12/03/18 16:30) Patient Visit (12/04/18 ) Gait Training, Ea 15 Min (12/04/18 ) Exercise Therap, Ea 15 Min (12/04/18 ) Rehab Nursing Orders: Ongoing Assess. of Function Status Intensity of Therapy to be met Patient to be seen: Min.3h per day/5 of 7d PT IPOC Problem List: Activity Tolerance, Functional Strength, Safety, Balance, Gait, Transfer, Bed Mobility Treatment Plan: Continue Plan of Care Bed Mobility, Education, Functional Activity Jennifer, Functional Strength, Group Therapy, Gait, Safety, Therapeutic Exercise, Transfers Treatment Duration: Dec 20, 2018 Frequency: At least 5 of 7 days/Wk (IRF) Estimated Hrs Per Day: 1.5 hours per day OT IPOC Problems: Decreased Activ Tolerance, Decreased UE Strength, Dependent Transfers , Impaired I ADL's, Impaired Self-Care Skills OT Treatment, Training and Edu: Yes OT Problems Pt had a fall resulting in left hip fracture, now s/p hemiarthroplasty. Pt demonstrates decreased mobility, ADL functioning, strength, and activity tolerance. Pt to benefit from skilled OT intervention for ADL training, transfers, strengthening, adaptive equipment training, and education to maximize level of function and allow safe discharge home. Plan of Care: ADL Retraining, Functional Mobility, Group Exercise/Act as Ind, UE Funct Exercise/Act Treatment Duration: Dec 24, 2018 Frequency: At least 5 of 7 days/Wk (IRF) Estimated Hrs Per Day: 1.[address] IPOC Speech Therapy Treatment Plan: Discontinue ST Treatment Duration: Dec 03, 2018 Frequency: 1 time per week Estimated Hrs Per Day: .25 hour per day Powderer/Case Mgmt Powderer/Case Managemen: Discharge Planning Dietitian/Garnisher Dietitian/Garnisher to monitor nutritional status and make changes and/or recommendations as needed and work with speech pathology on dietary upgrades as the occur. Physician IPOC Medical Issues being managed closely and that require the 24 hour availability of a physician: Monitor severe left leg pain and constipation and BP monitoring will require close contact with physician Medical Issues: Bowel/Bladder Function, DVT Prophylaxis, Falls Precautions, Fluid/Electrolyte/Nutrition Balance, Pain Management Brief Synthesis of Preadmission Screen, Post-Admission Evaluation, and Therapy Evaluations: PT/OT will work with patient to improve gait and return to independent living alone Medical Prognosis: Good Anticipated Length of Stay: 7 days MICHELLE LARSON DO Dec 04, 2018 08:30
--- NOTE | 2018-12-04 09:26 | Physical Therapy Daily Note ---
PT Daily Note-Current Subjective Pt sitting at EOB upon arrival. Pt agrees to PT. Pain Numeric Pain Scale: 8 Location: Left Location Body Site: Hip Pain Description: Ache Mental Status Patient Orientation: Person, Place, Situation Transfers Therapy Code Descriptions/Definitions Functional [place] Measure: 0=Not Assessed/NA 4=Minimal Assistance 1=Total Assistance 5=Supervision or Setup 2=Maximal Assistance 6=Modified [place] 3=Moderate Assistance 7=Complete [place] Therapy Quality Codes: 6 Independent with activity with or without an assistive device 5 Patient requires set up or clean up by helper. Patient completes activity by themselves 4 Supervision or touching assist (CGA). [place] provide cues , steadying assist 3 The helper provides less than half the effort to complete the activity 2 The helper provides more than half the effort to complete the activity 1 Dependent. The helper does all the effort to complete an activity 7 Patient refused to complete or attempt activity 9 The patient did not perform the activity before the current illness or injury 88 Not attempted due to Medical conditions or safety concerns Sit to/from Stand: 5 Weight Bearing Right Lower Extremity: Right Full Weight Bearing Left Lower Extremity: Left Weight Bearing/Tolerated THR precautions Gait Training Does the Patient Walk?: Yes Distance (FIM): 3=150 ft Distance: 150' Walk 10 feet (QC): 5 Walk 50 ft with 2 Turns(QC): 5 Walk 150 ft (QC): 5 Gait Level of Assist: 5 Gait Persons Needed: 1 Gait Assistive Device: FWW Pt walks with slow antalgic gait pattern. Wheelchair Training Does the Pt Use a Wheelchair?: No Exercises Seated Therapy Exercises: Ankle pumps, Long arc quads, Hip flexion, Kicking activity Seated Reps: 15 Treatments Pt transfers from EOB to standing then ambualtes in hallway. Pt sits in chair and completes Seated EX before returning to room to rest Supine in bed with HOB raised. Pt has all needs met. Assessment Current Status: Good Progress Pt continues to push self to improve. PT Short Term Goals Short Term Goals Time Frame: Dec 08, 2018 Gait (FIM): 4 Distance (FIM): 3=150 ft Gait Assistive Device: FWW PT Hide And Skin Colerer Goals Jail Goals PT Hide And Skin Colerer Goals Time Frame: Dec 20, 2018 Transfers (B,C,W/C) (FIM): 6 Sit to Lying (QC): 6 Lying-Sitting on Side/Bed(QC): 6 Sit to Stand (QC): 6 Rollin Roll Left to Right (QC): 6 Chair/Yck-zx-Vhnvs Xfer(QC): 6 Car Transfer (QC): 6 Does the Patient Walk: Yes Gait (FIM): 6 Gait distance (FIM): 3=150 ft Walk 10 feet (QC): 6 Walk 10ft-Uneven Surface(QC): 6 Walk 50ft with 2 Turns (QC): 6 Walk 150 ft (QC): 6 Gait Assistive Device: FWW Does the Pt use WC or Scooter?: No Stairs (FIM): 5 # of Steps: 4 1 Step (curb) (QC): 6 4 Steps (QC): 6 12 Steps (QC): 88 Stairs Level Of Assist: 6 Picking up an Object (QC): 88 PT Plan Problem List Problem List: Activity Tolerance, Functional Strength, Gait Treatment/Plan Treatment Plan: Continue Plan of Care Treatment Plan: Bed Mobility, Education, Functional Activity Jennifer, Functional Strength, Group Therapy, Gait, Safety, Therapeutic Exercise, Transfers Treatment Duration: Dec 20, 2018 Frequency: At least 5 of 7 days/Wk (IRF) Estimated Hrs Per Day: 1.5 hours per day Patient and/or Family Agrees t: Yes Safety Risks/Education Patient Education: Gait Training, Transfer Techniques, Correct Positioning, Safety Issues Teaching Recipient: Patient Teaching Methods: Discussion Response to Teaching: Verbalize Understanding Time/GCodes Time In: 730 Time Out: 755 Total Billed Treatment Time: 25 Total Billed Treatment 1, GT (15m) & EX (10m) G Codes Necessary: MELISSA Ortega PTA Dec 04, 2018 09:26
[2018-12-04] MEDS: HYDROcodone/APAP 10 MG/325 MG (LORTAB) TAB PO PRN ×3 (10:30→21:27)
--- NOTE | 2018-12-04 11:07 | Individualized Plan of Care ---
Individualized Plan of Care Rehab Nursing IPOC Order Admission Date Dec 03, 2018 at 11:27 Current Orders Orders Admission Arrival Bed Request (12/03/18 10:15) General/Regular (12/03/18 Lunch) Sequential Compression Device (12/03/18 12:10) Pio Hose (12/03/18 12:10) General/Regular (12/03/18 Dinner) Aspirin Enteric Coated Tablet (Ecotrin T (12/04/18 09:00) Baclofen Tablet (Lioresal Tablet) (12/03/18 12:15) Diphenhydramine Injection (Benadryl Inje (12/03/18 12:15) Bisacodyl Suppository (Dulcolax Supposit (12/03/18 12:15) Enoxaparin Injection (Lovenox Injection) (12/04/18 09:00) Lactated Ringers (Lr 1000 Ml Iv Solution (12/03/18 12:15) Hydrocodone/Apap 10/325 Tablet (Lortab 1 (12/03/18 12:15) Senna S Tablet (Senokot S Tablet) (12/03/18 21:00) Tramadol Tablet (Ultram Tablet) (12/03/18 12:15) Ondansetron Injection (Zofran Injectio (12/03/18 12:15) Guaifenesin Tablet (Mucinex Tablet) (12/03/18 21:00) Prednisolone 1% Ophthalmic Elen (Pred For (12/04/18 09:00) Incentive Spirometry Initial (12/03/18 12:10) Incentive Spirometry (Nursing) Q2H (12/03/18 12:10) Admission Order(Inpt,Obs,Sdc) (12/03/18 12:10) Vital Signs: Routine (Order) 08,16,00 (12/03/18 12:10) Low Emission Automobile Designer-Inpt Rehab Con (12/03/18 12:10) Rehab Nursing Orders-Ipoc (12/03/18 12:10) Physical Therapy Rehab Orders (12/03/18 12:10) Occupational Therapy Rehab Ord (12/03/18 12:10) Speech Therapy Rehab Orders (12/03/18 12:10) Intake & Output 06,14, (12/03/18 12:10) Weight Bearing Status (12/03/18 12:10) Precautions (Aru) (12/03/18 12:10) Weekly Weight (Lbs) WEEK (12/03/18 12:10) Rehab-Intensity Of Therapy (12/03/18 12:10) Code/Resuscitation (12/03/18 12:10) Initiate Admission Nursing Pro .admission (12/03/18 12:10) Acetaminophen Tablet (Tylenol Tablet) (12/03/18 12:15) Alprazolam Tablet (Xanax Tablet) (12/03/18 12:15) Calcium Carbonate Chew Tablet (Antacid C (12/03/18 12:15) Docusate Sodium Capsule (Colace Capsule) (12/03/18 12:15) Melatonin Tablet (Melatonin Tablet) (12/03/18 12:15) Polyethylene Glycol Powder Pkt (Miralax (12/03/18 12:15) Ondansetron Oral Dissolve Tab (Zofran (12/03/18 12:15) Patient Visit (12/03/18 ) Pt Eval Moderate Complexity (12/03/18 ) Functional Activities, Ea 15 (12/03/18 ) Patient Visit (12/03/18 ) Speech Sound Lang Comp (12/03/18 ) Patient Visit (12/03/18 ) Therapeutic, Group (12/03/18 ) (Nf) Lactose Enzyme/Dietary Supplement (12/03/18 16:30) Patient Visit (12/04/18 ) Gait Training, Ea 15 Min (12/04/18 ) Exercise Therap, Ea 15 Min (12/04/18 ) Rehab Nursing Orders: Ongoing Assess. of Function Status, Bowel Management, Disease Management & Educaiton, DVT Prophylaxis, Fluid/Electrolyte/Nutrition Mgmt, Infection Prevention, Medication Management & Education, Pain Management, Patient/Family Support, Safety Management Intensity of Therapy to be met Patient to be seen: Min.3h per day/5 of 7d PT IPOC Problem List: Activity Tolerance, Functional Strength, Gait Treatment Plan: Continue Plan of Care Bed Mobility, Education, Functional Activity Jennifer, Functional Strength, Group Therapy, Gait, Safety, Therapeutic Exercise, Transfers Treatment Duration: Dec 20, 2018 Frequency: At least 5 of 7 days/Wk (IRF) Estimated Hrs Per Day: 1.5 hours per day OT IPOC Problems: Decreased Activ Tolerance, Decreased UE Strength, Dependent Transfers , Impaired I ADL's, Impaired Self-Care Skills OT Treatment, Training and Edu: Yes OT Problems Pt had a fall resulting in left hip fracture, now s/p hemiarthroplasty. Pt demonstrates decreased mobility, ADL functioning, strength, and activity tolerance. Pt to benefit from skilled OT intervention for ADL training, transfers, strengthening, adaptive equipment training, and education to maximize level of function and allow safe discharge home. Plan of Care: ADL Retraining, Functional Mobility, Group Exercise/Act as Ind, UE Funct Exercise/Act Treatment Duration: Dec 24, 2018 Frequency: At least 5 of 7 days/Wk (IRF) Estimated Hrs Per Day: 1.[address] IPOC Speech Therapy Treatment Plan: Discontinue ST Treatment Duration: Dec 03, 2018 Frequency: 1 time per week Estimated Hrs Per Day: .25 hour per day Low Emission Automobile Designer/Case Mgmt Low Emission Automobile Designer/Case Managemen: Discharge Planning Dietitian/Dispatcher Electric Power Dietitian/Dispatcher Electric Power to monitor nutritional status and make changes and/or recommendations as needed and work with speech pathology on dietary upgrades as the occur. Physician IPOC Medical Issues being managed closely and that require the 24 hour availability of a physician: Advanced age and fall risk and monitoring bowel function and delirium prevention Medical Issues: DVT Prophylaxis, Falls Precautions, Fluid/Electrolyte/ Nutrition Balance, Pain Management Brief Synthesis of Preadmission Screen, Post-Admission Evaluation, and Therapy Evaluations: PT/OT will work on improving ADL's and pain control to return home alone Medical Prognosis: Good Anticipated Length of Stay: 7 days MICHELLE LARSON DO Dec 04, 2018 11:07
--- NOTE | 2018-12-04 11:07 | PM&R Progress Note ---
Subjective HPI/CC On Admission Date Seen by Provider: Dec 04, 2018 Time Seen by Provider: 11:15 CC: Debility following left hip fracture HPI: This is a healthy 88yoWF who presents to the IRF for intensive therapy after suffering a left hip fracture sustained in a fall at home and undergoing an uncomplicated hip fracture by Dr Hartley. Patient is healthy ordinarily and resides at home with family involvement and intends to return home at e completion of IRF protocol. Currently she reports the pain is controlled and labs and meds were reviewed and no major concerns identified. Cath was DC and bowels will be monitored since she had diarrhea prior to admit and that was the reason she was so weak and suffered a fall at home. Patient is participating with therapies on 4th floor and overall has no limitations for admit to IRF. Subjective/Events-last exam Patient doing well Adjusted to inpatient rehabilitation after transferred from fourth floor yesterday Pain is improving No bowel movement yesterday so will initiate MiraLAX twice a day along with stool softener Has muscle spasms so will start baclofen 5 MG every 6 hours when necessary Wants a shower Family at the bedside Review of Systems General: Fatigue Gastrointestinal: Constipation Musculoskeletal: leg pain Objective Exam Vital Signs Vital Signs Date Time Temp Pulse Resp B/P (MAP) Pulse Ox O2 Delivery O2 Flow Rate FiO2 12/04/18 10:14 Room Air 12/04/18 05:20 97.8 97 16 132/77 (95) 93 Capillary Refill : General Appearance: No Apparent Distress, WD/WN, Chronically ill, Thin, Other ( frail) HEENT: PERRL/EOMI, Normal ENT Inspection, Pharynx Normal, Moist Mucous Membranes Neck: Full Range of Motion, Normal Inspection, Non Tender, Supple Respiratory: Chest Non Tender, Lungs Clear, Normal Breath Sounds, No Accessory Muscle Use, No Respiratory Distress Cardiovascular: Regular Rate, Rhythm, No Edema, No Gallop, No JVD, No Murmur Gastrointestinal: Normal Bowel Sounds, No Organomegaly, No Pulsatile Mass, Non Tender, Soft Back: Normal Inspection, No CVA Tenderness, No Vertebral Tenderness Extremity: Normal Capillary Refill, Normal Inspection, Normal Range of Motion ( except left leg), Non Tender, No Calf Tenderness, No Pedal Edema Neurologic/Psychiatric: Alert, Oriented x3, No Motor/Sensory Deficits, Normal Mood/Affect Skin: Normal Color, Warm/Dry Lymphatic: No Adenopathy Results/Procedures Lab Patient resulted labs reviewed. Assessment/Plan Assessment and Plan Assess & Plan/Chief Complaint Assessment: Debility following a left femoral neck fracture Fall at home s/p dehydration from diarrhea Corneal transplant in the past Post op anemia Constipation acute Plan: Monitor labs Home meds Lovenox IRF BM regimen (1) Hip fracture (2) Advanced age (3) Anemia due to acute blood loss (4) Corneal transplant status Clinical Quality Measures DVT/VTE Risk/Contraindication: Risk Factor Score Per Nursin RFS Level Per Nursing on Admit: 4+=Very High MICHELLE LARSON DO Dec 04, 2018 11:07
--- NOTE | 2018-12-04 13:00 | NUR ---
Up to the BR. Patient reports moderate BM. Addendum: 12/04/18 at 1734 by ROCIO HAMPTON RN Patient wants to hold off on Miralax since she had a moderate sized BM.
[2018-12-04] MEDS: BACLOFEN 10 MG (LIORESAL) TAB PO PRN (15:06)
[2018-12-04 16:37] VITALS: BP 129/77
[2018-12-05 05:18] VITALS: BP 119/69
[2018-12-05] MEDS: HYDROcodone/APAP 10 MG/325 MG (LORTAB) TAB PO PRN ×4 (06:35→22:16)
[2018-12-05] MEDS: SENNA W/DOCUSATE (SENOKOT S) TABLET PO SCH ×2 (08:41→20:21)
[2018-12-05] MEDS: ASPIRIN E.C. 325 MG (ECOTRIN) TABLET PO SCH (08:41)
[2018-12-05] MEDS: guaiFENesin (MUCINEX) 600 MG TAB PO SCH ×2 (08:41→20:21)
[2018-12-05] MEDS: ENOXAPARIN 30 MG/0.3 ML (LOVENOX) SYR SC SCH (08:41)
[2018-12-05] MEDS: prednisoLONE 1% OPTH (PRED FORTE) 5 ML BTL OP SCH (08:43)
--- NOTE | 2018-12-05 11:15 | PM&R Progress Note ---
Subjective HPI/CC On Admission Date Seen by Provider: Dec 05, 2018 Time Seen by Provider: 11:00 CC: Debility following left hip fracture HPI: This is a healthy 88yoWF who presents to the IRF for intensive therapy after suffering a left hip fracture sustained in a fall at home and undergoing an uncomplicated hip fracture by Dr Hartley. Patient is healthy ordinarily and resides at home with family involvement and intends to return home at e completion of IRF protocol. Currently she reports the pain is controlled and labs and meds were reviewed and no major concerns identified. Cath was DC and bowels will be monitored since she had diarrhea prior to admit and that was the reason she was so weak and suffered a fall at home. Patient is participating with therapies on 4th floor and overall has no limitations for admit to IRF. Subjective/Events-last exam Patient doing well Adjusted to inpatient rehabilitation and seems to enjoy the care and environment Pain is improving Bowels are moving well Has muscle spasms so will start baclofen 5 MG every 6 hours when necessary and that is working well for the patient Had a shower and feels good Review of Systems Musculoskeletal: leg pain Objective Exam Vital Signs Vital Signs Date Time Temp Pulse Resp B/P (MAP) Pulse Ox O2 Delivery O2 Flow Rate FiO2 12/05/18 09:47 Room Air 12/05/18 05:18 97.9 92 18 119/69 (86) 93 Capillary Refill : General Appearance: No Apparent Distress, WD/WN, Chronically ill, Thin, Other ( frail) HEENT: PERRL/EOMI, Normal ENT Inspection, Pharynx Normal, Moist Mucous Membranes Neck: Full Range of Motion, Normal Inspection, Non Tender, Supple Respiratory: Chest Non Tender, Lungs Clear, Normal Breath Sounds, No Accessory Muscle Use, No Respiratory Distress Cardiovascular: Regular Rate, Rhythm, No Edema, No Gallop, No JVD, No Murmur Gastrointestinal: Normal Bowel Sounds, No Organomegaly, No Pulsatile Mass, Non Tender, Soft Back: Normal Inspection, No CVA Tenderness, No Vertebral Tenderness Extremity: Normal Capillary Refill, Normal Inspection, Normal Range of Motion ( except left leg), Non Tender, No Calf Tenderness, No Pedal Edema Neurologic/Psychiatric: Alert, Oriented x3, No Motor/Sensory Deficits, Normal Mood/Affect Skin: Normal Color, Warm/Dry Lymphatic: No Adenopathy Results/Procedures Lab Patient resulted labs reviewed. Assessment/Plan Assessment and Plan Assess & Plan/Chief Complaint Assessment: Debility following a left femoral neck fracture Fall at home s/p dehydration from diarrhea Corneal transplant in the past Post op anemia Constipation acute now resolved Plan: Monitor labs Home meds Lovenox IRF BM regimen prn (1) Hip fracture (2) Advanced age (3) Anemia due to acute blood loss (4) Corneal transplant status Clinical Quality Measures DVT/VTE Risk/Contraindication: Risk Factor Score Per Nursin RFS Level Per Nursing on Admit: 4+=Very High MICHELLE LARSON DO Dec 05, 2018 11:15
[2018-12-05] MEDS: BACLOFEN 10 MG (LIORESAL) TAB PO PRN ×2 (11:32→22:16)
[2018-12-05 17:11] VITALS: BP 139/80
[2018-12-06] MEDS: HYDROcodone/APAP 10 MG/325 MG (LORTAB) TAB PO PRN ×5 (03:10→23:16)
[2018-12-06 05:11] VITALS: BP 145/74
--- NOTE | 2018-12-06 08:00 | NUR ---
DENIES PAIN AT REST. DOES HAVE HIP PAIN AND MUSCLES SPASMS WITH MOVEMENT, BUT GOOD PAIN RELIEF WITH LORTAB AND BACLOFEN.
--- NOTE | 2018-12-06 08:20 | PM&R Progress Note ---
Subjective HPI/CC On Admission Date Seen by Provider: Dec 06, 2018 Time Seen by Provider: 08:15 CC: Debility following left hip fracture HPI: This is a healthy 88yoWF who presents to the IRF for intensive therapy after suffering a left hip fracture sustained in a fall at home and undergoing an uncomplicated hip fracture by Dr Hartley. Patient is healthy ordinarily and resides at home with family involvement and intends to return home at e completion of IRF protocol. Currently she reports the pain is controlled and labs and meds were reviewed and no major concerns identified. Cath was DC and bowels will be monitored since she had diarrhea prior to admit and that was the reason she was so weak and suffered a fall at home. Patient is participating with therapies on 4th floor and overall has no limitations for admit to IRF. Subjective/Events-last exam Pt doing well except for leg pain Participating in therapies Using IS Overall feels like she is improving enough and will ultimately go home alone with family involved Review of Systems General: Fatigue Musculoskeletal: leg pain Objective Exam Vital Signs Vital Signs Date Time Temp Pulse Resp B/P (MAP) Pulse Ox O2 Delivery O2 Flow Rate FiO2 12/06/18 17:38 98.6 88 20 132/87 (102) 97 Room Air Capillary Refill : General Appearance: No Apparent Distress, WD/WN, Chronically ill, Thin, Other ( frail) HEENT: PERRL/EOMI, Normal ENT Inspection, Pharynx Normal, Moist Mucous Membranes Neck: Full Range of Motion, Normal Inspection, Non Tender, Supple Respiratory: Chest Non Tender, Lungs Clear, Normal Breath Sounds, No Accessory Muscle Use, No Respiratory Distress Cardiovascular: Regular Rate, Rhythm, No Edema, No Gallop, No JVD, No Murmur Gastrointestinal: Normal Bowel Sounds, No Organomegaly, No Pulsatile Mass, Non Tender, Soft Back: Normal Inspection, No CVA Tenderness, No Vertebral Tenderness Extremity: Normal Capillary Refill, Normal Inspection, Normal Range of Motion ( except left leg), Non Tender, No Calf Tenderness, No Pedal Edema Neurologic/Psychiatric: Alert, Oriented x3, No Motor/Sensory Deficits, Normal Mood/Affect Skin: Normal Color, Warm/Dry Lymphatic: No Adenopathy Results/Procedures Lab Patient resulted labs reviewed. Assessment/Plan Assessment and Plan Assess & Plan/Chief Complaint Assessment: Debility following a left femoral neck fracture Fall at home s/p dehydration from diarrhea Corneal transplant in the past Post op anemia Constipation acute now resolved Plan: Monitor labs Home meds Lovenox IRF BM regimen prn (1) Hip fracture (2) Advanced age (3) Anemia due to acute blood loss (4) Corneal transplant status Clinical Quality Measures DVT/VTE Risk/Contraindication: Risk Factor Score Per Nursin RFS Level Per Nursing on Admit: 4+=Very High MICHELLE LARSON DO Dec 06, 2018 08:20
[2018-12-06] MEDS: BACLOFEN 10 MG (LIORESAL) TAB PO PRN ×3 (08:35→23:17)
[2018-12-06] MEDS: ASPIRIN E.C. 325 MG (ECOTRIN) TABLET PO SCH (08:35)
[2018-12-06] MEDS: guaiFENesin (MUCINEX) 600 MG TAB PO SCH ×2 (08:36→20:58)
[2018-12-06] MEDS: SENNA W/DOCUSATE (SENOKOT S) TABLET PO SCH ×2 (08:37→21:09)
[2018-12-06] MEDS: ENOXAPARIN 30 MG/0.3 ML (LOVENOX) SYR SC SCH (08:38)
[2018-12-06] MEDS: prednisoLONE 1% OPTH (PRED FORTE) 5 ML BTL OP SCH (08:39)
--- NOTE | 2018-12-06 10:11 | Physical Therapy Daily Note ---
PT Daily Note-Current Subjective Pt in bed states she is having spasms in her left hip and just took meds. Agrees to Rx Pain Numeric Pain Scale: 7 Location: Left Location Body Site: Hip Pain Description: Ache Mental Status Patient Orientation: Normal For Age Transfers Therapy Code Descriptions/Definitions Functional [place] Measure: 0=Not Assessed/NA 4=Minimal Assistance 1=Total Assistance 5=Supervision or Setup 2=Maximal Assistance 6=Modified [place] 3=Moderate Assistance 7=Complete [place] Therapy Quality Codes: 6 Independent with activity with or without an assistive device 5 Patient requires set up or clean up by helper. Patient completes activity by themselves 4 Supervision or touching assist (CGA). [place] provide cues , steadying assist 3 The helper provides less than half the effort to complete the activity 2 The helper provides more than half the effort to complete the activity 1 Dependent. The helper does all the effort to complete an activity 7 Patient refused to complete or attempt activity 9 The patient did not perform the activity before the current illness or injury 88 Not attempted due to Medical conditions or safety concerns Transfers (B, C, W/C) (FIM): 5 Scootin Rollin Supine to/from Sit: 5 Sit to/from Stand: 5 Weight Bearing Right Lower Extremity: Right Full Weight Bearing Left Lower Extremity: Left Weight Bearing/Tolerated THR precautions Gait Training Does the Patient Walk?: Yes Gait (FIM): 4 Distance (FIM): 3=150 ft (160,85x2) Gait Level of Assist: 4 Gait Persons Needed: 1 Gait Assistive Device: FWW instruction for wt bearing and rolling FWW as well as step length and CLAUDETTE broadened somewhat Exercises Supine Ex: Ankle pumps, Quad Set, Rolling, Glut sets, Heel Slides, Short Arc Quads, Scooting, Straight leg raise (assist), Hip abd/add Supine Reps: 15 Seated Therapy Exercises: Ankle pumps, Sit to stand, Long arc quads Seated Reps: 14 NuStep Minutes: 10 NuStep Workload: 3 Assessment Current Status: Good Progress PT Short Term Goals Short Term Goals Time Frame: Dec 08, 2018 Gait (FIM): 4 Distance (FIM): 3=150 ft Gait Assistive Device: FWW PT Prison Goals Rubber Tile Floor Layer Goals PT Rubber Tile Floor Layer Goals Time Frame: Dec 20, 2018 Transfers (B,C,W/C) (FIM): 6 Sit to Lying (QC): 6 Lying-Sitting on Side/Bed(QC): 6 Sit to Stand (QC): 6 Rollin Roll Left to Right (QC): 6 Chair/[id number]-wi-[id number] Xfer(QC): 6 Car Transfer (QC): 6 Does the Patient Walk: Yes Gait (FIM): 6 Gait distance (FIM): 3=150 ft Walk 10 feet (QC): 6 Walk 10ft-Uneven Surface(QC): 6 Walk 50ft with 2 Turns (QC): 6 Walk 150 ft (QC): 6 Gait Assistive Device: FWW Does the Pt use WC or Scooter?: No Stairs (FIM): 5 # of Steps: 4 1 Step (curb) (QC): 6 4 Steps (QC): 6 12 Steps (QC): 88 Stairs Level Of Assist: 6 Picking up an Object (QC): 88 PT Plan Treatment/Plan Treatment Plan: Continue Plan of Care Treatment Plan: Bed Mobility, Education, Functional Activity Jennifer, Functional Strength, Group Therapy, Gait, Safety, Therapeutic Exercise, Transfers Treatment Duration: Dec 20, 2018 Frequency: At least 5 of 7 days/Wk (IRF) Estimated Hrs Per Day: 1.5 hours per day Patient and/or Family Agrees t: Yes Safety Risks/Education Patient Education: Gait Training, Transfer Techniques, Correct Positioning, Disease Process, Safety Issues Teaching Recipient: Patient Teaching Methods: Demonstration, Discussion Response to Teaching: Verbalize Understanding, Return Demonstration, Reinforcement Needed Time/GCodes Time In: 900 Time Out: 1000 Total Billed Treatment Time: 60 Total Billed Treatment 1,EX30m,FA15m,GT15m G Codes Necessary: JUAN Bhakta PARTS COUNTER SPECIALIST Dec 06, 2018 10:10
[2018-12-06] MEDS ORDERED: diphenhydrAMINE 25 MG TAB (BENADRYL) PO PRN (11:00)
--- NOTE | 2018-12-06 11:00 | NUR ---
Pastoral care visit.
--- NOTE | 2018-12-06 11:05 | Occupational Ther Daily Note ---
OT Current Status-Daily Note Subjective Pt finishing up with PT. RODRÍGUEZ took over care of pt. Pt agrees to therapy. No c/o pain. Mental Status/Objective Patient Orientation: Person, Time Therapy Code Descriptions/Definitions Functional [place] Measure: 0=Not Assessed/NA 4=Minimal Assistance 1=Total Assistance 5=Supervision or Setup 2=Maximal Assistance 6=Modified [place] 3=Moderate Assistance 7=Complete [place] ADL-Treatment Therapy Code Descriptions/Definitions Functional [place] Measure: 0=Not Assessed/NA 4=Minimal Assistance 1=Total Assistance 5=Supervision or Setup 2=Maximal Assistance 6=Modified [place] 3=Moderate Assistance 7=Complete [place] Therapy Quality Codes: 6 Independent with activity with or without an assistive device 5 Patient requires set up or clean up by helper. Patient completes activity by themselves 4 Supervision or touching assist (CGA). [place] provide cues , steadying assist 3 The helper provides less than half the effort to complete the activity 2 The helper provides more than half the effort to complete the activity 1 Dependent. The helper does all the effort to complete an activity 7 Patient refused to complete or attempt activity 9 The patient did not perform the activity before the current illness or injury 88 Not attempted due to Medical conditions or safety concerns Grooming (FIM): 6 (Sitting at sink, pt able to complete.) Oral Hygiene (QC): 6 Bathing (FIM): 5 (SBA for safety using shower bench, grabbar, hand held shower and long handle sponge.) Bathing Location: L Arm, R Arm, L Upper Leg, R Upper Leg, L Lower Leg ( including foot), R Lower Leg (including foot), Chest, Abdomen, Buttocks, Perineal Area Shower/Bathe Self (QC): 4 Upper Body (FIM): 5 (After set up, pt able to complete by self.) Upper Body Dressing (QC): 5 Lower Body Dressing (FIM): 4 (Pt requires verbal cues for precautions and use of AE. Pt able to complete socks and pants with verbal cues. Assist to don shoes.) Lower Body Dressing (QC): 3 On/Off Footwear (QC): 3 Toileting (FIM): 5 (Using grabbars and FWW, pt able to complete toileting with SBA.) Toileting Hygiene (QC): 4 Toilet/Commode Transfer (FIM): 4 (CGA for safety using FWW and grabbars. Verbal cues to use grabbars instead of FWW with sit<-->stand.) Toilet Transfer (QC): 3 Shower Transfer(FIM): 4 (CGA for safety using FWW, shower bench and grabbars.) After therapy, pt lying in bed with call light/phone in reach. All needs met in room. OT Short Term Goals Short Term Goals Time Frame: Dec 10, 2018 Bathing(FIM): 4 Lower Body Dressing(FIM): 4 Toileting(FIM): 4 Toilet/Commode Transfer(FIM): 5 Additional Short Term Goals: 1-Demonstrate ADL Tasks, 2-Verbalize Understanding , 3-ImproveStrength/Jennifer 1=Demonstrate adherence to instructed precautions during ADL tasks. 2=Patient will verbalize/demonstrate understanding of assistive devices/ modifications for ADL. 3=Patient will improve strength/tolerance for activity to enable patient to perform ADL's. OT Instructor Business Education Goals Instructor Business Education Goals Time Frame: Dec 24, 2018 Eating (FIM): 6 Eating (QC): 6 Groomin Oral Hygiene (QC): 6 Bathing(FIM): 5 Shower/Bathe Self (QC): 5 Upper Body Dressing(FIM): 6 Upper Body Dressing (QC): 6 Lower Body Dressing(FIM): 5 Lower Body Dressing (QC): 5 On/Off Footwear (QC): 6 Toileting(FIM): 6 Toileting Hygiene (QC): 6 Toilet/Commode Transfer(FIM): 6 Toilet/Commode Transfer (QC): 6 Shower Transfer(FIM): 5 Additional Goals: 1-Demonstrate ADL Tasks, 2-Verbalize Understanding, 3- ImproveStrength/Jennifer 1=Demonstrate adherence to instructed precautions during ADL tasks. 2=Patient will verbalize/demonstrate understanding of assistive devices/ modifications for ADL. 3=Patient will improve strength/tolerance for activity to enable patient to perform ADL's. OT Education/Plan Problem List/Assessment Assessment: Decreased Activ Tolerance, Decreased UE Strength, Impaired Funct Balance, Impaired Self-Care Skills Pt had a fall resulting in left hip fracture, now s/p hemiarthroplasty. Pt demonstrates decreased mobility, ADL functioning, strength, and activity tolerance. Pt to benefit from skilled OT intervention for ADL training, transfers, strengthening, adaptive equipment training, and education to maximize level of function and allow safe discharge home. Discharge Recommendations Plan/Recommendations: Continue POC Treatment Plan/Plan of Care Patient would benefit from OT for education, treatment and training to promote independence in ADL's, mobility, safety and/or upper extremity function for ADL' s. Plan of Care: ADL Retraining, Functional Mobility, Group Exercise/Act as Ind, UE Funct Exercise/Act Treatment Duration: Dec 24, 2018 Frequency: At least 5 of 7 days/Wk (IRF) Estimated Hrs Per Day: 1.5 hours per day Rehab Potential: Good Time/GCodes Start Time: 01:00 Stop Time: 11:00 Total Time Billed (hr/min): 60 Billed Treatment Time 1 visit-ADL 4 (60 min) JAMIE NELSON Dec 06, 2018 11:05
--- NOTE | 2018-12-06 13:58 | Occupational Ther Daily Note ---
OT Current Status-Daily Note Subjective Pt alert, lying in bed. Nrsg in bed to administer pain meds. Pt agrees to therapy. Mental Status/Objective Patient Orientation: Person, Place Therapy Code Descriptions/Definitions Functional [place] Measure: 0=Not Assessed/NA 4=Minimal Assistance 1=Total Assistance 5=Supervision or Setup 2=Maximal Assistance 6=Modified [place] 3=Moderate Assistance 7=Complete [place] ADL-Treatment Therapy Code Descriptions/Definitions Functional [place] Measure: 0=Not Assessed/NA 4=Minimal Assistance 1=Total Assistance 5=Supervision or Setup 2=Maximal Assistance 6=Modified [place] 3=Moderate Assistance 7=Complete [place] Therapy Quality Codes: 6 Independent with activity with or without an assistive device 5 Patient requires set up or clean up by helper. Patient completes activity by themselves 4 Supervision or touching assist (CGA). [place] provide cues , steadying assist 3 The helper provides less than half the effort to complete the activity 2 The helper provides more than half the effort to complete the activity 1 Dependent. The helper does all the effort to complete an activity 7 Patient refused to complete or attempt activity 9 The patient did not perform the activity before the current illness or injury 88 Not attempted due to Medical conditions or safety concerns Other Treatment Supine to EOB, mod I. Transfers from EOB to recliner close SBA using FWW. Pt then completed UE medium resistance theraband exercises. 4 exercises, 1 set 10 reps, tolerated well though voiced fatigue. Theraband left in room for use. After therapy, pt sitting in recliner with call light/phone in reach. Nrsg and visitor present in room. All needs met in room. Education OT Patient Education: Exercise program Teaching Recipient: Patient Teaching Methods: Demonstration Response to Teaching: Return Demonstration, Reinforcement Needed OT Short Term Goals Short Term Goals Time Frame: Dec 10, 2018 Bathing(FIM): 4 Lower Body Dressing(FIM): 4 Toileting(FIM): 4 Toilet/Commode Transfer(FIM): 5 Additional Short Term Goals: 1-Demonstrate ADL Tasks, 2-Verbalize Understanding , 3-ImproveStrength/Jennifer 1=Demonstrate adherence to instructed precautions during ADL tasks. 2=Patient will verbalize/demonstrate understanding of assistive devices/ modifications for ADL. 3=Patient will improve strength/tolerance for activity to enable patient to perform ADL's. OT [facility] Goals Irrigation Equipment Mechanic Goals Time Frame: Dec 24, 2018 Eating (FIM): 6 Eating (QC): 6 Groomin Oral Hygiene (QC): 6 Bathing(FIM): 5 Shower/Bathe Self (QC): 5 Upper Body Dressing(FIM): 6 Upper Body Dressing (QC): 6 Lower Body Dressing(FIM): 5 Lower Body Dressing (QC): 5 On/Off Footwear (QC): 6 Toileting(FIM): 6 Toileting Hygiene (QC): 6 Toilet/Commode Transfer(FIM): 6 Toilet/Commode Transfer (QC): 6 Shower Transfer(FIM): 5 Additional Goals: 1-Demonstrate ADL Tasks, 2-Verbalize Understanding, 3- ImproveStrength/Jennifer 1=Demonstrate adherence to instructed precautions during ADL tasks. 2=Patient will verbalize/demonstrate understanding of assistive devices/ modifications for ADL. 3=Patient will improve strength/tolerance for activity to enable patient to perform ADL's. OT Education/Plan Problem List/Assessment Pt had a fall resulting in left hip fracture, now s/p hemiarthroplasty. Pt demonstrates decreased mobility, ADL functioning, strength, and activity tolerance. Pt to benefit from skilled OT intervention for ADL training, transfers, strengthening, adaptive equipment training, and education to maximize level of function and allow safe discharge home. Discharge Recommendations Plan/Recommendations: Continue POC Treatment Plan/Plan of Care Patient would benefit from OT for education, treatment and training to promote independence in ADL's, mobility, safety and/or upper extremity function for ADL' s. Plan of Care: ADL Retraining, Functional Mobility, Group Exercise/Act as Ind, UE Funct Exercise/Act Treatment Duration: Dec 24, 2018 Frequency: At least 5 of 7 days/Wk (IRF) Estimated Hrs Per Day: 1.5 hours per day Rehab Potential: Good Time/GCodes Start Time: 13:00 Stop Time: 13:30 Total Time Billed (hr/min): 30 Billed Treatment Time 1 visit-EX 1 (15 min) FA 1 (15 min) JAMIE NELSON Dec 06, 2018 13:58
[2018-12-06] MEDS ORDERED: ACET-2267 PO (13:59)
[2018-12-06] MEDS ORDERED: DOCU-143 PO (13:59)
[2018-12-06] MEDS ORDERED: GLYC30DR4 OU (13:59)
[2018-12-06] MEDS ORDERED: CALC-6 PO (14:01)
[2018-12-06] MEDS ORDERED: OMG1KC PO (14:01)
[2018-12-06] MEDS ORDERED: MELA5TAB14 PO (14:01)
[2018-12-06] MEDS ORDERED: MULT-166 PO (14:01)
--- NOTE | 2018-12-06 14:02 | Physical Therapy Daily Note ---
PT Daily Note-Current Subjective Pt. agrees to Rx. Pain in left hip rated at 3/10. Pain Numeric Pain Scale: 3 Location: Left Location Body Site: Hip Pain Description: Ache Mental Status Patient Orientation: Normal For Age Transfers Therapy Code Descriptions/Definitions Functional [place] Measure: 0=Not Assessed/NA 4=Minimal Assistance 1=Total Assistance 5=Supervision or Setup 2=Maximal Assistance 6=Modified [place] 3=Moderate Assistance 7=Complete [place] Therapy Quality Codes: 6 Independent with activity with or without an assistive device 5 Patient requires set up or clean up by helper. Patient completes activity by themselves 4 Supervision or touching assist (CGA). [place] provide cues , steadying assist 3 The helper provides less than half the effort to complete the activity 2 The helper provides more than half the effort to complete the activity 1 Dependent. The helper does all the effort to complete an activity 7 Patient refused to complete or attempt activity 9 The patient did not perform the activity before the current illness or injury 88 Not attempted due to Medical conditions or safety concerns in out bed and chair as well as on off toilet CGA to SBA Weight Bearing Right Lower Extremity: Right Full Weight Bearing Left Lower Extremity: Left Weight Bearing/Tolerated THR precautions Gait Training Does the Patient Walk?: Yes Gait Assistive Device: FWW 120ft 100 ft, slow, emphasizing equal step length and safe CLAUDETTE and proper use of FWW with regards to proximity to body etc Exercises Supine Ex: Ankle pumps, Quad Set, Glut sets, Heel Slides, Scooting, Hip abd/add Supine Reps: 15 Seated Therapy Exercises: Ankle pumps, Sit to stand, Long arc quads, Hip abd/ add Seated Reps: 15 Assessment Current Status: Good Progress PT Short Term Goals Short Term Goals Time Frame: Dec 08, 2018 Gait (FIM): 4 Distance (FIM): 3=150 ft Gait Assistive Device: FWW PT Computer Recycling Worker Goals Computer Recycling Worker Goals PT Computer Recycling Worker Goals Time Frame: Dec 20, 2018 Transfers (B,C,W/C) (FIM): 6 Sit to Lying (QC): 6 Lying-Sitting on Side/Bed(QC): 6 Sit to Stand (QC): 6 Rollin Roll Left to Right (QC): 6 Chair/Sni-sd-Bokvq Xfer(QC): 6 Car Transfer (QC): 6 Does the Patient Walk: Yes Gait (FIM): 6 Gait distance (FIM): 3=150 ft Walk 10 feet (QC): 6 Walk 10ft-Uneven Surface(QC): 6 Walk 50ft with 2 Turns (QC): 6 Walk 150 ft (QC): 6 Gait Assistive Device: FWW Does the Pt use WC or Scooter?: No Stairs (FIM): 5 # of Steps: 4 1 Step (curb) (QC): 6 4 Steps (QC): 6 12 Steps (QC): 88 Stairs Level Of Assist: 6 Picking up an Object (QC): 88 PT Plan Treatment/Plan Treatment Plan: Continue Plan of Care Treatment Plan: Bed Mobility, Education, Functional Activity Jennifer, Functional Strength, Group Therapy, Gait, Safety, Therapeutic Exercise, Transfers Treatment Duration: Dec 20, 2018 Frequency: At least 5 of 7 days/Wk (IRF) Estimated Hrs Per Day: 1.5 hours per day Patient and/or Family Agrees t: Yes Safety Risks/Education Patient Education: Gait Training, Transfer Techniques, Correct Positioning, Disease Process, Safety Issues Teaching Recipient: Patient Teaching Methods: Demonstration, Discussion Response to Teaching: Verbalize Understanding, Return Demonstration, Reinforcement Needed Time/GCodes Time In: 1330 Time Out: 1400 Total Billed Treatment Time: 30 Total Billed Treatment 1,EX10,GT20 G Codes Necessary: No JUAN KIRKLAND INTERNATIONAL PROJECT MANAGER Dec 06, 2018 14:02
[2018-12-06] MEDS ORDERED: PRED5DRO17 OU (14:03)
[2018-12-06 17:38] VITALS: BP 132/87
--- NOTE | 2018-12-06 19:45 | NUR ---
INCREASED MUSCLE SPASMS IN LEFT HIP AND LEG THIS AFTERNOON. APPEARS TO HAVE BEST RELIEF WITH LORTAB AND BACLOFEN GIVEN TOGETHER.
--- NOTE | 2018-12-07 01:00 | NUR ---
Received report from TOMAS Yates. This RN to assume care at this time. Agree with previous dramatic art teacher.
[2018-12-07] MEDS: HYDROcodone/APAP 10 MG/325 MG (LORTAB) TAB PO PRN ×4 (03:53→20:50)
[2018-12-07 05:50] VITALS: BP 130/69
[2018-12-07 08:00] VITALS: BP 126/66
--- NOTE | 2018-12-07 08:45 | PM&R Progress Note ---
Subjective HPI/CC On Admission Date Seen by Provider: Dec 07, 2018 Time Seen by Provider: 08:30 CC: Debility following left hip fracture HPI: This is a healthy 88yoWF who presents to the IRF for intensive therapy after suffering a left hip fracture sustained in a fall at home and undergoing an uncomplicated hip fracture by Dr Hartley. Patient is healthy ordinarily and resides at home with family involvement and intends to return home at e completion of IRF protocol. Currently she reports the pain is controlled and labs and meds were reviewed and no major concerns identified. Cath was DC and bowels will be monitored since she had diarrhea prior to admit and that was the reason she was so weak and suffered a fall at home. Patient is participating with therapies on 4th floor and overall has no limitations for admit to IRF. Subjective/Events-last exam Baclofen was changes to 10mg QID because she is benefitting from that and does not become drowsy. Has good bowel movements. Incision looks good per nursing. Overall participating in therapies and has no concerns. Review of Systems General: Fatigue Musculoskeletal: leg pain Objective Exam Vital Signs Vital Signs Date Time Temp Pulse Resp B/P (MAP) Pulse Ox O2 Delivery O2 Flow Rate FiO2 12/07/18 17:18 99.0 83 20 110/61 (77) 95 Room Air Capillary Refill : General Appearance: No Apparent Distress, WD/WN, Chronically ill, Thin, Other ( frail) HEENT: PERRL/EOMI, Normal ENT Inspection, Pharynx Normal, Moist Mucous Membranes Neck: Full Range of Motion, Normal Inspection, Non Tender, Supple Respiratory: Chest Non Tender, Lungs Clear, Normal Breath Sounds, No Accessory Muscle Use, No Respiratory Distress Cardiovascular: Regular Rate, Rhythm, No Edema, No Gallop, No JVD, No Murmur Gastrointestinal: Normal Bowel Sounds, No Organomegaly, No Pulsatile Mass, Non Tender, Soft Back: Normal Inspection, No CVA Tenderness, No Vertebral Tenderness Extremity: Normal Capillary Refill, Normal Inspection, Normal Range of Motion ( except left leg), Non Tender, No Calf Tenderness, No Pedal Edema Neurologic/Psychiatric: Alert, Oriented x3, No Motor/Sensory Deficits, Normal Mood/Affect Skin: Normal Color, Warm/Dry Lymphatic: No Adenopathy Results/Procedures Lab Patient resulted labs reviewed. 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
[2018-12-07] MEDS: ASPIRIN E.C. 325 MG (ECOTRIN) TABLET PO SCH (09:00)
--- NOTE | 2018-12-07 09:00 | NUR ---
PATIENT COMPLAINS OF WORSENING MUSCLE SPASMS IN LEFT HIP AND LEG. DR. LARSON INFORMED AND BACLOFEN DOSAGE INCREASED.
[2018-12-07] MEDS: SENNA W/DOCUSATE (SENOKOT S) TABLET PO SCH ×2 (09:01→20:51)
[2018-12-07] MEDS: guaiFENesin (MUCINEX) 600 MG TAB PO SCH ×2 (09:01→20:50)
[2018-12-07] MEDS: ENOXAPARIN 30 MG/0.3 ML (LOVENOX) SYR SC SCH (09:03)
[2018-12-07] MEDS: BACLOFEN 10 MG (LIORESAL) TAB PO PRN ×3 (09:06→20:50)
[2018-12-07] MEDS: prednisoLONE 1% OPTH (PRED FORTE) 5 ML BTL OP SCH (09:10)
--- NOTE | 2018-12-07 11:00 | Occupational Ther Daily Note ---
OT Current Status-Daily Note Subjective Pt in bed, agrees to treatment. Mental Status/Objective Therapy Code Descriptions/Definitions Functional [place] Measure: 0=Not Assessed/NA 4=Minimal Assistance 1=Total Assistance 5=Supervision or Setup 2=Maximal Assistance 6=Modified [place] 3=Moderate Assistance 7=Complete [place] ADL-Treatment Pt requests shower this morning. Pt supine to sit with SBA. Sit to stand with SBA. Gait to restroom with FWW. Transfer to toilet with SBA using grab bar for safety. Pt able to complete toileting hygiene and clothing management with SBA. Transfer to walk in shower with CGA for safety. Pt doffed clothing with SBA, uses dressing stick to doff underwear and socks. Seated bathing completed using hand held shower and long handled sponge. SBA for bathing tasks. Don shirt with set up. Pt able to thread LE into underwear and pants using adaptive equipment. Stood with CGA for balance during pant hike. Pt donned socks with SBA and verbal cues using sock aid. Stood at sink to complete grooming tasks. Pt brushed teeth and combed hair with SBA. Pt transferred to chair with close supervision using FWW. Sitting in chair with needs met after session. Therapy Code Descriptions/Definitions Functional [place] Measure: 0=Not Assessed/NA 4=Minimal Assistance 1=Total Assistance 5=Supervision or Setup 2=Maximal Assistance 6=Modified [place] 3=Moderate Assistance 7=Complete [place] Therapy Quality Codes: 6 Independent with activity with or without an assistive device 5 Patient requires set up or clean up by helper. Patient completes activity by themselves 4 Supervision or touching assist (CGA). [place] provide cues , steadying assist 3 The helper provides less than half the effort to complete the activity 2 The helper provides more than half the effort to complete the activity 1 Dependent. The helper does all the effort to complete an activity 7 Patient refused to complete or attempt activity 9 The patient did not perform the activity before the current illness or injury 88 Not attempted due to Medical conditions or safety concerns Grooming (FIM): 5 Bathing (FIM): 5 Shower/Bathe Self (QC): 4 Upper Body (FIM): 5 Upper Body Dressing (QC): 5 Lower Body Dressing (FIM): 4 Lower Body Dressing (QC): 4 Toileting (FIM): 5 Toileting Hygiene (QC): 4 Toilet/Commode Transfer (FIM): 5 Toilet Transfer (QC): 4 Shower Transfer(FIM): 4 OT Short Term Goals Short Term Goals Time Frame: Dec 10, 2018 Bathing(FIM): 4 Lower Body Dressing(FIM): 4 Toileting(FIM): 4 Toilet/Commode Transfer(FIM): 5 Additional Short Term Goals: 1-Demonstrate ADL Tasks, 2-Verbalize Understanding , 3-ImproveStrength/Jennifer 1=Demonstrate adherence to instructed precautions during ADL tasks. 2=Patient will verbalize/demonstrate understanding of assistive devices/ modifications for ADL. 3=Patient will improve strength/tolerance for activity to enable patient to perform ADL's. OT Nailhead Puncher Goals Snf Goals Time Frame: Dec 24, 2018 Eating (FIM): 6 Eating (QC): 6 Groomin Oral Hygiene (QC): 6 Bathing(FIM): 5 Shower/Bathe Self (QC): 5 Upper Body Dressing(FIM): 6 Upper Body Dressing (QC): 6 Lower Body Dressing(FIM): 5 Lower Body Dressing (QC): 5 On/Off Footwear (QC): 6 Toileting(FIM): 6 Toileting Hygiene (QC): 6 Toilet/Commode Transfer(FIM): 6 Toilet/Commode Transfer (QC): 6 Shower Transfer(FIM): 5 Additional Goals: 1-Demonstrate ADL Tasks, 2-Verbalize Understanding, 3- ImproveStrength/Jennifer 1=Demonstrate adherence to instructed precautions during ADL tasks. 2=Patient will verbalize/demonstrate understanding of assistive devices/ modifications for ADL. 3=Patient will improve strength/tolerance for activity to enable patient to perform ADL's. OT Education/Plan Discharge Recommendations Plan/Recommendations: Continue POC Treatment Plan/Plan of Care Patient would benefit from OT for education, treatment and training to promote independence in ADL's, mobility, safety and/or upper extremity function for ADL' s. Plan of Care: ADL Retraining, Functional Mobility, Group Exercise/Act as Ind, UE Funct Exercise/Act Treatment Duration: Dec 24, 2018 Frequency: At least 5 of 7 days/Wk (IRF) Estimated Hrs Per Day: 1.5 hours per day Rehab Potential: Good Time/GCodes Start Time: 09:15 Stop Time: 10:15 Total Time Billed (hr/min): 60 Billed Treatment Time 1 visit, ADLx4(60minutes) LIANG MARIANO OT Dec 07, 2018 11:00
--- NOTE | 2018-12-07 11:56 | Occupational Ther Daily Note ---
OT Current Status-Daily Note Subjective Pt agreeable to therapy. Mental Status/Objective Therapy Code Descriptions/Definitions Functional [place] Measure: 0=Not Assessed/NA 4=Minimal Assistance 1=Total Assistance 5=Supervision or Setup 2=Maximal Assistance 6=Modified [place] 3=Moderate Assistance 7=Complete [place] ADL-Treatment Therapy Code Descriptions/Definitions Functional [place] Measure: 0=Not Assessed/NA 4=Minimal Assistance 1=Total Assistance 5=Supervision or Setup 2=Maximal Assistance 6=Modified [place] 3=Moderate Assistance 7=Complete [place] Therapy Quality Codes: 6 Independent with activity with or without an assistive device 5 Patient requires set up or clean up by helper. Patient completes activity by themselves 4 Supervision or touching assist (CGA). [place] provide cues , steadying assist 3 The helper provides less than half the effort to complete the activity 2 The helper provides more than half the effort to complete the activity 1 Dependent. The helper does all the effort to complete an activity 7 Patient refused to complete or attempt activity 9 The patient did not perform the activity before the current illness or injury 88 Not attempted due to Medical conditions or safety concerns Other Treatment Pt sitting in therapy gym after finishing with PT. Pt completed arm bike [id number] to increase overall strength and activity tolerance needed for functional tasks. Pt completed task with minimal resistance and slow pace. No rest breaks needed. Pt ambulated to room with FWW. Slow pace, but no LOB noted. Bilateral UE exercises completed to increase strength for ADLs and transfers. Pt performed four exercises x10 reps focusing on shoulder and elbow movements. Rest breaks taken between exercises. Pt sitting in chair with needs met after session. OT Short Term Goals Short Term Goals Time Frame: Dec 10, 2018 Bathing(FIM): 4 Lower Body Dressing(FIM): 4 Toileting(FIM): 4 Toilet/Commode Transfer(FIM): 5 Additional Short Term Goals: 1-Demonstrate ADL Tasks, 2-Verbalize Understanding , 3-ImproveStrength/Jennifer 1=Demonstrate adherence to instructed precautions during ADL tasks. 2=Patient will verbalize/demonstrate understanding of assistive devices/ modifications for ADL. 3=Patient will improve strength/tolerance for activity to enable patient to perform ADL's. OT Manager Regional Goals Manager Regional Goals Time Frame: Dec 24, 2018 Eating (FIM): 6 Eating (QC): 6 Groomin Oral Hygiene (QC): 6 Bathing(FIM): 5 Shower/Bathe Self (QC): 5 Upper Body Dressing(FIM): 6 Upper Body Dressing (QC): 6 Lower Body Dressing(FIM): 5 Lower Body Dressing (QC): 5 On/Off Footwear (QC): 6 Toileting(FIM): 6 Toileting Hygiene (QC): 6 Toilet/Commode Transfer(FIM): 6 Toilet/Commode Transfer (QC): 6 Shower Transfer(FIM): 5 Additional Goals: 1-Demonstrate ADL Tasks, 2-Verbalize Understanding, 3- ImproveStrength/Jennifer 1=Demonstrate adherence to instructed precautions during ADL tasks. 2=Patient will verbalize/demonstrate understanding of assistive devices/ modifications for ADL. 3=Patient will improve strength/tolerance for activity to enable patient to perform ADL's. OT Education/Plan Discharge Recommendations Plan/Recommendations: Continue POC Treatment Plan/Plan of Care Patient would benefit from OT for education, treatment and training to promote independence in ADL's, mobility, safety and/or upper extremity function for ADL' s. Plan of Care: ADL Retraining, Functional Mobility, Group Exercise/Act as Ind, UE Funct Exercise/Act Treatment Duration: Dec 24, 2018 Frequency: At least 5 of 7 days/Wk (IRF) Estimated Hrs Per Day: 1.5 hours per day Rehab Potential: Good Time/GCodes Start Time: 11:15 Stop Time: 11:45 Total Time Billed (hr/min): 30 Billed Treatment Time 1 visit, EXx2(30minutes) LIANG MARIANO OT Dec 07, 2018 11:56
--- NOTE | 2018-12-07 12:11 | Physical Therapy Daily Note ---
PT Daily Note-Current Subjective Pt sitting in recliner upon arrival. Pt agrees to PT. Pain Numeric Pain Scale: 5-Moderate Pain Location: Left Location Body Site: Hip Pain Description: Ache Mental Status Patient Orientation: Person, Place, Situation Transfers Therapy Code Descriptions/Definitions Functional [place] Measure: 0=Not Assessed/NA 4=Minimal Assistance 1=Total Assistance 5=Supervision or Setup 2=Maximal Assistance 6=Modified [place] 3=Moderate Assistance 7=Complete [place] Therapy Quality Codes: 6 Independent with activity with or without an assistive device 5 Patient requires set up or clean up by helper. Patient completes activity by themselves 4 Supervision or touching assist (CGA). [place] provide cues , steadying assist 3 The helper provides less than half the effort to complete the activity 2 The helper provides more than half the effort to complete the activity 1 Dependent. The helper does all the effort to complete an activity 7 Patient refused to complete or attempt activity 9 The patient did not perform the activity before the current illness or injury 88 Not attempted due to Medical conditions or safety concerns Scootin Sit to/from Stand: 5 Sit to Stand (QC): 5 Weight Bearing Right Lower Extremity: Right Full Weight Bearing Left Lower Extremity: Left Weight Bearing/Tolerated THR precautions Gait Training Does the Patient Walk?: Yes Distance (FIM): 3=150 ft Distance: 50', 75', 75' Walk 10 feet (QC): 4 Walk 50 ft with 2 Turns(QC): 4 Walk 150 ft (QC): 4 Gait Level of Assist: 4 Gait Persons Needed: 1 Gait Assistive Device: FWW Pt reports dizzy and lightheaded since just finishing with OT shower. Pt rests then able to walk more. Wheelchair Training Does the Pt Use a Wheelchair?: No Exercises Supine Ex: Ankle pumps, Quad Set, Glut sets, Heel Slides, Hip abd/add Supine Reps: 15 NuStep Minutes: 11 NuStep Workload: 1 Treatments Pt ambulates in hallway then uses NuStep for 11m at WL 1 for ROM. Pt completes Supine Ex then after rest ambulates back to room to rest. Pt has all needs met. Assessment Current Status: Good Progress Pt fatigues during ambulation but recovers quickly. PT Short Term Goals Short Term Goals Time Frame: Dec 08, 2018 Gait (FIM): 4 Distance (FIM): 3=150 ft Gait Assistive Device: FWW PT Tank Farm Attendant Goals Jail Goals PT Jail Goals Time Frame: Dec 20, 2018 Transfers (B,C,W/C) (FIM): 6 Sit to Lying (QC): 6 Lying-Sitting on Side/Bed(QC): 6 Sit to Stand (QC): 6 Rollin Roll Left to Right (QC): 6 Chair/Fnm-mm-Cuytl Xfer(QC): 6 Car Transfer (QC): 6 Does the Patient Walk: Yes Gait (FIM): 6 Gait distance (FIM): 3=150 ft Walk 10 feet (QC): 6 Walk 10ft-Uneven Surface(QC): 6 Walk 50ft with 2 Turns (QC): 6 Walk 150 ft (QC): 6 Gait Assistive Device: FWW Does the Pt use WC or Scooter?: No Stairs (FIM): 5 # of Steps: 4 1 Step (curb) (QC): 6 4 Steps (QC): 6 12 Steps (QC): 88 Stairs Level Of Assist: 6 Picking up an Object (QC): 88 PT Plan Problem List Problem List: Activity Tolerance, Functional Strength, Gait Treatment/Plan Treatment Plan: Continue Plan of Care Treatment Plan: Bed Mobility, Education, Functional Activity Jennifer, Functional Strength, Group Therapy, Gait, Safety, Therapeutic Exercise, Transfers Treatment Duration: Dec 20, 2018 Frequency: At least 5 of 7 days/Wk (IRF) Estimated Hrs Per Day: 1.5 hours per day Patient and/or Family Agrees t: Yes Safety Risks/Education Patient Education: Gait Training, Transfer Techniques, Correct Positioning, Safety Issues Teaching Recipient: Patient Teaching Methods: Discussion Response to Teaching: Verbalize Understanding Time/GCodes Time In: 1015 Time Out: 1115 Total Billed Treatment Time: 60 Total Billed Treatment 1, GT x2 (30m) & EX x2 (30m) G Codes Necessary: MELISSA Ortega DIRECTOR OF DEVELOPMENT Dec 07, 2018 12:11
--- NOTE | 2018-12-07 15:00 | NUR ---
ORDER OBTAINED FROM DR. COLLADO TO TAKE ROBERTO OUT TODAY. 23 ROBERTO REMOVED FROM LEFT HIP WITHOUT DIFFICULTY AND STERI STRIPS APPLIED. PATIENT TOLERATED WELL. MEDICATED WITH LORTAB AND BACLOFEN FOR MUSCLE SPASMS.
--- NOTE | 2018-12-07 15:34 | Physical Therapy Daily Note ---
PT Daily Note-Current Subjective Pt sitting in recliner upon arrival. Pt agrees to PT. Pain Numeric Pain Scale: 5-Moderate Pain Location: Left Location Body Site: Hip Pain Description: Ache Mental Status Patient Orientation: Person, Place, Situation Transfers Therapy Code Descriptions/Definitions Functional [place] Measure: 0=Not Assessed/NA 4=Minimal Assistance 1=Total Assistance 5=Supervision or Setup 2=Maximal Assistance 6=Modified [place] 3=Moderate Assistance 7=Complete [place] Therapy Quality Codes: 6 Independent with activity with or without an assistive device 5 Patient requires set up or clean up by helper. Patient completes activity by themselves 4 Supervision or touching assist (CGA). [place] provide cues , steadying assist 3 The helper provides less than half the effort to complete the activity 2 The helper provides more than half the effort to complete the activity 1 Dependent. The helper does all the effort to complete an activity 7 Patient refused to complete or attempt activity 9 The patient did not perform the activity before the current illness or injury 88 Not attempted due to Medical conditions or safety concerns Scootin Rollin Supine to/from Sit: 4 Sit to/from Stand: 5 Sit to Lying (QC): 4 Sit to Stand (QC): 5 Weight Bearing Right Lower Extremity: Right Full Weight Bearing Left Lower Extremity: Left Weight Bearing/Tolerated THR precautions Gait Training Does the Patient Walk?: Yes Distance (FIM): 3=150 ft Distance: 150' Walk 10 feet (QC): 5 Walk 50 ft with 2 Turns(QC): 5 Walk 150 ft (QC): 5 Gait Level of Assist: 5 Gait Persons Needed: 1 Gait Assistive Device: FWW Pt walks with slow edwrado. Wheelchair Training Does the Pt Use a Wheelchair?: No Treatments Pt ambulates in hallway before returning to room to use restroom. Pt returns to Supine in bed at end of tx with all needs met. Assessment Current Status: Good Progress Pt is fatigued by end of tx. PT Short Term Goals Short Term Goals Time Frame: Dec 08, 2018 Gait (FIM): 4 Distance (FIM): 3=150 ft Gait Assistive Device: FWW PT Detention Goals Detention Goals PT Detention Goals Time Frame: Dec 20, 2018 Transfers (B,C,W/C) (FIM): 6 Sit to Lying (QC): 6 Lying-Sitting on Side/Bed(QC): 6 Sit to Stand (QC): 6 Rollin Roll Left to Right (QC): 6 Chair/Hgw-sk-Zevnk Xfer(QC): 6 Car Transfer (QC): 6 Does the Patient Walk: Yes Gait (FIM): 6 Gait distance (FIM): 3=150 ft Walk 10 feet (QC): 6 Walk 10ft-Uneven Surface(QC): 6 Walk 50ft with 2 Turns (QC): 6 Walk 150 ft (QC): 6 Gait Assistive Device: FWW Does the Pt use WC or Scooter?: No Stairs (FIM): 5 # of Steps: 4 1 Step (curb) (QC): 6 4 Steps (QC): 6 12 Steps (QC): 88 Stairs Level Of Assist: 6 Picking up an Object (QC): 88 PT Plan Problem List Problem List: Activity Tolerance, Functional Strength, Gait, Transfer Treatment/Plan Treatment Plan: Continue Plan of Care Treatment Plan: Bed Mobility, Education, Functional Activity Jennifer, Functional Strength, Group Therapy, Gait, Safety, Therapeutic Exercise, Transfers Treatment Duration: Dec 20, 2018 Frequency: At least 5 of 7 days/Wk (IRF) Estimated Hrs Per Day: 1.5 hours per day Patient and/or Family Agrees t: Yes Safety Risks/Education Patient Education: Gait Training, Transfer Techniques, Correct Positioning, Safety Issues Teaching Recipient: Patient Teaching Methods: Discussion Response to Teaching: Verbalize Understanding Time/GCodes Time In: 1400 Time Out: 1430 Total Billed Treatment 1, GT (15m) & FA (15m) G Codes Necessary: MELISSA Ortega PAINT FORMULATOR Dec 07, 2018 15:34
[2018-12-07 17:15] VITALS: BP 114/56
[2018-12-07 17:18] VITALS: BP 110/61
[2018-12-08 05:49] LABS: BASOPHILS # (AUTO) 0.1 10^3/uL (0.0-0.1); BASOPHILS % (AUTO) 1 % (0-10); EOSINOPHILS # (AUTO) 0.9 10^3/uL (0.0-0.3); EOSINOPHILS % (AUTO) 13 % (0-10); HEMATOCRIT 30 % (35-52); HEMOGLOBIN 9.8 G/DL (11.5-16.0); LYMPHOCYTES # (AUTO) 1.8 X 10^3 (1.0-4.0); LYMPHOCYTES % (AUTO) 25 % (12-44); MEAN CORPUSCULAR HEMOGLOBIN 32 PG (25-34); MEAN CORPUSCULAR HGB CONC 33 G/DL (32-36); MEAN CORPUSCULAR VOLUME 98 FL (80-99); MEAN PLATELET VOLUME 8.8 FL (7.4-10.4); MONOCYTES # (AUTO) 0.9 X 10^3 (0.0-1.0); MONOCYTES % (AUTO) 12 % (0-12); NEUTROPHILS # (AUTO) 3.6 X 10^3 (1.8-7.8); NEUTROPHILS % (AUTO) 50 % (42-75); PLATELET COUNT 379 10^3/uL (130-400); RED CELL DISTRIBUTION WIDTH 12.6 % (10.0-14.5); WHITE BLOOD COUNT 7.3 10^3/uL (4.3-11.0)
[2018-12-08] MEDS: HYDROcodone/APAP 10 MG/325 MG (LORTAB) TAB PO PRN ×4 (05:58→21:14)
[2018-12-08] MEDS: BACLOFEN 10 MG (LIORESAL) TAB PO PRN ×4 (06:04→21:14)
[2018-12-08 06:11] VITALS: BP 143/74
[2018-12-08 06:13] LABS: ALANINE AMINOTRANSFERASE 17 U/L (0-55); ALBUMIN 2.8 GM/DL (3.2-4.5); ALKALINE PHOSPHATASE 67 U/L (40-136); BILIRUBIN,TOTAL 0.4 MG/DL (0.1-1.0); BUN/CREATININE RATIO 17; CALCIUM 8.7 MG/DL (8.5-10.1); CARBON DIOXIDE 26 MMOL/L (21-32); CHLORIDE 108 MMOL/L (98-107); CREATININE SERUM 0.64 MG/DL (0.60-1.30); GFR ESTIMATED > 60; GLUCOSE 90 MG/DL (70-105); POTASSIUM 3.8 MMOL/L (3.6-5.0); SODIUM 144 MMOL/L (135-145); TOTAL PROTEIN 5.1 GM/DL (6.4-8.2)
[2018-12-08] MEDS: SENNA W/DOCUSATE (SENOKOT S) TABLET PO SCH ×2 (07:51→21:14)
[2018-12-08] MEDS: ENOXAPARIN 30 MG/0.3 ML (LOVENOX) SYR SC SCH (07:52)
[2018-12-08] MEDS: ASPIRIN E.C. 325 MG (ECOTRIN) TABLET PO SCH (07:52)
[2018-12-08] MEDS: guaiFENesin (MUCINEX) 600 MG TAB PO SCH ×2 (07:52→21:13)
[2018-12-08] MEDS: prednisoLONE 1% OPTH (PRED FORTE) 5 ML BTL OP SCH (07:52)
--- NOTE | 2018-12-08 08:57 | PM&R Progress Note ---
Subjective HPI/CC On Admission Date Seen by Provider: Dec 08, 2018 Time Seen by Provider: 08:30 CC: Debility following left hip fracture HPI: This is a healthy 88yoWF who presents to the IRF for intensive therapy after suffering a left hip fracture sustained in a fall at home and undergoing an uncomplicated hip fracture by Dr Hartley. Patient is healthy ordinarily and resides at home with family involvement and intends to return home at e completion of IRF protocol. Currently she reports the pain is controlled and labs and meds were reviewed and no major concerns identified. Cath was DC and bowels will be monitored since she had diarrhea prior to admit and that was the reason she was so weak and suffered a fall at home. Patient is participating with therapies on 4th floor and overall has no limitations for admit to IRF. Subjective/Events-last exam Increase Baclofen of 10mg QID has helped tremendously Bowels are moving Overall participating in therapies and doing everything that is asked of her Family requesting usp placement skilled care at DC but it appears she might a good candidate for assisted living although it was planned for DC home when she was first admitted to inpatient rehab when she was on med surg after the left hip fracture Labs reviewed Review of Systems General: Fatigue Musculoskeletal: leg pain Objective Exam Vital Signs Vital Signs Date Time Temp Pulse Resp B/P (MAP) Pulse Ox O2 Delivery O2 Flow Rate FiO2 12/08/18 16:53 98.4 83 20 155/76 (102) 96 Room Air Capillary Refill : General Appearance: No Apparent Distress, WD/WN, Chronically ill, Thin, Other ( frail) HEENT: PERRL/EOMI, Normal ENT Inspection, Pharynx Normal, Moist Mucous Membranes Neck: Full Range of Motion, Normal Inspection, Non Tender, Supple Respiratory: Chest Non Tender, Lungs Clear, Normal Breath Sounds, No Accessory Muscle Use, No Respiratory Distress Cardiovascular: Regular Rate, Rhythm, No Edema, No Gallop, No JVD, No Murmur Gastrointestinal: Normal Bowel Sounds, No Organomegaly, No Pulsatile Mass, Non Tender, Soft Back: Normal Inspection, No CVA Tenderness, No Vertebral Tenderness Extremity: Normal Capillary Refill, Normal Inspection, Normal Range of Motion ( except left leg), Non Tender, No Calf Tenderness, No Pedal Edema Neurologic/Psychiatric: Alert, Oriented x3, No Motor/Sensory Deficits, Normal Mood/Affect Skin: Normal Color, Warm/Dry Lymphatic: No Adenopathy Results/Procedures Lab Laboratory Tests 12/08/18 05:40 Patient resulted labs reviewed. Assessment/Plan Assessment and Plan Assess & Plan/Chief Complaint Assessment: Debility following a left femoral neck fracture Fall at home s/p dehydration from diarrhea Corneal transplant in the past Post op anemia Constipation acute now resolved Plan: Monitor labs Home meds Lovenox IRF BM regimen prn Baclofen increased to 10mg PO QID NHP? (1) Hip fracture (2) Advanced age (3) Anemia due to acute blood loss (4) Corneal transplant status Clinical Quality Measures DVT/VTE Risk/Contraindication: Risk Factor Score Per Nursin RFS Level Per Nursing on Admit: 4+=Very High MICHELLE LARSON DO Dec 08, 2018 08:57
--- NOTE | 2018-12-08 09:53 | NUR ---
Patient states that pain is improved since increasing Baclofen dosage.
--- NOTE | 2018-12-08 12:13 | Physical Therapy Daily Note ---
PT Daily Note-Current Subjective Pt. states her pain escalated during rx to 9/10 in left hip as spasms. Pt. seems resistive somewhat to returning home and states she feels she will need 2 more weeks here and may DC to [facility] as her dtr as indicated this. Pain Numeric Pain Scale: 9 Location: Left Location Body Site: Hip Pain Description: Tightness Mental Status Patient Orientation: Normal For Age Transfers Therapy Code Descriptions/Definitions Functional [place] Measure: 0=Not Assessed/NA 4=Minimal Assistance 1=Total Assistance 5=Supervision or Setup 2=Maximal Assistance 6=Modified [place] 3=Moderate Assistance 7=Complete [place] Therapy Quality Codes: 6 Independent with activity with or without an assistive device 5 Patient requires set up or clean up by helper. Patient completes activity by themselves 4 Supervision or touching assist (CGA). [place] provide cues , steadying assist 3 The helper provides less than half the effort to complete the activity 2 The helper provides more than half the effort to complete the activity 1 Dependent. The helper does all the effort to complete an activity 7 Patient refused to complete or attempt activity 9 The patient did not perform the activity before the current illness or injury 88 Not attempted due to Medical conditions or safety concerns Transfers (B, C, W/C) (FIM): 6 Scootin Rollin Supine to/from Sit: 6 Sit to/from Stand: 6 Bed to/from Chair: 6 car TRF SBA Weight Bearing Right Lower Extremity: Right Full Weight Bearing Left Lower Extremity: Left Weight Bearing/Tolerated THR precautions Gait Training Does the Patient Walk?: Yes Gait (FIM): 5 Distance (FIM): 3=150 ft (170x2 ,50) Gait Level of Assist: 5 Gait Persons Needed: 1 Gait Assistive Device: FWW instruction for step length etc Stair Training Stair Training: Handrails/: 1 handrail Stairs (FIM): 2 #of Steps: 4 Stairs: Pattern: Step to Level of Assist: 4 pt. had pain c/o during descending steps when wt bearing on left Exercises Supine Ex: Ankle pumps, Quad Set, Rolling, Glut sets, Heel Slides, Short Arc Quads, Scooting, Straight leg raise (5x2), Hip abd/add Supine Reps: 15 Seated Therapy Exercises: Ankle pumps, Sit to stand, Long arc quads Seated Reps: 15 NuStep Minutes: 12 NuStep Workload: 1 Treatments toileted indep Assessment Current Status: Good Progress PT Short Term Goals Short Term Goals Time Frame: Dec 08, 2018 Gait (FIM): 4 Distance (FIM): 3=150 ft Gait Assistive Device: FWW PT Intermediate Goals Intermediate Goals PT Etcher Apprentice Photoengraving Goals Time Frame: Dec 20, 2018 Transfers (B,C,W/C) (FIM): 6 Sit to Lying (QC): 6 Lying-Sitting on Side/Bed(QC): 6 Sit to Stand (QC): 6 Rollin Roll Left to Right (QC): 6 Chair/Tbt-av-Sgdhn Xfer(QC): 6 Car Transfer (QC): 6 Does the Patient Walk: Yes Gait (FIM): 6 Gait distance (FIM): 3=150 ft Walk 10 feet (QC): 6 Walk 10ft-Uneven Surface(QC): 6 Walk 50ft with 2 Turns (QC): 6 Walk 150 ft (QC): 6 Gait Assistive Device: FWW Does the Pt use WC or Scooter?: No Stairs (FIM): 5 # of Steps: 4 1 Step (curb) (QC): 6 4 Steps (QC): 6 12 Steps (QC): 88 Stairs Level Of Assist: 6 Picking up an Object (QC): 88 PT Plan Treatment/Plan Treatment Plan: Continue Plan of Care Treatment Plan: Bed Mobility, Education, Functional Activity Jennifer, Functional Strength, Group Therapy, Gait, Safety, Therapeutic Exercise, Transfers Treatment Duration: Dec 20, 2018 Frequency: At least 5 of 7 days/Wk (IRF) Estimated Hrs Per Day: 1.5 hours per day Patient and/or Family Agrees t: Yes Safety Risks/Education Patient Education: Gait Training, Transfer Techniques, Steps, Correct Positioning, Disease Process, Safety Issues Teaching Recipient: Patient Teaching Methods: Demonstration, Discussion Response to Teaching: Verbalize Understanding, Return Demonstration, Reinforcement Needed Time/GCodes Time In: 1045 Time Out: 1115 Total Billed Treatment Time: 90 Total Billed Treatment 1,FA45m,GT20m,EX25m G Codes Necessary: JUAN Bhakta SUPERVISOR [employer] Dec 08, 2018 12:13
--- NOTE | 2018-12-08 12:46 | Occupational Ther Daily Note ---
OT Current Status-Daily Note Subjective Pt in bed, agrees to therapy. Pt states she got up early this morning and is tired. Mental Status/Objective Therapy Code Descriptions/Definitions Functional [place] Measure: 0=Not Assessed/NA 4=Minimal Assistance 1=Total Assistance 5=Supervision or Setup 2=Maximal Assistance 6=Modified [place] 3=Moderate Assistance 7=Complete [place] ADL-Treatment Supine to sit with SBA. Pt requests shower this morning. Sit to stand with modified independence. Gait to restroom with FWW. Transfer to toilet with SBA. Pt able to complete toileting hygiene and clothing management with SBA. Transfer to walk in shower with SBA. Seated bathing completed using hand held shower and long handled sponge. Pt able to wash/dry all areas with SBA using AE as needed. Don button up shirt with set up. Pt used AE to start underwear and pants over feet with verbal cues for use. Don socks with SBA using sock aid. Pt stood at sink to brush teeth and comb hair with modified independence. Rest break taken after completion of ADLs. Therapy Code Descriptions/Definitions Functional [place] Measure: 0=Not Assessed/NA 4=Minimal Assistance 1=Total Assistance 5=Supervision or Setup 2=Maximal Assistance 6=Modified [place] 3=Moderate Assistance 7=Complete [place] Therapy Quality Codes: 6 Independent with activity with or without an assistive device 5 Patient requires set up or clean up by helper. Patient completes activity by themselves 4 Supervision or touching assist (CGA). [place] provide cues , steadying assist 3 The helper provides less than half the effort to complete the activity 2 The helper provides more than half the effort to complete the activity 1 Dependent. The helper does all the effort to complete an activity 7 Patient refused to complete or attempt activity 9 The patient did not perform the activity before the current illness or injury 88 Not attempted due to Medical conditions or safety concerns Grooming (FIM): 6 Oral Hygiene (QC): 6 Bathing (FIM): 5 Shower/Bathe Self (QC): 4 Upper Body (FIM): 5 Upper Body Dressing (QC): 5 Lower Body Dressing (FIM): 5 Lower Body Dressing (QC): 4 On/Off Footwear (QC): 4 Toileting (FIM): 5 Toileting Hygiene (QC): 4 Toilet/Commode Transfer (FIM): 5 Toilet Transfer (QC): 4 Shower Transfer(FIM): 5 Other Treatment Gait to therapy gym with FWW, slow pace. Arm bike x12 minutes to increase overall strength and activity tolerance needed for functional tasks. Pt completed task with minimal resistance and slow pace. No rest breaks needed. Pt completed peg activity with bilateral UE with 1# weights in place to increase strength for ADLs and transfers. Pt completed task with increased time. Pt returned to room, transferred to bed with SBA. Resting in bed with needs met after session. OT Short Term Goals Short Term Goals Time Frame: Dec 10, 2018 Bathing(FIM): 4 Lower Body Dressing(FIM): 4 Toileting(FIM): 4 Toilet/Commode Transfer(FIM): 5 Additional Short Term Goals: 1-Demonstrate ADL Tasks, 2-Verbalize Understanding , 3-ImproveStrength/Jennifer 1=Demonstrate adherence to instructed precautions during ADL tasks. 2=Patient will verbalize/demonstrate understanding of assistive devices/ modifications for ADL. 3=Patient will improve strength/tolerance for activity to enable patient to perform ADL's. OT Nut Former Goals Long-Term Goals Time Frame: Dec 24, 2018 Eating (FIM): 6 Eating (QC): 6 Groomin Oral Hygiene (QC): 6 Bathing(FIM): 5 Shower/Bathe Self (QC): 5 Upper Body Dressing(FIM): 6 Upper Body Dressing (QC): 6 Lower Body Dressing(FIM): 5 Lower Body Dressing (QC): 5 On/Off Footwear (QC): 6 Toileting(FIM): 6 Toileting Hygiene (QC): 6 Toilet/Commode Transfer(FIM): 6 Toilet/Commode Transfer (QC): 6 Shower Transfer(FIM): 5 Additional Goals: 1-Demonstrate ADL Tasks, 2-Verbalize Understanding, 3- ImproveStrength/Jennifer 1=Demonstrate adherence to instructed precautions during ADL tasks. 2=Patient will verbalize/demonstrate understanding of assistive devices/ modifications for ADL. 3=Patient will improve strength/tolerance for activity to enable patient to perform ADL's. OT Education/Plan Discharge Recommendations Plan/Recommendations: Continue POC Treatment Plan/Plan of Care Patient would benefit from OT for education, treatment and training to promote independence in ADL's, mobility, safety and/or upper extremity function for ADL' s. Plan of Care: ADL Retraining, Functional Mobility, Group Exercise/Act as Ind, UE Funct Exercise/Act Treatment Duration: Dec 24, 2018 Frequency: At least 5 of 7 days/Wk (IRF) Estimated Hrs Per Day: 1.5 hours per day Rehab Potential: Good Time/GCodes Start Time: 09:00 Stop Time: 10:30 Total Time Billed (hr/min): 90 Billed Treatment Time 1 visit, ADLx3(50minutes), EXx3(40minutes) LIANG MARIANO OT Dec 08, 2018 12:46
--- NOTE | 2018-12-08 15:55 | NUR ---
FELLER BUNCHER OPERATOR was approached by patient's daughter in regards to discharge planning. FELLER BUNCHER OPERATOR reviewed Team Conference information with her, as patient was resting. Daughter has consistently offered solution of SNF placement at discharge, rather than patient returning home. Due to current level of function with Supervision with most tasks, team recommends patient's progress be re-evaluated on Thursday (12/13) to determine appropriate discharge plan. With additional support, patient would be appropriate to return home vs stay with family vs. [facility]. Patient's daughter expressed interest in patient residing with her for a few weeks upon discharge. FELLER BUNCHER OPERATOR also recommended discussion regarding senior housing, SENIOR LIVING or downsizing as an appropriate family conversation. FELLER BUNCHER OPERATOR will meet with patient tomorrow to review Team Conference Summary.
[2018-12-08 16:53] VITALS: BP 155/76
[2018-12-09] MEDS: BACLOFEN 10 MG (LIORESAL) TAB PO PRN ×3 (03:45→20:07)
[2018-12-09] MEDS: HYDROcodone/APAP 10 MG/325 MG (LORTAB) TAB PO PRN ×3 (03:46→20:07)
[2018-12-09 05:08] VITALS: BP 153/75
--- NOTE | 2018-12-09 08:40 | PM&R Progress Note ---
Subjective HPI/CC On Admission Date Seen by Provider: Dec 09, 2018 Time Seen by Provider: 08:45 CC: Debility following left hip fracture HPI: This is a healthy 88yoWF who presents to the IRF for intensive therapy after suffering a left hip fracture sustained in a fall at home and undergoing an uncomplicated hip fracture by Dr Hartley. Patient is healthy ordinarily and resides at home with family involvement and intends to return home at e completion of IRF protocol. Currently she reports the pain is controlled and labs and meds were reviewed and no major concerns identified. Cath was DC and bowels will be monitored since she had diarrhea prior to admit and that was the reason she was so weak and suffered a fall at home. Patient is participating with therapies on 4th floor and overall has no limitations for admit to IRF. Subjective/Events-last exam Increase Baclofen of 10mg QID has helped tremendouslyand minimizing other pain meds but she still reports slow moving due to pain Bowels are moving Overall participating in therapies and doing everything that is asked of her Skilled care getting arranged Labs reviewed Review of Systems General: Fatigue Musculoskeletal: leg pain Objective Exam Vital Signs Vital Signs Date Time Temp Pulse Resp B/P (MAP) Pulse Ox O2 Delivery O2 Flow Rate FiO2 12/09/18 09:00 Room Air 12/09/18 05:08 97.8 88 18 153/75 (101) 96 Capillary Refill : General Appearance: No Apparent Distress, WD/WN, Chronically ill, Thin, Other ( frail) HEENT: PERRL/EOMI, Normal ENT Inspection, Pharynx Normal, Moist Mucous Membranes Neck: Full Range of Motion, Normal Inspection, Non Tender, Supple Respiratory: Chest Non Tender, Lungs Clear, Normal Breath Sounds, No Accessory Muscle Use, No Respiratory Distress Cardiovascular: Regular Rate, Rhythm, No Edema, No Gallop, No JVD, No Murmur Gastrointestinal: Normal Bowel Sounds, No Organomegaly, No Pulsatile Mass, Non Tender, Soft Back: Normal Inspection, No CVA Tenderness, No Vertebral Tenderness Extremity: Normal Capillary Refill, Normal Inspection, Normal Range of Motion ( except left leg), Non Tender, No Calf Tenderness, No Pedal Edema Neurologic/Psychiatric: Alert, Oriented x3, No Motor/Sensory Deficits, Normal Mood/Affect Skin: Normal Color, Warm/Dry Lymphatic: No Adenopathy Results/Procedures Lab Patient resulted labs reviewed. Assessment/Plan Assessment and Plan Assess & Plan/Chief Complaint Assessment: Debility following a left femoral neck fracture Fall at home s/p dehydration from diarrhea Corneal transplant in the past Post op anemia Constipation acute now resolved Plan: Monitor labs Home meds Lovenox IRF BM regimen prn Baclofen increased to 10mg PO QID NHP at DC (1) Hip fracture (2) Advanced age (3) Anemia due to acute blood loss (4) Corneal transplant status Clinical Quality Measures DVT/VTE Risk/Contraindication: Risk Factor Score Per Nursin RFS Level Per Nursing on Admit: 4+=Very High MICHELLE LARSON DO Dec 09, 2018 08:40
[2018-12-09] MEDS: prednisoLONE 1% OPTH (PRED FORTE) 5 ML BTL OP SCH (08:44)
[2018-12-09] MEDS: SENNA W/DOCUSATE (SENOKOT S) TABLET PO SCH ×3 (08:44→19:52)
[2018-12-09] MEDS: ASPIRIN E.C. 325 MG (ECOTRIN) TABLET PO SCH (08:45)
[2018-12-09] MEDS: guaiFENesin (MUCINEX) 600 MG TAB PO SCH ×2 (08:45→20:07)
[2018-12-09] MEDS: ENOXAPARIN 30 MG/0.3 ML (LOVENOX) SYR SC SCH (08:46)
[2018-12-09 09:22] VITALS: BP 171/78
--- NOTE | 2018-12-09 09:22 | NUR ---
Pt working with therapy and c/o feeling "weak and shaky". BP 171/78, P 77. Pt states her BP always runs high in clinic or hospital. States at home she runs low. Pt had not eaten and states nothing sounds good. She agreed to try some apple Sauce and ate a serving.
--- NOTE | 2018-12-09 09:36 | Occupational Ther Daily Note ---
OT Current Status-Daily Note Subjective Pt states that she is feeling weak and shaky today. Notified nrsg, BP taken 171 /77. Pain, not bad per pt "not like it usually is". Mental Status/Objective Patient Orientation: Person, Place, Time, Situation Therapy Code Descriptions/Definitions Functional [place] Measure: 0=Not Assessed/NA 4=Minimal Assistance 1=Total Assistance 5=Supervision or Setup 2=Maximal Assistance 6=Modified [place] 3=Moderate Assistance 7=Complete [place] ADL-Treatment Pt took increased time to complete tasks due to frequent break and weakness. CGA for supine to sitting with HOB elevated. Pt dizzy sitting EOB, short break needed. Pt ambulated from bed to recliner with CGA for safety using FWW. Attempted to get pt to order breakfast, but declined stating nothing sounds good. Encouraged pt to eat crackers and apple sauce, pt complied. Pt stated that she still felt weak, retook BP 177/91 reported to nrsg. Pt able to complete sponge bath with frequent breaks. Donned shirt by self after set up. Assistance with lower body dressing due to weak and increased BP. Pt then ambulated back to bed and was able to lay down in bed with CGA. Completed grooming in bed after given supplies. After therapy, pt lying in bed with call light/phone in reach. All needs met in room. Therapy Code Descriptions/Definitions Functional [place] Measure: 0=Not Assessed/NA 4=Minimal Assistance 1=Total Assistance 5=Supervision or Setup 2=Maximal Assistance 6=Modified [place] 3=Moderate Assistance 7=Complete [place] Therapy Quality Codes: 6 Independent with activity with or without an assistive device 5 Patient requires set up or clean up by helper. Patient completes activity by themselves 4 Supervision or touching assist (CGA). [place] provide cues , steadying assist 3 The helper provides less than half the effort to complete the activity 2 The helper provides more than half the effort to complete the activity 1 Dependent. The helper does all the effort to complete an activity 7 Patient refused to complete or attempt activity 9 The patient did not perform the activity before the current illness or injury 88 Not attempted due to Medical conditions or safety concerns Grooming (FIM): 5 Oral Hygiene (QC): 5 Upper Body (FIM): 5 Upper Body Dressing (QC): 5 OT Short Term Goals Short Term Goals Time Frame: Dec 10, 2018 Bathing(FIM): 4 Lower Body Dressing(FIM): 4 Toileting(FIM): 4 Toilet/Commode Transfer(FIM): 5 Additional Short Term Goals: 1-Demonstrate ADL Tasks, 2-Verbalize Understanding , 3-ImproveStrength/Jennifer 1=Demonstrate adherence to instructed precautions during ADL tasks. 2=Patient will verbalize/demonstrate understanding of assistive devices/ modifications for ADL. 3=Patient will improve strength/tolerance for activity to enable patient to perform ADL's. OT Halfway Goals Halfway Goals Time Frame: Dec 24, 2018 Eating (FIM): 6 Eating (QC): 6 Groomin Oral Hygiene (QC): 6 Bathing(FIM): 5 Shower/Bathe Self (QC): 5 Upper Body Dressing(FIM): 6 Upper Body Dressing (QC): 6 Lower Body Dressing(FIM): 5 Lower Body Dressing (QC): 5 On/Off Footwear (QC): 6 Toileting(FIM): 6 Toileting Hygiene (QC): 6 Toilet/Commode Transfer(FIM): 6 Toilet/Commode Transfer (QC): 6 Shower Transfer(FIM): 5 Additional Goals: 1-Demonstrate ADL Tasks, 2-Verbalize Understanding, 3- ImproveStrength/Jennifer 1=Demonstrate adherence to instructed precautions during ADL tasks. 2=Patient will verbalize/demonstrate understanding of assistive devices/ modifications for ADL. 3=Patient will improve strength/tolerance for activity to enable patient to perform ADL's. OT Education/Plan Discharge Recommendations Plan/Recommendations: Continue POC Treatment Plan/Plan of Care Patient would benefit from OT for education, treatment and training to promote independence in ADL's, mobility, safety and/or upper extremity function for ADL' s. Plan of Care: ADL Retraining, Functional Mobility, Group Exercise/Act as Ind, UE Funct Exercise/Act Treatment Duration: Dec 24, 2018 Frequency: At least 5 of 7 days/Wk (IRF) Estimated Hrs Per Day: 1.5 hours per day Rehab Potential: Good Time/GCodes Start Time: 09:15 Stop Time: 10:15 Total Time Billed (hr/min): 60 Billed Treatment Time 1 visit-ADL 4 (60 min) JAMIE NELSON Dec 09, 2018 09:36
[2018-12-09 09:42] VITALS: BP 177/91
--- NOTE | 2018-12-09 09:45 | NUR ---
Pt state she is not feeling as shaky, but continues to have weakness. Working with therapy. BP 177/91, P 90.
[2018-12-09 10:45] VITALS: BP 133/53
--- NOTE | 2018-12-09 10:45 | NUR ---
Pt in bed, talking with son. States she is still feeling weak and shaky. RN encouraged her to order something for lunch. BP 133/53, P 76.
--- NOTE | 2018-12-09 12:00 | NUR ---
Pt feeling weak and shaky while ambulating in [place] with therapy. BS 85
--- NOTE | 2018-12-09 12:09 | Physical Therapy Daily Note ---
PT Daily Note-Current Subjective Pt. states she just doesnt feel well today, c/o she is weak, no appetite and feels hot and weaker when on her feet. Nursing present and helped assess pt. Pain Numeric Pain Scale: 6 Location: Left Location Body Site: Hip Pain Description: Ache Appearance pale, frail, weak Mental Status Patient Orientation: Person, Place, Time, Situation Transfers Therapy Code Descriptions/Definitions Functional [place] Measure: 0=Not Assessed/NA 4=Minimal Assistance 1=Total Assistance 5=Supervision or Setup 2=Maximal Assistance 6=Modified [place] 3=Moderate Assistance 7=Complete [place] Therapy Quality Codes: 6 Independent with activity with or without an assistive device 5 Patient requires set up or clean up by helper. Patient completes activity by themselves 4 Supervision or touching assist (CGA). [place] provide cues , steadying assist 3 The helper provides less than half the effort to complete the activity 2 The helper provides more than half the effort to complete the activity 1 Dependent. The helper does all the effort to complete an activity 7 Patient refused to complete or attempt activity 9 The patient did not perform the activity before the current illness or injury 88 Not attempted due to Medical conditions or safety concerns Transfers (B, C, W/C) (FIM): 5 Scootin Rollin Supine to/from Sit: 5 Sit to/from Stand: 5 Bed to/from Chair: 5 Weight Bearing Right Lower Extremity: Right Full Weight Bearing Left Lower Extremity: Left Weight Bearing/Tolerated THR precautions Gait Training Does the Patient Walk?: Yes Gait (FIM): 2 Distance (FIM): 6=438-93 ft (100x3,50x2) Gait Level of Assist: 5 Gait Persons Needed: 1 Gait Assistive Device: FWW pt. c/o she cant walk very far and needs to rest. pt. appears to be nervous and anxious during therapy, this CRIMP SETTER assuring her she is safe etc Exercises Supine Ex: Ankle pumps, Quad Set, Rolling, Glut sets, Heel Slides, Short Arc Quads, Scooting, Straight leg raise, Hip abd/add Supine Reps: 10 (x2) Seated Therapy Exercises: Ankle pumps, Sit to stand, Long arc quads, Hip abd/ add Seated Reps: 12 Treatments toileted with SBA Assessment Current Status: Good Progress PT Short Term Goals Short Term Goals Time Frame: Dec 08, 2018 Gait (FIM): 4 Distance (FIM): 3=150 ft Gait Assistive Device: FWW PT [facility] Goals International Controller Goals PT International Controller Goals Time Frame: Dec 20, 2018 Transfers (B,C,W/C) (FIM): 6 Sit to Lying (QC): 6 Lying-Sitting on Side/Bed(QC): 6 Sit to Stand (QC): 6 Rollin Roll Left to Right (QC): 6 Chair/Dxb-em-Iyocm Xfer(QC): 6 Car Transfer (QC): 6 Does the Patient Walk: Yes Gait (FIM): 6 Gait distance (FIM): 3=150 ft Walk 10 feet (QC): 6 Walk 10ft-Uneven Surface(QC): 6 Walk 50ft with 2 Turns (QC): 6 Walk 150 ft (QC): 6 Gait Assistive Device: FWW Does the Pt use WC or Scooter?: No Stairs (FIM): 5 # of Steps: 4 1 Step (curb) (QC): 6 4 Steps (QC): 6 12 Steps (QC): 88 Stairs Level Of Assist: 6 Picking up an Object (QC): 88 PT Plan Treatment/Plan Treatment Plan: Continue Plan of Care Treatment Plan: Bed Mobility, Education, Functional Activity Jennifer, Functional Strength, Group Therapy, Gait, Safety, Therapeutic Exercise, Transfers Treatment Duration: Dec 20, 2018 Frequency: At least 5 of 7 days/Wk (IRF) Estimated Hrs Per Day: 1.5 hours per day Patient and/or Family Agrees t: Yes Safety Risks/Education Patient Education: Gait Training, Transfer Techniques, Correct Positioning, Disease Process, Safety Issues Teaching Recipient: Patient Teaching Methods: Demonstration, Discussion Response to Teaching: Verbalize Understanding, Return Demonstration, Reinforcement Needed Time/GCodes Time In: 1115 Time Out: 1215 Total Billed Treatment Time: 60 Total Billed Treatment 1,EX25m,GT20m, FA15m G Codes Necessary: JUAN Bhakta CRIMP SETTER Dec 09, 2018 12:09
--- NOTE | 2018-12-09 13:26 | Occupational Ther Daily Note ---
OT Current Status-Daily Note Subjective Pt alert, lying in bed. Pt agrees to therapy. No c/o pain at this time. Mental Status/Objective Patient Orientation: Person, Place, Time, Situation Therapy Code Descriptions/Definitions Functional [place] Measure: 0=Not Assessed/NA 4=Minimal Assistance 1=Total Assistance 5=Supervision or Setup 2=Maximal Assistance 6=Modified [place] 3=Moderate Assistance 7=Complete [place] ADL-Treatment Therapy Code Descriptions/Definitions Functional [place] Measure: 0=Not Assessed/NA 4=Minimal Assistance 1=Total Assistance 5=Supervision or Setup 2=Maximal Assistance 6=Modified [place] 3=Moderate Assistance 7=Complete [place] Therapy Quality Codes: 6 Independent with activity with or without an assistive device 5 Patient requires set up or clean up by helper. Patient completes activity by themselves 4 Supervision or touching assist (CGA). [place] provide cues , steadying assist 3 The helper provides less than half the effort to complete the activity 2 The helper provides more than half the effort to complete the activity 1 Dependent. The helper does all the effort to complete an activity 7 Patient refused to complete or attempt activity 9 The patient did not perform the activity before the current illness or injury 88 Not attempted due to Medical conditions or safety concerns Other Treatment Pt had just finished eating lunch. Pt appears to feel better this afternoon. Supine to sitting with HOB elevated and using grabbars with SBA. Pt ambulated to therapy gym with 1 long recovery break using FWW. Arm bike completed 12 min at 15 ascencio resistance to increase strength and activity tolerance for daily functional tasks. Pt then ambulating back to room with 1 recovery break and PT took over care of pt. All needs met. OT Short Term Goals Short Term Goals Time Frame: Dec 10, 2018 Bathing(FIM): 4 Lower Body Dressing(FIM): 4 Toileting(FIM): 4 Toilet/Commode Transfer(FIM): 5 Additional Short Term Goals: 1-Demonstrate ADL Tasks, 2-Verbalize Understanding , 3-ImproveStrength/Jennifer 1=Demonstrate adherence to instructed precautions during ADL tasks. 2=Patient will verbalize/demonstrate understanding of assistive devices/ modifications for ADL. 3=Patient will improve strength/tolerance for activity to enable patient to perform ADL's. OT Intermediate Goals Intermediate Goals Time Frame: Dec 24, 2018 Eating (FIM): 6 Eating (QC): 6 Groomin Oral Hygiene (QC): 6 Bathing(FIM): 5 Shower/Bathe Self (QC): 5 Upper Body Dressing(FIM): 6 Upper Body Dressing (QC): 6 Lower Body Dressing(FIM): 5 Lower Body Dressing (QC): 5 On/Off Footwear (QC): 6 Toileting(FIM): 6 Toileting Hygiene (QC): 6 Toilet/Commode Transfer(FIM): 6 Toilet/Commode Transfer (QC): 6 Shower Transfer(FIM): 5 Additional Goals: 1-Demonstrate ADL Tasks, 2-Verbalize Understanding, 3- ImproveStrength/Jennifer 1=Demonstrate adherence to instructed precautions during ADL tasks. 2=Patient will verbalize/demonstrate understanding of assistive devices/ modifications for ADL. 3=Patient will improve strength/tolerance for activity to enable patient to perform ADL's. OT Education/Plan Problem List/Assessment Assessment: Decreased Activ Tolerance, Decreased UE Strength, Impaired Self- Care Skills Discharge Recommendations Plan/Recommendations: Continue POC Treatment Plan/Plan of Care Patient would benefit from OT for education, treatment and training to promote independence in ADL's, mobility, safety and/or upper extremity function for ADL' s. Plan of Care: ADL Retraining, Functional Mobility, Group Exercise/Act as Ind, UE Funct Exercise/Act Treatment Duration: Dec 24, 2018 Frequency: At least 5 of 7 days/Wk (IRF) Estimated Hrs Per Day: 1.5 hours per day Rehab Potential: Good Time/GCodes Start Time: 12:45 Stop Time: 13:15 Total Time Billed (hr/min): 30 Billed Treatment Time 1 visit-FA 1 (15 min) EX 1 (15 min) JAMIE NELSON Dec 09, 2018 13:26
--- NOTE | 2018-12-09 14:13 | Physical Therapy Daily Note ---
PT Daily Note-Current Subjective Pt. states she is feeing a little better. Agrees to Rx. Wants in bed after Rx. Pain Numeric Pain Scale: 6 Location: Left Location Body Site: Hip Pain Description: Ache Transfers Therapy Code Descriptions/Definitions Functional [place] Measure: 0=Not Assessed/NA 4=Minimal Assistance 1=Total Assistance 5=Supervision or Setup 2=Maximal Assistance 6=Modified [place] 3=Moderate Assistance 7=Complete [place] Therapy Quality Codes: 6 Independent with activity with or without an assistive device 5 Patient requires set up or clean up by helper. Patient completes activity by themselves 4 Supervision or touching assist (CGA). [place] provide cues , steadying assist 3 The helper provides less than half the effort to complete the activity 2 The helper provides more than half the effort to complete the activity 1 Dependent. The helper does all the effort to complete an activity 7 Patient refused to complete or attempt activity 9 The patient did not perform the activity before the current illness or injury 88 Not attempted due to Medical conditions or safety concerns sit to stand , sit to sup CGA multiple trials Weight Bearing Right Lower Extremity: Right Full Weight Bearing Left Lower Extremity: Left Weight Bearing/Tolerated THR precautions Gait Training Does the Patient Walk?: Yes Gait Assistive Device: FWW 75ft, 50ft SBA, slow, unequal step length Exercises Supine Ex: Bridging, Ankle pumps, Quad Set, Rolling, Glut sets, Heel Slides, Short Arc Quads, Scooting, Straight leg raise, Hip abd/add Supine Reps: 15 Treatments pt. requested to change her slacks, this was done in supine, bridging with max assist to charley LLE Assessment Current Status: Good Progress feels weak and tired this date with c/o some nausea, no appetite and symptoms increasing when up active on feet PT Short Term Goals Short Term Goals Time Frame: Dec 08, 2018 Gait (FIM): 4 Distance (FIM): 3=150 ft Gait Assistive Device: FWW PT [facility] Goals Roll Changer Goals PT Roll Changer Goals Time Frame: Dec 20, 2018 Transfers (B,C,W/C) (FIM): 6 Sit to Lying (QC): 6 Lying-Sitting on Side/Bed(QC): 6 Sit to Stand (QC): 6 Rollin Roll Left to Right (QC): 6 Chair/Giw-et-Rkygs Xfer(QC): 6 Car Transfer (QC): 6 Does the Patient Walk: Yes Gait (FIM): 6 Gait distance (FIM): 3=150 ft Walk 10 feet (QC): 6 Walk 10ft-Uneven Surface(QC): 6 Walk 50ft with 2 Turns (QC): 6 Walk 150 ft (QC): 6 Gait Assistive Device: FWW Does the Pt use WC or Scooter?: No Stairs (FIM): 5 # of Steps: 4 1 Step (curb) (QC): 6 4 Steps (QC): 6 12 Steps (QC): 88 Stairs Level Of Assist: 6 Picking up an Object (QC): 88 PT Plan Treatment/Plan Treatment Plan: Continue Plan of Care Treatment Plan: Bed Mobility, Education, Functional Activity Jennifer, Functional Strength, Group Therapy, Gait, Safety, Therapeutic Exercise, Transfers Treatment Duration: Dec 20, 2018 Frequency: At least 5 of 7 days/Wk (IRF) Estimated Hrs Per Day: 1.5 hours per day Patient and/or Family Agrees t: Yes Safety Risks/Education Patient Education: Gait Training, Transfer Techniques, Correct Positioning, Disease Process, Safety Issues Teaching Recipient: Patient Teaching Methods: Demonstration Response to Teaching: Verbalize Understanding Time/GCodes Time In: 1315 Time Out: 1345 Total Billed Treatment Time: 30 Total Billed Treatment 1,FA10m,EX20m G Codes Necessary: JUAN Bhakta RAG CUTTING MACHINE TENDER Dec 09, 2018 14:13
--- NOTE | 2018-12-09 16:20 | NUR ---
SOLAR INSTALLATION SUPERVISOR met with patient to review team conference summary. Patient is performing all therapy activities with standby assistance to modified independent. Patient does report continued muscle spasms and periods of weakness; however was recently able to ambulate 170 feet with standby assistance and complete for stairs. Although team believes patient would be appropriate to return home or to temporarily reside with family, patient does not feel comfortable with either of those options. Patient states she was informed prior to admitting to ARU that she would qualify for usp placement at discharge. SOLAR INSTALLATION SUPERVISOR explained typical SNF requirements and the potential for denial for placement due to high functionality. Patient understands this; however, does request SOLAR INSTALLATION SUPERVISOR to send referral to [facility] for skilled placement.
[2018-12-09 18:00] VITALS: BP 152/78
[2018-12-10] MEDS: BACLOFEN 10 MG (LIORESAL) TAB PO PRN ×3 (03:52→21:13)
[2018-12-10 05:04] VITALS: BP 151/80
--- NOTE | 2018-12-10 08:40 | PM&R Progress Note ---
Subjective HPI/CC On Admission Date Seen by Provider: Dec 10, 2018 Time Seen by Provider: 08:45 CC: Debility following left hip fracture HPI: This is a healthy 88yoWF who presents to the IRF for intensive therapy after suffering a left hip fracture sustained in a fall at home and undergoing an uncomplicated hip fracture by Dr Hartley. Patient is healthy ordinarily and resides at home with family involvement and intends to return home at e completion of IRF protocol. Currently she reports the pain is controlled and labs and meds were reviewed and no major concerns identified. Cath was DC and bowels will be monitored since she had diarrhea prior to admit and that was the reason she was so weak and suffered a fall at home. Patient is participating with therapies on 4th floor and overall has no limitations for admit to IRF. Subjective/Events-last exam Increase Baclofen of 10mg QID but still complains of vague pain and other somatic complaints unrelated to the hip issue Bowels are moving well and actually too well so will hold stool softners rather than give Imodium Overall participating in therapies and doing everything that is asked of her Skilled care getting arranged and [facility] has accepted for Thursday Labs reviewed Review of Systems General: Fatigue Musculoskeletal: leg pain Objective Exam Vital Signs Vital Signs Date Time Temp Pulse Resp B/P (MAP) Pulse Ox O2 Delivery O2 Flow Rate FiO2 12/10/18 09:00 Room Air 12/10/18 05:04 97.8 81 18 151/80 (103) 95 Capillary Refill : General Appearance: No Apparent Distress, WD/WN, Chronically ill, Thin, Other ( frail) HEENT: PERRL/EOMI, Normal ENT Inspection, Pharynx Normal, Moist Mucous Membranes Neck: Full Range of Motion, Normal Inspection, Non Tender, Supple Respiratory: Chest Non Tender, Lungs Clear, Normal Breath Sounds, No Accessory Muscle Use, No Respiratory Distress Cardiovascular: Regular Rate, Rhythm, No Edema, No Gallop, No JVD, No Murmur Gastrointestinal: Normal Bowel Sounds, No Organomegaly, No Pulsatile Mass, Non Tender, Soft Back: Normal Inspection, No CVA Tenderness, No Vertebral Tenderness Extremity: Normal Capillary Refill, Normal Inspection, Normal Range of Motion ( except left leg), Non Tender, No Calf Tenderness, No Pedal Edema Neurologic/Psychiatric: Alert, Oriented x3, No Motor/Sensory Deficits, Normal Mood/Affect Skin: Normal Color, Warm/Dry Lymphatic: No Adenopathy Results/Procedures Lab Patient resulted labs reviewed. 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
[2018-12-10] MEDS: ENOXAPARIN 30 MG/0.3 ML (LOVENOX) SYR SC SCH (09:56)
[2018-12-10] MEDS: SENNA W/DOCUSATE (SENOKOT S) TABLET PO SCH ×2 (09:56→20:31)
[2018-12-10] MEDS: ASPIRIN E.C. 325 MG (ECOTRIN) TABLET PO SCH (09:56)
[2018-12-10] MEDS: guaiFENesin (MUCINEX) 600 MG TAB PO SCH ×2 (09:56→21:13)
[2018-12-10] MEDS: prednisoLONE 1% OPTH (PRED FORTE) 5 ML BTL OP SCH (09:57)
--- NOTE | 2018-12-10 10:52 | Occupational Ther Daily Note ---
OT Current Status-Daily Note Subjective Pt agrees to treatment. Pt states she woke up at 1 am and is tired this morning. Mental Status/Objective Therapy Code Descriptions/Definitions Functional [place] Measure: 0=Not Assessed/NA 4=Minimal Assistance 1=Total Assistance 5=Supervision or Setup 2=Maximal Assistance 6=Modified [place] 3=Moderate Assistance 7=Complete [place] ADL-Treatment Pt requests shower this morning. Sit to stand with supervision. Gait to closet with FWW. Pt retrieved clothing from closet with SBA using FWW for balance. Gait to restroom, no LOB noted. Transfer to toilet with SBA. Pt able to complete toileting hygiene and clothing management with SBA. Transfer to walk in shower with SBA. Seated bathing completed using hand held shower and long handled sponge. Pt able to wash all areas with SBA. Don button up shirt without assist. Pt used hands assembler to start underwear and pants over left foot. Stood with good balance during pant hike. Pt donned socks using sock aid. Stood at sink to complete grooming tasks with modified independence. Therapy Code Descriptions/Definitions Functional [place] Measure: 0=Not Assessed/NA 4=Minimal Assistance 1=Total Assistance 5=Supervision or Setup 2=Maximal Assistance 6=Modified [place] 3=Moderate Assistance 7=Complete [place] Therapy Quality Codes: 6 Independent with activity with or without an assistive device 5 Patient requires set up or clean up by helper. Patient completes activity by themselves 4 Supervision or touching assist (CGA). [place] provide cues , steadying assist 3 The helper provides less than half the effort to complete the activity 2 The helper provides more than half the effort to complete the activity 1 Dependent. The helper does all the effort to complete an activity 7 Patient refused to complete or attempt activity 9 The patient did not perform the activity before the current illness or injury 88 Not attempted due to Medical conditions or safety concerns Grooming (FIM): 6 Oral Hygiene (QC): 6 Bathing (FIM): 5 Shower/Bathe Self (QC): 4 Upper Body (FIM): 5 Upper Body Dressing (QC): 4 Lower Body Dressing (FIM): 5 Lower Body Dressing (QC): 4 Toileting (FIM): 5 Toileting Hygiene (QC): 4 Toilet/Commode Transfer (FIM): 5 Toilet Transfer (QC): 4 Shower Transfer(FIM): 5 Other Treatment Gait to therapy gym with FWW. Pt required one seated rest break secondary to fatigue. Arm bike x12 minutes to increase overall strength and activity tolerance needed for functional task completion. Pt completed activity with minimal resistance and slow pace. No rest breaks needed until end of activity. Pt returned to room with one seated rest break. Sit to supine with SBA. Pt resting in bed with needs met after session, RN present. OT Short Term Goals Short Term Goals Time Frame: Dec 10, 2018 Bathing(FIM): 4 Lower Body Dressing(FIM): 4 Toileting(FIM): 4 Toilet/Commode Transfer(FIM): 5 Additional Short Term Goals: 1-Demonstrate ADL Tasks, 2-Verbalize Understanding , 3-ImproveStrength/Jennifer 1=Demonstrate adherence to instructed precautions during ADL tasks. 2=Patient will verbalize/demonstrate understanding of assistive devices/ modifications for ADL. 3=Patient will improve strength/tolerance for activity to enable patient to perform ADL's. OT Custodial Goals Custodial Goals Time Frame: Dec 24, 2018 Eating (FIM): 6 Eating (QC): 6 Groomin Oral Hygiene (QC): 6 Bathing(FIM): 5 Shower/Bathe Self (QC): 5 Upper Body Dressing(FIM): 6 Upper Body Dressing (QC): 6 Lower Body Dressing(FIM): 5 Lower Body Dressing (QC): 5 On/Off Footwear (QC): 6 Toileting(FIM): 6 Toileting Hygiene (QC): 6 Toilet/Commode Transfer(FIM): 6 Toilet/Commode Transfer (QC): 6 Shower Transfer(FIM): 5 Additional Goals: 1-Demonstrate ADL Tasks, 2-Verbalize Understanding, 3- ImproveStrength/Jennifer 1=Demonstrate adherence to instructed precautions during ADL tasks. 2=Patient will verbalize/demonstrate understanding of assistive devices/ modifications for ADL. 3=Patient will improve strength/tolerance for activity to enable patient to perform ADL's. OT Education/Plan Discharge Recommendations Plan/Recommendations: Continue POC Treatment Plan/Plan of Care Patient would benefit from OT for education, treatment and training to promote independence in ADL's, mobility, safety and/or upper extremity function for ADL' s. Plan of Care: ADL Retraining, Functional Mobility, Group Exercise/Act as Ind, UE Funct Exercise/Act Treatment Duration: Dec 24, 2018 Frequency: At least 5 of 7 days/Wk (IRF) Estimated Hrs Per Day: 1.5 hours per day Rehab Potential: Good Time/GCodes Start Time: 09:00 Stop Time: 10:00 Total Time Billed (hr/min): 60 Billed Treatment Time 1 visit, ADLx3(45minutes), EX(15minutes) LIANG MARIANO OT Dec 10, 2018 10:52
--- NOTE | 2018-12-10 11:59 | Physical Therapy Daily Note ---
PT Daily Note-Current Subjective Pt sitting in recliner upon arrival. Pt agrees to PT. Pain Numeric Pain Scale: 5-Moderate Pain Location: Left Location Body Site: Hip Pain Description: Ache, Tightness Mental Status Patient Orientation: Person, Place, Situation Transfers Therapy Code Descriptions/Definitions Functional [place] Measure: 0=Not Assessed/NA 4=Minimal Assistance 1=Total Assistance 5=Supervision or Setup 2=Maximal Assistance 6=Modified [place] 3=Moderate Assistance 7=Complete [place] Therapy Quality Codes: 6 Independent with activity with or without an assistive device 5 Patient requires set up or clean up by helper. Patient completes activity by themselves 4 Supervision or touching assist (CGA). [place] provide cues , steadying assist 3 The helper provides less than half the effort to complete the activity 2 The helper provides more than half the effort to complete the activity 1 Dependent. The helper does all the effort to complete an activity 7 Patient refused to complete or attempt activity 9 The patient did not perform the activity before the current illness or injury 88 Not attempted due to Medical conditions or safety concerns Scootin Supine to/from Sit: 5 Sit to/from Stand: 5 Sit to Lying (QC): 5 Sit to Stand (QC): 5 Weight Bearing Right Lower Extremity: Right Full Weight Bearing Left Lower Extremity: Left Weight Bearing/Tolerated THR precautions Gait Training Does the Patient Walk?: Yes Distance (FIM): 3=150 ft Distance: 200' Walk 10 feet (QC): 5 Walk 50 ft with 2 Turns(QC): 4 Walk 150 ft (QC): 4 Gait Level of Assist: 4 Gait Persons Needed: 1 Gait Assistive Device: FWW Pt walks with slow edwardo, stiff antalgic gait pattern. Exercises Seated Therapy Exercises: Ankle pumps, Long arc quads, Hip flexion, Kicking activity Seated Reps: 15 NuStep Minutes: 15 NuStep Workload: 3 Treatments Pt transfers from recliner to standing then ambulates in hallway. Pt uses NuStep for 15m at WL 3 followed by Seated Ex in chair. Pt ambulated in hallway in route to room. Pt uses restroom then rests Supine in bed at end of tx. Pt has all needs met. Assessment Current Status: Good Progress Pt fatigues and needs occasional rest breaks. Pt limited by fatigue & pain. PT Short Term Goals Short Term Goals Time Frame: Dec 08, 2018 Gait (FIM): 4 Distance (FIM): 3=150 ft Gait Assistive Device: FWW PT [facility] Goals Rail Project Engineer Goals PT Mcfp Goals Time Frame: Dec 20, 2018 Transfers (B,C,W/C) (FIM): 6 Sit to Lying (QC): 6 Lying-Sitting on Side/Bed(QC): 6 Sit to Stand (QC): 6 Rollin Roll Left to Right (QC): 6 Chair/Lmr-xi-Lnwel Xfer(QC): 6 Car Transfer (QC): 6 Does the Patient Walk: Yes Gait (FIM): 6 Gait distance (FIM): 3=150 ft Walk 10 feet (QC): 6 Walk 10ft-Uneven Surface(QC): 6 Walk 50ft with 2 Turns (QC): 6 Walk 150 ft (QC): 6 Gait Assistive Device: FWW Does the Pt use WC or Scooter?: No Stairs (FIM): 5 # of Steps: 4 1 Step (curb) (QC): 6 4 Steps (QC): 6 12 Steps (QC): 88 Stairs Level Of Assist: 6 Picking up an Object (QC): 88 PT Plan Problem List Problem List: Activity Tolerance, Functional Strength Treatment/Plan Treatment Plan: Continue Plan of Care Treatment Plan: Bed Mobility, Education, Functional Activity Jennifer, Functional Strength, Group Therapy, Gait, Safety, Therapeutic Exercise, Transfers Treatment Duration: Dec 20, 2018 Frequency: At least 5 of 7 days/Wk (IRF) Estimated Hrs Per Day: 1.5 hours per day Patient and/or Family Agrees t: Yes Safety Risks/Education Patient Education: Gait Training, Transfer Techniques, Correct Positioning, Safety Issues Teaching Recipient: Patient Teaching Methods: Discussion Response to Teaching: Verbalize Understanding Time/GCodes Time In: 1100 Time Out: 1200 Total Billed Treatment 1, EX x2 (30m), FA (15m) & GT (15m) G Codes Necessary: MELISSA Ortega YACHT RIGGER Dec 10, 2018 11:59
--- NOTE | 2018-12-10 13:31 | NUR ---
MASTER RIGGER faxed referral to [facility] for SNF placement. Per Dalia, patient is accepted to facility for admission on Thursday.
--- NOTE | 2018-12-10 15:33 | Therapy Group Daily Note ---
Therapy Daily Group Note Patient Education Topic Other List Below (ARU Expectations, Memory) Exercises LE Seated Exercise, UE Exercise Session Ratio (pt:therapist): 4:1 Goal of Session: Education on ARU Expectations, Memory Strategies, UE/LE Strengthing Goal Met for this Session: Yes Pt Benefit of Group: Contributions to Others, F/U Use of Strategies @Home, Increased Functional Strength, Improved Cognition, Recognition of Peers, Socialization Other/Notes Pt ambulated to OT/PT group in [facility] area. Group consisted of introductions (name, place, best restaurant), socialization, UE/LE seated exercises and educational topics (memory strategies/ARU description). Pt introduced self appropriately and actively listened to peers. Completes UE & LE exercises correctly. Pt was able to verbalize memory strategies and acknowledge understanding of educational topics. After therapy, pt laying Supine in bed to rest. All needs met in room. Start Time: 13:00 Stop Time: 14:30 Total Billed Treatment 1, GRP (90m) MELISSA HERRERA PTA Dec 10, 2018 15:33
[2018-12-10 17:52] VITALS: BP 150/87
[2018-12-10] MEDS: HYDROcodone/APAP 10 MG/325 MG (LORTAB) TAB PO PRN (21:13)
[2018-12-10] MEDS: MELATONIN 3 MG TABLET PO SCH (21:13)
[2018-12-11] MEDS: HYDROcodone/APAP 10 MG/325 MG (LORTAB) TAB PO PRN ×2 (03:47→22:19)
[2018-12-11 05:56] VITALS: BP 148/74
[2018-12-11] MEDS: SENNA W/DOCUSATE (SENOKOT S) TABLET PO SCH ×2 (08:03→19:41)
[2018-12-11] MEDS: prednisoLONE 1% OPTH (PRED FORTE) 5 ML BTL OP SCH (08:13)
[2018-12-11] MEDS: ENOXAPARIN 30 MG/0.3 ML (LOVENOX) SYR SC SCH (08:13)
[2018-12-11] MEDS: guaiFENesin (MUCINEX) 600 MG TAB PO SCH ×2 (08:13→22:18)
[2018-12-11] MEDS: ASPIRIN E.C. 325 MG (ECOTRIN) TABLET PO SCH (08:13)
--- NOTE | 2018-12-11 10:26 | Physical Therapy Daily Note ---
PT Daily Note-Current Subjective Pt denies pain upon arrival and while in bed. Pt rates pain during ambulation 8 /10 (L) hip. Pt states "It was my knee that was hurting when I would walk but now it is my hip today." Pt was pleasantly surprised that some of the exercises were easier today. Pt requested to change into her clothes at end of treatment. Mental Status Patient Orientation: Person, Place, Situation Transfers Therapy Code Descriptions/Definitions Functional [place] Measure: 0=Not Assessed/NA 4=Minimal Assistance 1=Total Assistance 5=Supervision or Setup 2=Maximal Assistance 6=Modified [place] 3=Moderate Assistance 7=Complete [place] Therapy Quality Codes: 6 Independent with activity with or without an assistive device 5 Patient requires set up or clean up by helper. Patient completes activity by themselves 4 Supervision or touching assist (CGA). [place] provide cues , steadying assist 3 The helper provides less than half the effort to complete the activity 2 The helper provides more than half the effort to complete the activity 1 Dependent. The helper does all the effort to complete an activity 7 Patient refused to complete or attempt activity 9 The patient did not perform the activity before the current illness or injury 88 Not attempted due to Medical conditions or safety concerns Transfers out of bed SBA. Weight Bearing Right Lower Extremity: Right Full Weight Bearing Left Lower Extremity: Left Weight Bearing/Tolerated THR precautions Exercises Seated Therapy Exercises: LE Protocol Seated Reps: 20 Treatments Pt amb with FWW and CGA x 200ft at slow steady speed, WBAT. Back to chair post therapy session. Pt donned pants with min A (L) pant leg, donned shirt (I). Pt seated with legs elevated in recliner post therapy. Assessment Current Status: Good Progress Pt mobility progressing nicely. Pt demonstrates 3+/5 strength in (L) hip flexors. Pt mod (I) with transfers this am. Pt back to chair with call light and all needs met post therapy session. PT Short Term Goals Short Term Goals Time Frame: Dec 08, 2018 Gait (FIM): 4 Distance (FIM): 3=150 ft Gait Assistive Device: FWW PT Candle Molder Hand Goals Mcc Goals PT Mcc Goals Time Frame: Dec 20, 2018 Transfers (B,C,W/C) (FIM): 6 Sit to Lying (QC): 6 Lying-Sitting on Side/Bed(QC): 6 Sit to Stand (QC): 6 Rollin Roll Left to Right (QC): 6 Chair/Sqv-au-Obtcf Xfer(QC): 6 Car Transfer (QC): 6 Does the Patient Walk: Yes Gait (FIM): 6 Gait distance (FIM): 3=150 ft Walk 10 feet (QC): 6 Walk 10ft-Uneven Surface(QC): 6 Walk 50ft with 2 Turns (QC): 6 Walk 150 ft (QC): 6 Gait Assistive Device: FWW Does the Pt use WC or Scooter?: No Stairs (FIM): 5 # of Steps: 4 1 Step (curb) (QC): 6 4 Steps (QC): 6 12 Steps (QC): 88 Stairs Level Of Assist: 6 Picking up an Object (QC): 88 PT Plan Treatment/Plan Treatment Plan: Continue Plan of Care Treatment Plan: Bed Mobility, Education, Functional Activity Jennifer, Functional Strength, Group Therapy, Gait, Safety, Therapeutic Exercise, Transfers Treatment Duration: Dec 20, 2018 Frequency: At least 5 of 7 days/Wk (IRF) Estimated Hrs Per Day: 1.5 hours per day Patient and/or Family Agrees t: Yes Time/GCodes Time In: 945 Time Out: 1010 Total Billed Treatment Time: 25 Total Billed Treatment 1, ther ex 15', Gait 10' KENAN GARCIA CPTA Dec 11, 2018 10:26
--- NOTE | 2018-12-11 12:44 | PM&R Progress Note ---
Subjective HPI/CC On Admission Date Seen by Provider: Dec 11, 2018 Time Seen by Provider: 11:15 CC: Debility following left hip fracture HPI: This is a healthy 88yoWF who presents to the IRF for intensive therapy after suffering a left hip fracture sustained in a fall at home and undergoing an uncomplicated hip fracture by Dr Hartley. Patient is healthy ordinarily and resides at home with family involvement and intends to return home at [facility] completion of IRF protocol. Currently she reports the pain is controlled and labs and meds were reviewed and no major concerns identified. Cath was DC and bowels will be monitored since she had diarrhea prior to admit and that was the reason she was so weak and suffered a fall at home. Patient is participating with therapies on 4th floor and overall has no limitations for admit to IRF. Subjective/Events-last exam Increase Baclofen of 10mg QID and today she denies any muscle spasms Bowels are moving well and had a formed stool today Overall participating in therapies and doing everything that is asked of her Skilled care getting arranged and [facility] has accepted for Thursday Using IS Review of Systems General: Fatigue Musculoskeletal: leg pain Objective Exam Vital Signs Vital Signs Date Time Temp Pulse Resp B/P (MAP) Pulse Ox O2 Delivery O2 Flow Rate FiO2 12/11/18 09:00 Room Air 12/11/18 05:56 97.4 73 18 148/74 (98) 95 Capillary Refill : General Appearance: No Apparent Distress, WD/WN, Chronically ill, Thin, Other ( frail) HEENT: PERRL/EOMI, Normal ENT Inspection, Pharynx Normal, Moist Mucous Membranes Neck: Full Range of Motion, Normal Inspection, Non Tender, Supple Respiratory: Chest Non Tender, Lungs Clear, Normal Breath Sounds, No Accessory Muscle Use, No Respiratory Distress Cardiovascular: Regular Rate, Rhythm, No Edema, No Gallop, No JVD, No Murmur Gastrointestinal: Normal Bowel Sounds, No Organomegaly, No Pulsatile Mass, Non Tender, Soft Back: Normal Inspection, No CVA Tenderness, No Vertebral Tenderness Extremity: Normal Capillary Refill, Normal Inspection, Normal Range of Motion ( except left leg), Non Tender, No Calf Tenderness, No Pedal Edema Neurologic/Psychiatric: Alert, Oriented x3, No Motor/Sensory Deficits, Normal Mood/Affect Skin: Normal Color, Warm/Dry Lymphatic: No Adenopathy Results/Procedures Lab Patient resulted labs reviewed. 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
[2018-12-11 15:51] VITALS: BP 120/72
[2018-12-11] MEDS: BACLOFEN 10 MG (LIORESAL) TAB PO PRN (22:18)
[2018-12-11] MEDS: MELATONIN 3 MG TABLET PO SCH (22:18)
[2018-12-12 05:03] VITALS: BP 148/73
[2018-12-12] MEDS: SENNA W/DOCUSATE (SENOKOT S) TABLET PO SCH ×2 (08:10→19:27)
[2018-12-12] MEDS: ASPIRIN E.C. 325 MG (ECOTRIN) TABLET PO SCH (08:10)
[2018-12-12] MEDS: ENOXAPARIN 30 MG/0.3 ML (LOVENOX) SYR SC SCH (08:10)
[2018-12-12] MEDS: guaiFENesin (MUCINEX) 600 MG TAB PO SCH ×2 (08:10→21:52)
[2018-12-12] MEDS: BACLOFEN 10 MG (LIORESAL) TAB PO PRN ×3 (08:14→21:52)
[2018-12-12] MEDS: HYDROcodone/APAP 10 MG/325 MG (LORTAB) TAB PO PRN ×3 (08:14→21:52)
[2018-12-12] MEDS: prednisoLONE 1% OPTH (PRED FORTE) 5 ML BTL OP SCH (08:16)
--- NOTE | 2018-12-12 13:23 | PM&R Progress Note ---
Subjective HPI/CC On Admission Date Seen by Provider: Dec 12, 2018 Time Seen by Provider: 11:20 CC: Debility following left hip fracture HPI: This is a healthy 88yoWF who presents to the IRF for intensive therapy after suffering a left hip fracture sustained in a fall at home and undergoing an uncomplicated hip fracture by Dr Hartley. Patient is healthy ordinarily and resides at home with family involvement and intends to return home at e completion of IRF protocol. Currently she reports the pain is controlled and labs and meds were reviewed and no major concerns identified. Cath was DC and bowels will be monitored since she had diarrhea prior to admit and that was the reason she was so weak and suffered a fall at home. Patient is participating with therapies on 4th floor and overall has no limitations for admit to IRF. Subjective/Events-last exam Increase Baclofen of 10mg QID and reports only minimal spasms now and will be DC on that med Bowels are moving well and no issues there Skilled care getting arranged and [facility] has accepted for Thursday Using IS Family at bedside visiting after they went to [place] Slept very well last night Review of Systems Musculoskeletal: leg pain Objective Exam Vital Signs Vital Signs Date Time Temp Pulse Resp B/P (MAP) Pulse Ox O2 Delivery O2 Flow Rate FiO2 12/12/18 09:58 Room Air 12/12/18 05:03 98.6 77 20 148/73 (98) 98 Capillary Refill : General Appearance: No Apparent Distress, WD/WN, Chronically ill, Thin, Other ( frail) HEENT: PERRL/EOMI, Normal ENT Inspection, Pharynx Normal, Moist Mucous Membranes Neck: Full Range of Motion, Normal Inspection, Non Tender, Supple Respiratory: Chest Non Tender, Lungs Clear, Normal Breath Sounds, No Accessory Muscle Use, No Respiratory Distress Cardiovascular: Regular Rate, Rhythm, No Edema, No Gallop, No JVD, No Murmur Gastrointestinal: Normal Bowel Sounds, No Organomegaly, No Pulsatile Mass, Non Tender, Soft Back: Normal Inspection, No CVA Tenderness, No Vertebral Tenderness Extremity: Normal Capillary Refill, Normal Inspection, Normal Range of Motion ( except left leg), Non Tender, No Calf Tenderness, No Pedal Edema Neurologic/Psychiatric: Alert, Oriented x3, No Motor/Sensory Deficits, Normal Mood/Affect Skin: Normal Color, Warm/Dry Lymphatic: No Adenopathy Results/Procedures Lab Patient resulted labs reviewed. Assessment/Plan Assessment and Plan Assess & Plan/Chief Complaint Assessment: Debility following a left femoral neck fracture Fall at home s/p dehydration from diarrhea Corneal transplant in the past Post op anemia Constipation acute now resolved Somatic complaints Plan: Monitor labs Home meds Lovenox IRF BM regimen prn Baclofen increased to 10mg PO QID NHP at [place] on Thursday (1) Hip fracture (2) Advanced age (3) Anemia due to acute blood loss (4) Corneal transplant status Clinical Quality Measures DVT/VTE Risk/Contraindication: Risk Factor Score Per Nursin RFS Level Per Nursing on Admit: 4+=Very High MICHELLE LARSON DO Dec 12, 2018 13:23
[2018-12-12 17:12] VITALS: BP 137/85
[2018-12-12] MEDS: MELATONIN 3 MG TABLET PO SCH (21:52)
[2018-12-13] MEDS: HYDROcodone/APAP 10 MG/325 MG (LORTAB) TAB PO PRN ×3 (02:23→21:10)
[2018-12-13 05:26] VITALS: BP 132/80
--- NOTE | 2018-12-13 08:24 | PM&R Progress Note ---
Subjective HPI/CC On Admission Date Seen by Provider: Dec 13, 2018 Time Seen by Provider: 08:15 CC: Debility following left hip fracture HPI: This is a healthy 88yoWF who presents to the IRF for intensive therapy after suffering a left hip fracture sustained in a fall at home and undergoing an uncomplicated hip fracture by Dr Hartley. Patient is healthy ordinarily and resides at home with family involvement and intends to return home at e completion of IRF protocol. Currently she reports the pain is controlled and labs and meds were reviewed and no major concerns identified. Cath was DC and bowels will be monitored since she had diarrhea prior to admit and that was the reason she was so weak and suffered a fall at home. Patient is participating with therapies on 4th floor and overall has no limitations for admit to IRF. Subjective/Events-last exam Baclofen really helping her Multiple somatic complaints now every day that I see her Bowels are moving well Skilled care is arranged and [facility] has accepted for Thursday Using IS Left hip pain persists Slept very well last night Supportive care for multiple somatic issues Review of Systems General: Fatigue Musculoskeletal: leg pain Objective Exam Vital Signs Vital Signs Date Time Temp Pulse Resp B/P (MAP) Pulse Ox O2 Delivery O2 Flow Rate FiO2 12/13/18 05:26 97.7 75 18 132/80 (97) 98 Room Air Capillary Refill : General Appearance: No Apparent Distress, WD/WN, Chronically ill, Thin, Other ( frail) HEENT: PERRL/EOMI, Normal ENT Inspection, Pharynx Normal, Moist Mucous Membranes Neck: Full Range of Motion, Normal Inspection, Non Tender, Supple Respiratory: Chest Non Tender, Lungs Clear, Normal Breath Sounds, No Accessory Muscle Use, No Respiratory Distress Cardiovascular: Regular Rate, Rhythm, No Edema, No Gallop, No JVD, No Murmur Gastrointestinal: Normal Bowel Sounds, No Organomegaly, No Pulsatile Mass, Non Tender, Soft Back: Normal Inspection, No CVA Tenderness, No Vertebral Tenderness Extremity: Normal Capillary Refill, Normal Inspection, Normal Range of Motion ( except left leg), Non Tender, No Calf Tenderness, No Pedal Edema Neurologic/Psychiatric: Alert, Oriented x3, No Motor/Sensory Deficits, Normal Mood/Affect Skin: Normal Color, Warm/Dry Lymphatic: No Adenopathy Results/Procedures Lab Patient resulted labs reviewed. Assessment/Plan Assessment and Plan Assess & Plan/Chief Complaint Assessment: Debility following a left femoral neck fracture Fall at home s/p dehydration from diarrhea Corneal transplant in the past Post op anemia Constipation acute now resolved Somatic complaints Plan: Monitor labs Home meds Lovenox IRF BM regimen prn Baclofen increased to 10mg PO QID NHP at [place] on Thursday (1) Hip fracture (2) Advanced age (3) Anemia due to acute blood loss (4) Corneal transplant status Clinical Quality Measures DVT/VTE Risk/Contraindication: Risk Factor Score Per Nursin RFS Level Per Nursing on Admit: 4+=Very High MICHELLE LARSON DO Dec 13, 2018 08:24
[2018-12-13] MEDS: guaiFENesin (MUCINEX) 600 MG TAB PO SCH ×2 (08:53→21:10)
[2018-12-13] MEDS: SENNA W/DOCUSATE (SENOKOT S) TABLET PO SCH ×2 (08:53→21:10)
[2018-12-13] MEDS: ENOXAPARIN 30 MG/0.3 ML (LOVENOX) SYR SC SCH (08:53)
[2018-12-13] MEDS: ASPIRIN E.C. 325 MG (ECOTRIN) TABLET PO SCH (08:54)
[2018-12-13] MEDS: prednisoLONE 1% OPTH (PRED FORTE) 5 ML BTL OP SCH (08:58)
--- NOTE | 2018-12-13 10:01 | Occupational Ther Daily Note ---
OT Current Status-Daily Note Subjective Pt alert, sitting in recliner. Pt agrees to therapy. No c/o pain at this time. Pt to discharge tomorrow to [facility]. Mental Status/Objective Patient Orientation: Person, Place, Time, Situation Therapy Code Descriptions/Definitions Functional [place] Measure: 0=Not Assessed/NA 4=Minimal Assistance 1=Total Assistance 5=Supervision or Setup 2=Maximal Assistance 6=Modified [place] 3=Moderate Assistance 7=Complete [place] ADL-Treatment Therapy Code Descriptions/Definitions Functional [place] Measure: 0=Not Assessed/NA 4=Minimal Assistance 1=Total Assistance 5=Supervision or Setup 2=Maximal Assistance 6=Modified [place] 3=Moderate Assistance 7=Complete [place] Therapy Quality Codes: 6 Independent with activity with or without an assistive device 5 Patient requires set up or clean up by helper. Patient completes activity by themselves 4 Supervision or touching assist (CGA). [place] provide cues , steadying assist 3 The helper provides less than half the effort to complete the activity 2 The helper provides more than half the effort to complete the activity 1 Dependent. The helper does all the effort to complete an activity 7 Patient refused to complete or attempt activity 9 The patient did not perform the activity before the current illness or injury 88 Not attempted due to Medical conditions or safety concerns Eating (FIM): 6 (Pt demonstrates ability to complete own set up and eating with regular utensils.) Eating (QC): 6 Grooming (FIM): 7 (Standing at sink, pt able to complete stabilizing self with counter/sink.) Oral Hygiene (QC): 6 Bathing (FIM): 6 (Using grabbar, hand held shower, long handle sponge and grabbar pt able to complete by self.) Bathing Location: L Arm, R Arm, L Upper Leg, R Upper Leg, L Lower Leg ( including foot), R Lower Leg (including foot), Chest, Abdomen, Buttocks, Perineal Area Shower/Bathe Self (QC): 6 Upper Body (FIM): 6 (Retrieves clothing off of bed with FWW, dons/doffs by self.) Upper Body Dressing (QC): 6 Lower Body Dressing (FIM): 5 (Using FWW to retrieve clothing off of bed, pt able to complete dressing using AE to adhere to hip precautions. Supervision in standing to manipulate clothing.) Lower Body Dressing (QC): 4 On/Off Footwear (QC): 6 Toileting (FIM): 5 (Pt able to complete hygiene sitting on toilet. Supervision in standing to manipulate clothing.) Toileting Hygiene (QC): 4 Transfers (B, C, W/C) (FIM): 5 (Supervision using FWW.) Toilet/Commode Transfer (FIM): 5 (Supervision using FWW and grabbars.) Toilet Transfer (QC): 4 Shower Transfer(FIM): 5 (Supervision using grabbar, shower bench and FWW.) Other Treatment Pt demonstrated unsteadiness when hiking pants over hips, supervision for safety. Pt then ambulated to therapy gym with 1 recovery break. Resistive clothespins with 1# wt attached to B wrists to increase casing man, pinch and UE strength for daily functional tasks, 1x with each hand. Pt then ambulated back to room with FWW. After therapy, pt sitting in recliner with call light/phone in reach. All needs met in room. OT Short Term Goals Short Term Goals Time Frame: Dec 10, 2018 Bathing(FIM): 4 Lower Body Dressing(FIM): 4 Toileting(FIM): 4 Toilet/Commode Transfer(FIM): 5 Additional Short Term Goals: 1-Demonstrate ADL Tasks, 2-Verbalize Understanding , 3-ImproveStrength/Jennifer 1=Demonstrate adherence to instructed precautions during ADL tasks. 2=Patient will verbalize/demonstrate understanding of assistive devices/ modifications for ADL. 3=Patient will improve strength/tolerance for activity to enable patient to perform ADL's. OT Gut Sorter Goals Intermediate Goals Time Frame: Dec 24, 2018 Eating (FIM): 6 (met-12/13/2018) Eating (QC): 6 (met) Groomin (met-12/13/2018) Oral Hygiene (QC): 6 (met-12/13/2018) Bathing(FIM): 5 Shower/Bathe Self (QC): 5 (met-12/13/2018) Upper Body Dressing(FIM): 6 (met-12/13/2018) Upper Body Dressing (QC): 6 (met-12/13/2018) Lower Body Dressing(FIM): 5 (met-12/13/2018) Lower Body Dressing (QC): 5 (not met) On/Off Footwear (QC): 6 (met-12/13/2018) Toileting(FIM): 6 (not met) Toileting Hygiene (QC): 6 (not met) Toilet/Commode Transfer(FIM): 6 (not met) Toilet/Commode Transfer (QC): 6 (not met) Shower Transfer(FIM): 5 Additional Goals: 1-Demonstrate ADL Tasks, 2-Verbalize Understanding, 3- ImproveStrength/Jennifer 1=Demonstrate adherence to instructed precautions during ADL tasks. 2=Patient will verbalize/demonstrate understanding of assistive devices/ modifications for ADL. 3=Patient will improve strength/tolerance for activity to enable patient to perform ADL's. OT Education/Plan Problem List/Assessment Assessment: Impaired Self-Care Skills Discharge Recommendations Plan/Recommendations: Continue POC Therapy D/C Recommendations: [facility] (TCU/NH) Treatment Plan/Plan of Care Patient would benefit from OT for education, treatment and training to promote independence in ADL's, mobility, safety and/or upper extremity function for ADL' s. Plan of Care: ADL Retraining, Functional Mobility, Group Exercise/Act as Ind, UE Funct Exercise/Act Treatment Duration: Dec 24, 2018 Frequency: At least 5 of 7 days/Wk (IRF) Estimated Hrs Per Day: 1.5 hours per day Rehab Potential: Good Time/GCodes Start Time: 10:00 Stop Time: 11:00 Total Time Billed (hr/min): 60 Billed Treatment Time 1 visit-ADL 2 (30 min) FA 1 (15 min) EX 1 (15 min) JAMIE NELSON Dec 13, 2018 10:01
--- NOTE | 2018-12-13 10:14 | Physical Therapy Daily Note ---
PT Daily Note-Current Subjective Pt. agrees to Rx and states she really has just 3/10 . Pain Numeric Pain Scale: 3 Location: Left Location Body Site: Hip Pain Description: Ache Mental Status Patient Orientation: Normal For Age Transfers Therapy Code Descriptions/Definitions Functional [place] Measure: 0=Not Assessed/NA 4=Minimal Assistance 1=Total Assistance 5=Supervision or Setup 2=Maximal Assistance 6=Modified [place] 3=Moderate Assistance 7=Complete [place] Therapy Quality Codes: 6 Independent with activity with or without an assistive device 5 Patient requires set up or clean up by helper. Patient completes activity by themselves 4 Supervision or touching assist (CGA). [place] provide cues , steadying assist 3 The helper provides less than half the effort to complete the activity 2 The helper provides more than half the effort to complete the activity 1 Dependent. The helper does all the effort to complete an activity 7 Patient refused to complete or attempt activity 9 The patient did not perform the activity before the current illness or injury 88 Not attempted due to Medical conditions or safety concerns Transfers (B, C, W/C) (FIM): 6 Scootin Rollin Roll Left to Right (QC): 5 Supine to/from Sit: 6 Sit to/from Stand: 6 Sit to Lying (QC): 5 Sit to Stand (QC): 5 Chair/[id number]-Ygzkb Xfer(QC): 5 Bed to/from Chair: 5 Car Transfer (QC): 5 Weight Bearing Right Lower Extremity: Right Full Weight Bearing Left Lower Extremity: Left Weight Bearing/Tolerated THR precautions Gait Training Does the Patient Walk?: Yes Gait (FIM): 5 Distance (FIM): 3=150 ft (160x2) Walk 10 feet (QC): 5 Walk 50 ft with 2 Turns(QC): 5 Walk 150 ft (QC): 5 Walking 10ft/uneven surface-QC: 5 Gait Level of Assist: 1 Gait Persons Needed: 1 Gait Assistive Device: FWW Stair Training Stair Training: Handrails/: 2 handrails Stairs (FIM): 2 #of Steps: 4 1 Step (curb) (QC): 4 4 Steps (QC): 5 Stairs: Pattern: Step to Level of Assist: 5 Exercises Supine Ex: Ankle pumps, Quad Set, Rolling, Glut sets, Heel Slides, Short Arc Quads, Scooting, Straight leg raise, Hip abd/add Supine Reps: 12 Seated Therapy Exercises: Ankle pumps, Sit to stand, Long arc quads Seated Reps: 12 Assessment Current Status: Good Progress much less pain and much greater functional mobility PT Short Term Goals Short Term Goals Time Frame: Dec 08, 2018 Gait (FIM): 4 Distance (FIM): 3=150 ft Gait Assistive Device: FWW PT Dance Hall Host/Hostess Goals Long-Term Goals PT Long-Term Goals Time Frame: Dec 20, 2018 Transfers (B,C,W/C) (FIM): 6 Sit to Lying (QC): 6 Lying-Sitting on Side/Bed(QC): 6 Sit to Stand (QC): 6 Rollin Roll Left to Right (QC): 6 Chair/Wqn-de-Khklv Xfer(QC): 6 Car Transfer (QC): 6 Does the Patient Walk: Yes Gait (FIM): 6 Gait distance (FIM): 3=150 ft Walk 10 feet (QC): 6 Walk 10ft-Uneven Surface(QC): 6 Walk 50ft with 2 Turns (QC): 6 Walk 150 ft (QC): 6 Gait Assistive Device: FWW Does the Pt use WC or Scooter?: No Stairs (FIM): 5 # of Steps: 4 1 Step (curb) (QC): 6 4 Steps (QC): 6 12 Steps (QC): 88 Stairs Level Of Assist: 6 Picking up an Object (QC): 88 PT Plan Treatment/Plan Treatment Plan: Continue Plan of Care Treatment Plan: Bed Mobility, Education, Functional Activity Jennifer, Functional Strength, Group Therapy, Gait, Safety, Therapeutic Exercise, Transfers Treatment Duration: Dec 20, 2018 Frequency: At least 5 of 7 days/Wk (IRF) Estimated Hrs Per Day: 1.5 hours per day Patient and/or Family Agrees t: Yes Safety Risks/Education Patient Education: Gait Training, Transfer Techniques, Steps, Correct Positioning, Safety Issues Teaching Recipient: Patient Teaching Methods: Demonstration, Discussion Response to Teaching: Verbalize Understanding, Return Demonstration, Reinforcement Needed Time/GCodes Time In: 900 Time Out: 1000 Total Billed Treatment Time: 60 Total Billed Treatment 1,EX25m,FA15m,GT20m G Codes Necessary: No JUAN KIRKLAND COURT ORDERLY Dec 13, 2018 10:14
--- NOTE | 2018-12-13 10:23 | NUR ---
PT EATING WELL, 75% MEALS. WT STABLE. INTAKE MEETING NEEDS AT THIS TIME. CONT SAME.
--- NOTE | 2018-12-13 14:53 | Therapy Group Daily Note ---
Therapy Daily Group Note Patient Education Topic Home Safety, Exercises Exercises LE Seated Exercise, UE Exercise Session Ratio (pt:therapist): 3:1 Goal of Session: Home Safety Strategies, UE/LE Strengthing, Safety with Transfers Goal Met for this Session: Yes Pt Benefit of Group: Contributions to Others, F/U Use of Strategies @Home, Increased Functional Safety, Increased Functional Strength, Improved Cognition, Recognition of Peers, Socialization Other/Notes Pt ambulated to OT/PT group using [facility]WW in [facility]. Group consisted of introductions (name, place, worst fall), socialization, UE/LE seated exercises using cans of food, educational topics of home safety and home exercises. Pt introduced self appropriately and actively listened to peers. When asked question about home safety pt able to give correct answers 100% of the time. Completed UE/LE seated exercises without difficulty. Pt acknowledged and verbalized understanding of educational topics. Able to give personal strategies and experiences throughout group. After therapy, pt lying in bed with call light/phone in reach. All needs met in room. Start Time: 13:00 Stop Time: 14:15 Total Billed Treatment Time: 75 Total Billed Treatment 1-GRP JAMIE NELSON Dec 13, 2018 14:53
[2018-12-13 18:00] VITALS: BP 148/71
[2018-12-13] MEDS: BACLOFEN 10 MG (LIORESAL) TAB PO PRN (21:10)
[2018-12-13] MEDS: MELATONIN 3 MG TABLET PO SCH (21:10)
[2018-12-14 05:12] VITALS: BP 136/70
[2018-12-14] MEDS: guaiFENesin (MUCINEX) 600 MG TAB PO SCH (08:54)
[2018-12-14] MEDS: HYDROcodone/APAP 10 MG/325 MG (LORTAB) TAB PO PRN (08:54)
[2018-12-14] MEDS: ENOXAPARIN 30 MG/0.3 ML (LOVENOX) SYR SC SCH (08:54)
[2018-12-14] MEDS: BACLOFEN 10 MG (LIORESAL) TAB PO PRN (08:54)
[2018-12-14] MEDS: ASPIRIN E.C. 325 MG (ECOTRIN) TABLET PO SCH (08:54)
[2018-12-14] MEDS: prednisoLONE 1% OPTH (PRED FORTE) 5 ML BTL OP SCH (08:55)
[2018-12-14] MEDS ORDERED: ASPI325T32 PO (09:11)
[2018-12-14] MEDS ORDERED: HYDR-3820 PO (09:11)
[2018-12-14] MEDS ORDERED: BACL10TA PO (09:11)
[2018-12-14] MEDS ORDERED: TRAM50TA2 PO (09:11)
--- NOTE | 2018-12-14 09:12 | Discharge Summary ---
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 Post op anemia Constipation acute now resolved Somatic complaints Discharge Summary Discharge Physical Examination Allergies: Coded Allergies: Sulfa (Sulfonamide Antibiotics) (Unverified Allergy, Unknown, 12/02/18) lactose (Verified Allergy, Unknown, 12/02/18) Vitals & I&Os Vital Signs Date Time Temp Pulse Resp B/P (MAP) Pulse Ox O2 Delivery O2 Flow Rate FiO2 12/14/18 09:00 Room Air 12/14/18 05:12 98.0 94 18 136/70 (92) 96 Hospital Course Was the Problem List Reviewed?: Yes Hospital course: Patient has a lengthy hospital course in inpatient rehabilitation after undergoing an uncomplicated repair for left hip fracture sustained in a fall. She spent 11 days total in inpatient rehabilitation. Labs remained stable although postop anemia remained but asymptomatic and no indication for transfusion. Blood pressure remained stable home medication was restarted and bowel function returned back to normal. Physical therapy worked on safety management with fall prevention and maintained walker assistance. She had no falls or decompensation during hospital course. She did respond to baclofen 4 times a day along with periodic hydrocodone and had no ill effects from this medication so they were discharged with the patient could've via [facility] skilled care. Labs (last 24 hrs) Laboratory Tests 12/08/18 05:40: White Blood Count 7.3, Red Blood Count 3.08L, Hemoglobin 9.8L, Hematocrit 30L, Mean Corpuscular Volume 98, Mean Corpuscular Hemoglobin 32, Mean Corpuscular Hemoglobin Concent 33, Red Cell Distribution Width 12.6, Platelet Count 379, Mean Platelet Volume 8.8, Neutrophils (%) (Auto) 50, Lymphocytes (%) (Auto) 25, Monocytes (%) (Auto) 12, Eosinophils (%) (Auto) 13H, Basophils (%) (Auto) 1, Neutrophils # (Auto) 3.6, Lymphocytes # (Auto) 1.8, Monocytes # (Auto) 0.9, Eosinophils # (Auto) 0.9H, Basophils # (Auto) 0.1, Sodium Level 144, Potassium Level 3.8, Chloride Level 108H, Carbon Dioxide Level 26, Anion Gap 10, Blood Urea Nitrogen 11, Creatinine 0.64, Estimat Glomerular Filtration Rate > 60, BUN/ Creatinine Ratio 17, Glucose Level 90, Calcium Level 8.7, Corrected Calcium 9.7 , Total Bilirubin 0.4, Aspartate Amino Transf (AST/SGOT) 22, Alanine Aminotransferase (ALT/SGPT) 17, Alkaline Phosphatase 67, Total Protein 5.1L, Albumin 2.8L 12/09/18 11:30: Glucometer 85 Pending Labs Laboratory Tests 12/08/18 05:40: White Blood Count 7.3, Red Blood Count 3.08, Hemoglobin 9.8, Hematocrit 30, Mean Corpuscular Volume 98, Mean Corpuscular Hemoglobin 32, Mean Corpuscular Hemoglobin Concent 33, Red Cell Distribution Width 12.6, Platelet Count 379, Mean Platelet Volume 8.8, Neutrophils (%) (Auto) 50, Lymphocytes (%) (Auto) 25, Monocytes (%) (Auto) 12, Eosinophils (%) (Auto) 13, Basophils (%) (Auto) 1, Neutrophils # (Auto) 3.6, Lymphocytes # (Auto) 1.8, Monocytes # (Auto) 0.9, Eosinophils # (Auto) 0.9, Basophils # (Auto) 0.1, Sodium Level 144, Potassium Level 3.8, Chloride Level 108, Carbon Dioxide Level 26, Anion Gap 10, Blood Urea Nitrogen 11, Creatinine 0.64, Estimat Glomerular Filtration Rate > 60, BUN/ Creatinine Ratio 17, Glucose Level 90, Calcium Level 8.7, Corrected Calcium 9.7 , Total Bilirubin 0.4, Aspartate Amino Transf (AST/SGOT) 22, Alanine Aminotransferase (ALT/SGPT) 17, Alkaline Phosphatase 67, Total Protein 5.1, Albumin 2.8 12/09/18 11:30: Glucometer 85 Discharge Home Medications: Active Scripts Active Tramadol HCl 50 Mg Tablet 50 Mg PO Q6H PRN Hydrocodon-Acetaminophn 10-325 (Hydrocodone/Acetaminophen) 1 Each Tablet 1 Ea PO Q4H PRN Aspirin EC (Aspirin) 325 Mg Tablet.dr 325 Mg PO DAILY Baclofen 10 Mg Tablet 10 Mg PO QID PRN Reported Prednisolone Acetate 5 Ml Drops.susp 1 Drop OU 1300 1% Melatonin 5 Mg Tablet 5 Mg PO HS Fish Oil 1,000 mg Capsule ([place] 3 Polyunsat Fatty Acids) 1,000 Mg Cap 1,000 Mg PO DAILY Calcium 600 + Vit D 200 Tablet (Calcium Carbonate/Vitamin D3) 1 Each Tablet 1 Tab PO BID Multivitamins with Minerals (Multivitamin with Minerals) 1 Each Tablet 1 Tab PO DAILY Colace (Docusate Sodium) 100 Mg Capsule 100 Mg PO HS Tylenol Extra Strength (Acetaminophen) 500 Mg Tablet 500 Mg PO Q4H PRN Artificial Tears Drops (Glycerin/Propylene Glycol) 30 Ml Drops 1 Drop OU TID Instructions to patient/family Please see electronic discharge instructions given to patient. Diagnosis/Problems Diagnosis/Problems (1) Hip fracture (2) Advanced age Status: Chronic (3) Anemia due to acute blood loss Status: Acute (4) Corneal transplant status Status: Chronic Clinical Quality Measures DVT/VTE Risk/Contraindication: Risk Factor Score Per Nursin RFS Level Per Nursing on Admit: 4+=Very High MICHELLE LARSON DO Dec 14, 2018 09:12
[2018-12-14] MEDS: SENNA W/DOCUSATE (SENOKOT S) TABLET PO SCH (09:43)
--- NOTE | 2018-12-14 11:09 | Therapy Team Discharge Summary ---
Therapy Discharge Summary Discharge Recommendations Date of Discharge Therapy D/C Recommendations: Nursing Home (TCU/NH) Occupational Therapy Pt admitted to ARU following acute hospitalization for left hip fracture and hemiarthroplasty. On admission pt required mod assist for bathing, max assist for LE dressing, and min assist for transfers. Skilled OT intervention focused on ADL training, transfers, strengthening, and adaptive equipment training. Pt made good progress with therapy and by discharge is completing grooming independently; eating, bathing, and UE dressing with modified independence; and transfer, LE dressing, and toileting with SBA. Pt met OT LTG except toileting and toilet transfer. Pt discharging to SNF for continued care. D/C ARU OT at this time. Impaired Self-Care Skills PT Learning And Development Intern Goals Care Home Goals PT Learning And Development Intern Goals Time Frame: Dec 20, 2018 Transfers (B,C,W/C) (FIM): 6 Roll Left to Right (QC): 6 Sit to Lying (QC): 6 Lying-Sitting on Side/Bed(QC): 6 Sit to Stand (QC): 6 Chair/Ndz-wv-Nhcbd Xfer(QC): 6 Car Transfer (QC): 6 Does the Patient Walk: Yes Gait (FIM): 6 Gait distance (FIM): 3=150 ft Walk 10 feet (QC): 6 Walk 10ft-Uneven Surface(QC): 6 Walk 50ft with 2 Turns (QC): 6 Walk 150 ft (QC): 6 Gait Assistive Device: FWW Does the Pt use WC or Scooter?: No Stairs (FIM): 5 # of Steps: 4 1 Step (curb) (QC): 6 4 Steps (QC): 6 12 Steps (QC): 88 Stairs Level Of Assist: 6 Picking up an Object (QC): 88 OT Care Home Goals Learning And Development Intern Goals Time Frame: Dec 24, 2018 Eating (FIM): 6 (met-12/13/2018) Eating (QC): 6 (met) Oral Hygiene (QC): 6 (met-12/13/2018) Grooming(FIM): 6 (met-12/13/2018) Bathing(FIM): 5 Shower/Bathe Self (QC): 5 (met-12/13/2018) Upper Body Dressing(FIM): 6 (met-12/13/2018) Upper Body Dressing (QC): 6 (met-12/13/2018) Lower Body Dressing(FIM): 5 (met-12/13/2018) Lower Body Dressing (QC): 5 (not met) On/Off Footwear (QC): 6 (met-12/13/2018) Toileting(FIM): 6 (not met) Toileting Hygiene (QC): 6 (not met) Toilet/Commode Transfer(FIM): 6 (not met) Toilet/Commode Transfer (QC): 6 (not met) Shower Transfer(FIM): 5 Additional Goals: 1-Demonstrate ADL Tasks, 2-Verbalize Understanding, 3- ImproveStrength/Jennifer 1=Demonstrate adherence to instructed precautions during ADL tasks. 2=Patient will verbalize/demonstrate understanding of assistive devices/ modifications for ADL. 3=Patient will improve strength/tolerance for activity to enable patient to perform ADL's. LIANG MARIANO OT Dec 14, 2018 11:09
--- NOTE | 2018-12-14 14:13 | Therapy Team Discharge Summary ---
Therapy Discharge Summary Discharge Recommendations Date of Discharge Therapy D/C Recommendations: Intermediate (TCU/NH) Physical Therapy Patient came to rehab following a left hip fracture. Upon evaluation patient performed bed mobility with min/mod assist, transfers with min/CGA, car transfer min assist, ambulated 50' with a rolling walker with CGA/Soniya, and went up and down 1 step using a rolling walker with min/CGA. Patient has been performing bed mobility and transfer training, balance and endurance training, functional strengthening, stair training, gait training, and education. Patient has made fair progress but has only met her long-term goals for bed mobility and transfers. Now, patient performs bed mobility and transfers with mod I, car transfer mod I, ambulates 150' with a rolling walker with SBA ( including 50' with at least 2 turns of 90 degrees and 10' over an uneven surface ), and can go up and down 4 steps using 2 handrails with SBA. Patient is discharging from this facility today and will be discharged from PT at this time. Occupational Therapy Impaired Self-Care Skills PT Practice Assistant Goals Practice Assistant Goals PT Practice Assistant Goals Time Frame: Dec 20, 2018 Transfers (B,C,W/C) (FIM): 6 Roll Left to Right (QC): 6 Sit to Lying (QC): 6 Lying-Sitting on Side/Bed(QC): 6 Sit to Stand (QC): 6 Chair/Jhr-ux-Ignvz Xfer(QC): 6 Car Transfer (QC): 6 Does the Patient Walk: Yes Gait (FIM): 6 Gait distance (FIM): 3=150 ft Walk 10 feet (QC): 6 Walk 10ft-Uneven Surface(QC): 6 Walk 50ft with 2 Turns (QC): 6 Walk 150 ft (QC): 6 Gait Assistive Device: FWW Does the Pt use WC or Scooter?: No Stairs (FIM): 5 # of Steps: 4 1 Step (curb) (QC): 6 4 Steps (QC): 6 12 Steps (QC): 88 Stairs Level Of Assist: 6 Picking up an Object (QC): 88 OT Longterm Goals Practice Assistant Goals Time Frame: Dec 24, 2018 Eating (FIM): 6 (met-12/13/2018) Eating (QC): 6 (met) Oral Hygiene (QC): 6 (met-12/13/2018) Grooming(FIM): 6 (met-12/13/2018) Bathing(FIM): 5 Shower/Bathe Self (QC): 5 (met-12/13/2018) Upper Body Dressing(FIM): 6 (met-12/13/2018) Upper Body Dressing (QC): 6 (met-12/13/2018) Lower Body Dressing(FIM): 5 (met-12/13/2018) Lower Body Dressing (QC): 5 (not met) On/Off Footwear (QC): 6 (met-12/13/2018) Toileting(FIM): 6 (not met) Toileting Hygiene (QC): 6 (not met) Toilet/Commode Transfer(FIM): 6 (not met) Toilet/Commode Transfer (QC): 6 (not met) Shower Transfer(FIM): 5 Additional Goals: 1-Demonstrate ADL Tasks, 2-Verbalize Understanding, 3- ImproveStrength/Jennifer 1=Demonstrate adherence to instructed precautions during ADL tasks. 2=Patient will verbalize/demonstrate understanding of assistive devices/ modifications for ADL. 3=Patient will improve strength/tolerance for activity to enable patient to perform ADL's. MADHU RAZO PT Dec 14, 2018 14:13
== END 2018-12-14 13:30 | DRG 560 ==
PROVIDERS: ADMIT Internal Medicine; ATTEND Internal Medicine
DX: S72.002D Fracture of unspecified part of neck of left femur, subsequent encounter for closed fracture with routine healing (principal); D62 Acute posthemorrhagic anemia; K59.00 Constipation, unspecified; Z94.7 Corneal transplant status; W19.XXXD Unspecified fall, subsequent encounter; Y92.009 Unspecified place in unspecified non-institutional (private) residence as the place of occurrence of the external cause
CPT/HCPCS: 36415; 80053; 82962; 85025

== ENCOUNTER → 2018-12-31 | Outpatient (CLI) | payer MEDICARE, OTHER ==
[~2018-12-31] MED LIST changes: +ACET-2267 PO; +BACL10TA PO; +CALC-6 PO; +DOCU-143 PO; +GLYC30DR4 OU; +MELA5TAB14 PO; +MULT-166 PO; +OMG1KC PO; +PRED5DRO17 OU; +RT-ALBUTEROL SULF 2.5 MG/3 ML PRE-MIX VIAL INH ONE; +RT-ALBUTEROL SULF 2.5 MG/3 ML PRE-MIX VIAL ONE; +TRAM50TA2 PO
== END ==
LOC: RT 10:15
PROVIDERS: ATTEND Nurse Practitioner Family
DX: J30.9 Allergic rhinitis, unspecified (principal); R09.02 Hypoxemia; R91.8 Other nonspecific abnormal finding of lung field
CPT/HCPCS: 94060; 94726; 94729

== ENCOUNTER 2019-01-14 15:30 | Emergency (ER) | payer MEDICARE, OTHER ==
[~2019-01-14] VITALS: Ht 154.9 cm; Wt 52.2 kg
[~2019-01-14 15:30] MED LIST changes: -RT-ALBUTEROL SULF 2.5 MG/3 ML PRE-MIX VIAL INH ONE; -RT-ALBUTEROL SULF 2.5 MG/3 ML PRE-MIX VIAL ONE
--- NOTE | 2019-01-14 15:59 | ED Fall/Injury ---
General Chief Complaint: Trauma-Non Activation Stated Complaint: FALL/CHIN LAC Nursing Triage Note: Pt fell at home after becoming dizzy. Pt states she felt herself getting dizzy and tried to sit in a chair but was found on the floor by family. Pt has a small lac on chin and is complaining of Right hip pain. Source: patient Exam Limitations: no limitations History of Present Illness Date Seen by Provider: January 14, 2019 Time Seen by Provider: 15:57 Initial Comments To ER per private vehicle with reports of a laceration to her chin on some right -sided jaw pain. She tripped and fell just prior to arrival. States that she did lose consciousness. Denies neck pain or any other injury. She believes that she did lose consciousness but no headache dizziness or other symptoms currently. She is alert and oriented. Occurred: just prior to arrival Severity: moderate Injuries/Pain Location: other (jaw) Context: tripped Loss of Consciousness: no loss of consciousness Associated Symptoms (Fall): Denies Symptoms Allergies and Home Medications Allergies Coded Allergies: Sulfa (Sulfonamide Antibiotics) (Unverified Allergy, Unknown, 12/02/18) lactose (Verified Allergy, Unknown, 12/02/18) Home Medications Acetaminophen 500 Mg Tablet, 500 MG PO Q4H PRN for PAIN-MILD, (Reported) Aspirin 325 Mg Tablet.dr, 325 MG PO DAILY Prescribed by: MICHELLE LARSON on 12/14/18910 Baclofen 10 Mg Tablet, 10 MG PO QID PRN for MUSCLE SPASMS Prescribed by: MICHELLE LARSON on 12/14/18 09 Calcium Carbonate/Vitamin D3 1 Each Tablet, 1 TAB PO BID, (Reported) Docusate Sodium 100 Mg Capsule, 100 MG PO HS, (Reported) Glycerin/Propylene Glycol 30 Ml Drops, 1 DROP OU TID, (Reported) Hydrocodone Bit/Acetaminophen 1 Tab Tab, 1 EACH PO Q4-6HR PRN for PAIN-MODERATE Prescribed by: CARLTON ÁLVAREZ on 01/14/19 1715 Hydrocodone/Acetaminophen 1 Each Tablet, 1 EA PO Q4H PRN for PAIN-SEVERE Prescribed by: MICHELLE LARSON on 12/14/18 09 Melatonin 5 Mg Tablet, 5 MG PO HS, (Reported) Multivitamin with Minerals 1 Each Tablet, 1 TAB PO DAILY, (Reported) [place] 3 Polyunsat Fatty Acids 1,000 Mg Cap, 1,000 MG PO DAILY, (Reported) Prednisolone Acetate 5 Ml Drops.susp, 1 DROP OU 1300, (Reported) 1% Tramadol HCl 50 Mg Tablet, 50 MG PO Q6H PRN for PAIN-MODERATE Prescribed by: MICHELLE LARSON on 12/14/18 0911 Patient Home Medication List Home Medication List Reviewed: Yes Review of Systems Review of Systems Constitutional: see HPI Eyes: No Symptoms Reported Ears, Nose, Mouth, Throat: no symptoms reported Respiratory: no symptoms reported Cardiovascular: no symptoms reported Genitourinary: no symptoms reported Musculoskeletal: no symptoms reported Past Prwrjuu-Jcxoms-Kxhaox Hx Patient Social History 2nd Hand Smoke Exposure: No Recent Foreign Travel: No Contact w/Someone Who Travel: No Recent Infectious Disease Expo: No Recent Hopitalizations: Yes Immunizations Up To Date Date of Pneumonia Vaccine: Dec 04, 2017 Date of Influenza Vaccine: Jun 02, 2018 Seasonal Allergies Seasonal Allergies: Yes Past Medical History Surgeries: Yes Eye Surgery, Orthopedic Respiratory: No Cardiac: Yes Neurological: Yes Female Reproductive Disorders: Denies Sexually Transmitted Disease: No HIV/AIDS: No Genitourinary: No Gastrointestinal: Yes Colitis, Hemorrhoids, Chronic Diarrhea, Polyps, Irritable Bowel Musculoskeletal: Yes Arthritis, Back Injury, Chronic Back Pain, Fractures Endocrine: No HEENT: Yes (CORNEA TRANSPLANT) Loss of Vision: Denies Hearing Impairment: Denies Cancer: No Psychosocial: No Integumentary: No Blood Disorders: No Family Medical History Patient reports no known family medical history. Physical Exam Vital Signs Vital Signs - First Documented 01/14/19 15:30 Temp 97.7 Pulse 84 Resp 14 B/P (MAP) 146/75 (98) Capillary Refill : Less Than 3 Seconds Height, Weight, BMI Height: 5'1.00" Weight: 115lbs. 0.0oz. 52.437018ik; 19.4 BMI Method:Estimated General Appearance: WD/WN, no apparent distress HEENT: PERRL/EOMI, normal ENT inspection, TMs normal, pharynx normal, other ( No obvious jaw deformity, there is a 1.5 semi-laceration to the inferior aspect of the chin. Depth is to the subcutaneous venous tissue.) Neck: non-tender, full range of motion Cardiovascular: regular rate, rhythm Respiratory: no respiratory distress, no accessory muscle use Gastrointestinal: normal bowel sounds, non tender, soft Neurologic/Psychiatric: alert, normal mood/affect, oriented x 3 Skin: normal color, warm/dry Procedures/Interventions Wound Location: Face Wound Length (cm): 2 Wound's Depth, Shape: linear, sub Q Wound Explored: clean Irrigated w/ Saline (ccs): 40 Anesthesia: 1% Lidocaine Suture: Ethlion Suture Size: 5-0 Number of Sutures: 6 Layer Closure?: 1 Number Deep Layer Sutures: 0 Progress 2 mL of 1% lidocaine without epinephrine. Wound then scrubbed with chlorhexidine /saline solution then treated with 40 mL of saline. Closed with 6 simple interrupted sutures size 5-0 Ethilon. Progress/Results/Core Measures Results/Orders My Orders Orders - CARLTON ÁLVAREZ APRN Ct Head/Face/Cervical Wo (01/14/19 15:56) Lidocaine 1% Inj 20 Ml (Xylocaine 1% Inj (01/14/19 16:00) Medications Given in ED Current Medications Medications Dose Ordered Sig/Neftali Route Start Time Stop Time Status Last Admin Dose Admin Lidocaine HCl 2 ml ONCE ONCE INJ 01/14/19 16:00 01/14/19 16:01 DC 01/14/19 16:15 2 ML Vital Signs/I&O 01/14/19 15:30 Temp 97.7 Pulse 84 Resp 14 B/P (MAP) 146/75 (98) Blood Pressure Mean: 98 Diagnostic Imaging Diagonstic Imaging: Xray Comments NAME: MAUREEN RODNEY [facility] REC#: [id number] PT STATUS: REG ER : 1930 PHYSICIAN: CARLTON ÁLVAREZ APRN ADMIT DATE: 01/14/19/ER Draft Date of Exam:01/14/19 CT HEAD/FACE/CERVICAL WO PROCEDURE: CT head, face, and cervical spine without contrast. TECHNIQUE: Multiple contiguous axial images were obtained through the head, neck, and facial bones without the use of intravenous contrast. Sagittal and coronal reformations through the cervical spine and facial bones were also performed. Auto Exposure Controls were utilized during the CT exam to meet ALARA standards for radiation dose reduction. DATE: January 14, 2019. COMPARISON: CT head, August 03, 2010. INDICATION: 88-year-old female, fall. Laceration to chin. Fall on right side of head and face. Neck pain. FINDINGS: There is mild proportional prominence of the ventricles and CSF spaces compatible with mild cerebral volume loss. There are areas of low attenuation in the periventricular and subcortical white matter likely reflecting mild changes of chronic small vessel ischemic disease. There is no mass effect or midline shift. There is no acute intracranial hemorrhage. There is no abnormal extra-axial fluid collection. The temporomandibular joints are normally aligned. There is a nondisplaced vertically oriented fracture involving the right mandibular condyle best seen on coronal image 63. The bony nasal septum is near midline. There is partial opacification within the right ethmoidal air cells. There is no air-fluid level within the paranasal sinuses. Mastoid air cells and middle ears are well aerated, bilaterally. There is no identified acute maxillofacial bone fracture. The globes appear grossly intact. There is no retro-orbital hematoma. There are bilateral carotid vascular calcifications. There is no identified facet joint subluxation or dislocation. There are multilevel advanced facet degenerative changes of the cervical spine. There is grade 1 anterolisthesis of C3 on C4 and also of C4 on C5. There is no asymmetric widening of the cervical disc spaces. There are motion limitations of the exam which do particularly limit reformat evaluation. There is no identified acute fracture of the cervical spine. Visualized portions of the lung apices are clear. CT is limited for assessment of disc pathology as well as additional nonbony causes of foraminal and spinal stenosis. IMPRESSION: 1. Nondisplaced vertically oriented fracture involving the right mandibular condyle. 2. No identified acute intracranial abnormality. 3. No identified acute posttraumatic abnormality of the cervical spine. Dictated on workstation # [id number] Dict: 01/14/19 1652 Trans: 01/14/19 1703 PJE [id number] Interpreted by: ELVIA MADDOX MD Electronically signed by: Departure Communication (Admissions) [id number] discussed with the patient and her daughter at the bedside the fracture and the need for soft diet with minimal chewing for about 2 weeks, follow-up with Dr. Bell for primary care. Impression Primary Impression: Fall at home Qualified Codes: W19.XXXA - Unspecified fall, initial encounter; Y92.009 - Unspecified place in unspecified non-institutional (private) residence as the place of occurrence of the external cause Additional Impressions: Chin laceration Qualified Codes: S01.81XA - Laceration without foreign body of other part of head, initial encounter Closed fracture of condylar process of mandible Qualified Codes: S02.611A - Fracture of condylar process of right mandible, initial encounter for closed fracture Disposition: 01 HOME, SELF-CARE Condition: Stable Departure-Patient Inst. Decision time for Depature: 15:59 Referrals: ALEXX BELL DDJAY STINSON DO (PCP/Family) Primary Care Physician Patient Instructions: Laceration Repair With Stitches (DC) Add. Discharge Instructions: 1. Return to ER to have the stitches removed in about 5-7 days 2. You may shower allowing water run over this started this evening 3. Return to ER for any concerns. All discharge instructions reviewed with patient and/or family. Voiced understanding. Scripts Hydrocodone Bit/Acetaminophen (Hydrocodone/Acetaminophen 5/325mg Tablet) 1 Tab Tab 1 EACH PO Q4-6HR PRN for PAIN-MODERATE MDD 10 for 3 Days, #10 TAB Prov: CARLTON ÁLVAREZ APRN 01/14/19 Copy Copies To 1: JAY LARSON PETER J APRN January 14, 2019 15:59
[2019-01-14] MEDS ORDERED: LIDOCAINE 1% INJ 20 ML 20 ML VIAL INJ ONE (16:00)
--- NOTE | 2019-01-14 17:04 | Diagnostic Imaging Report ---
PROCEDURE: CT head, face, and cervical spine without contrast. TECHNIQUE: Multiple contiguous axial images were obtained through the head, neck, and facial bones without the use of intravenous contrast. Sagittal and coronal reformations through the cervical spine and facial bones were also performed. Auto Exposure Controls were utilized during the CT exam to meet ALARA standards for radiation dose reduction. DATE: January 14, 2019. COMPARISON: CT head, August 03, 2010. INDICATION: 88-year-old female, fall. Laceration to chin. Fall on right side of head and face. Neck pain. FINDINGS: There is mild proportional prominence of the ventricles and CSF spaces compatible with mild cerebral volume loss. There are areas of low attenuation in the periventricular and subcortical white matter likely reflecting mild changes of chronic small vessel ischemic disease. There is no mass effect or midline shift. There is no acute intracranial hemorrhage. There is no abnormal extra-axial fluid collection. The temporomandibular joints are normally aligned. There is a nondisplaced vertically oriented fracture involving the right mandibular condyle best seen on coronal image 63. The bony nasal septum is near midline. There is partial opacification within the right ethmoidal air cells. There is no air-fluid level within the paranasal sinuses. Mastoid air cells and middle ears are well aerated, bilaterally. There is no identified acute maxillofacial bone fracture. The globes appear grossly intact. There is no retro-orbital hematoma. There are bilateral carotid vascular calcifications. There is no identified facet joint subluxation or dislocation. There are multilevel advanced facet degenerative changes of the cervical spine. There is grade 1 anterolisthesis of C3 on C4 and also of C4 on C5. There is no asymmetric widening of the cervical disc spaces. There are motion limitations of the exam which do particularly limit reformat evaluation. There is no identified acute fracture of the cervical spine. Visualized portions of the lung apices are clear. CT is limited for assessment of disc pathology as well as additional nonbony causes of foraminal and spinal stenosis. IMPRESSION: 1. Nondisplaced vertically oriented fracture involving the right mandibular condyle. 2. No identified acute intracranial abnormality. 3. No identified acute posttraumatic abnormality of the cervical spine. Dictated by: Dictated on workstation # [id number]
[2019-01-14] MEDS ORDERED: ACHD5005 PO (17:15)
[2019-01-14 17:26] VITALS: BP 142/80
== END 2019-01-14 17:26 | disposition home or self-care (01) ==
LOC: EDUNIT# 15:30 → ER 15:31
DX: S02.611A Fracture of condylar process of right mandible, initial encounter for closed fracture (principal); S01.81XA Laceration without foreign body of other part of head, initial encounter; K58.9 Irritable bowel syndrome, unspecified; Z94.7 Corneal transplant status; Z88.2 Allergy status to sulfonamides; Z88.8 Allergy status to other drugs, medicaments and biological substances; Z79.82 Long term (current) use of aspirin; Z79.52 Long term (current) use of systemic steroids; Z98.890 Other specified postprocedural states; Z86.010 Personal history of colon polyps; Z87.19 Personal history of other diseases of the digestive system; W01.0XXA Fall on same level from slipping, tripping and stumbling without subsequent striking against object, initial encounter; Y92.009 Unspecified place in unspecified non-institutional (private) residence as the place of occurrence of the external cause
CPT/HCPCS: 12011; 12051; 70450; 70486; 72125

== ENCOUNTER 2019-11-18 15:52 | Emergency (ER) | payer MEDICARE, OTHER ==
[~2019-11-18] VITALS: Ht 162 cm; Wt 106.0 kg
[~2019-11-18 15:52] MED LIST changes: +ACHD5005 PO; +ACHYD1T PO; -HYDR-3820 PO; -TRAM50TA2 PO; +TRM50T PO
--- NOTE | 2019-11-18 16:33 | ED Fall/Injury ---
General Chief Complaint: Trauma-Non Activation Stated Complaint: FELL/BODY PAIN Nursing Triage Note: PT STATES SHE FELL THURSDAY AM HURTING HER FACE. BECAME SORE EVERY WHERE. TODAY COMPLAINS OF BACK AND CHEST PAIN. LARGE BRUISE NOTED ON CHEST. Source: patient, family Exam Limitations: no limitations History of Present Illness Date Seen by Provider: Nov 18, 2019 Time Seen by Provider: 16:13 Initial Comments Here with report of fall Thursday morning hitting her face on a bedside table. She did not notice any other injuries until later that night when she had notic ed bruising across the anterior upper part of her left chest. Yesterday and today she is having increasing back and chest pain with some difficulty breathing and that it hurts to take a deep breath. Denies fever or chills. Denies loss of consciousness. She is not on blood thinners. Occurred: other (3 days ago) Severity: moderate Injuries/Pain Location: face, neck, chest, back Context: unknown Loss of Consciousness: no loss of consciousness Modifying Factors: Worse With Movement; Improves With Rest Associated Symptoms (Fall): No Abdominal Pain, No Confusion, No Headache, No Nausea/Vomiting, No Neck Pain Allergies and Home Medications Allergies Coded Allergies: Sulfa (Sulfonamide Antibiotics) (Unverified Allergy, Unknown, 12/02/18) lactose (Verified Allergy, Unknown, 12/02/18) Home Medications Acetaminophen 500 Mg Tablet, 500 MG PO Q4H PRN for PAIN-MILD, (Reported) Aspirin 325 Mg Tablet.dr, 325 MG PO DAILY Prescribed by: MICHELLE LARSON on 12/14/18910 Baclofen 10 Mg Tablet, 10 MG PO QID PRN for MUSCLE SPASMS Prescribed by: MICHELLE LARSON on 12/14/18910 Calcium Carbonate/Vitamin D3 1 Each Tablet, 1 TAB PO BID, (Reported) Docusate Sodium 100 Mg Capsule, 100 MG PO HS, (Reported) Glycerin/Propylene Glycol 30 Ml Drops, 1 DROP OU TID, (Reported) Hydrocodone Bit/Acetaminophen 1 Each Tablet, 1 EA PO Q4H PRN for PAIN-SEVERE Prescribed by: MICHELLE LARSON on 12/14/18 09 Hydrocodone Bit/Acetaminophen 1 Tab Tab, 1 EACH PO Q4-6HR PRN for PAIN-MODERATE Prescribed by: CARLTON ÁLVAREZ on 01/14/19 1715 Melatonin 5 Mg Tablet, 5 MG PO HS, (Reported) Multivitamin with Minerals 1 Each Tablet, 1 TAB PO DAILY, (Reported) [place] 3 Polyunsat Fatty Acids 1,000 Mg Cap, 1,000 MG PO DAILY, (Reported) Prednisolone Acetate 5 Ml Drops.susp, 1 DROP OU 1300, (Reported) 1% Tramadol HCl 50 Mg Tablet, 50 MG PO Q6H PRN for PAIN-MODERATE Prescribed by: MICHELLE LARSON on 12/14/18 0911 Tramadol HCl 50 Mg Tablet, 50 MG PO Q6H PRN for PAIN Prescribed by: KIMBERLY VILLASENOR on 11/18/19 1815 Patient Home Medication List Home Medication List Reviewed: Yes Review of Systems Review of Systems Constitutional: see HPI; No chills, No fever Eyes: No Symptoms Reported Ears, Nose, Mouth, Throat: no symptoms reported Respiratory: see HPI; No cough, No wheezing Cardiovascular: chest pain; No edema Gastrointestinal: No abdominal pain, No nausea, No vomiting Musculoskeletal: see HPI, back pain, muscle pain, muscle stiffness; No neck pain Skin: change in color; No lesions Psychiatric/Neurological: See HPI, Headache Past Lvghonp-Fpybsy-Nqqqxf Hx Past Med/Social Hx: Reviewed Nursing Past Med/Soc Hx Patient Social History Alcohol Use: Denies Use Recreational Drug Use: No Smoking Status: Never a Smoker 2nd Hand Smoke Exposure: No Recent Foreign Travel: No Contact w/Someone Who Travel: No Recent Infectious Disease Expo: No Recent Hopitalizations: No Immunizations Up To Date Date of Pneumonia Vaccine: Dec 04, 2017 Date of Influenza Vaccine: Jun 02, 2018 Seasonal Allergies Seasonal Allergies: Yes Past Medical History Surgeries: Yes Eye Surgery, Orthopedic Respiratory: No Cardiac: No Neurological: No Female Reproductive Disorders: Denies Sexually Transmitted Disease: No HIV/AIDS: No Genitourinary: No Gastrointestinal: Yes Colitis, Hemorrhoids, Chronic Diarrhea, Polyps, Irritable Bowel Musculoskeletal: Yes Arthritis, Back Injury, Chronic Back Pain, Fractures Endocrine: No HEENT: Yes (CORNEA TRANSPLANT) Loss of Vision: Denies Hearing Impairment: Denies Cancer: No Psychosocial: No Integumentary: No Blood Disorders: No Family Medical History Reviewed Nursing Family Hx Patient reports no known family medical history. No Pertinent Family Hx Physical Exam Vital Signs Vital Signs - First Documented 11/18/19 15:55 Temp 37.0 Pulse 88 Resp 16 B/P (MAP) 186/72 (110) Pulse Ox 96 O2 Delivery Room Air Capillary Refill : Less Than 3 Seconds Height, Weight, BMI Height: 5'1.00" Weight: 115lbs. 0.0oz. 52.037469no; 40.00 BMI Method:Estimated General Appearance: WD/WN, no apparent distress HEENT: PERRL/EOMI, pharynx normal, other (no deformity of the lower jaw or looseness within the bony structure. Tenderness to the chin between the chin and lip with her is mild bruising.) Neck: non-tender, full range of motion, supple, normal inspection Cardiovascular: regular rate, rhythm, no murmur Respiratory: lungs clear, normal breath sounds, other (left upper anterior chest wall pain that is reproducible and is in the area of the 6 x 12 cm ecchymosis) Gastrointestinal: non tender, soft Back: normal inspection, no CVA tenderness, no vertebral tenderness Extremities: non-tender, no pedal edema Neurologic/Psychiatric: alert, oriented x 3 Skin: warm/dry, ecchymosis (upper chest wall in the left) Paige Coma Score Best Eye Response: (4) Open Spontaneously Best Verbal Response: (5) Oriented Best Motor Response: (6) Obeys Commands Procedures/Interventions Suture Size: 5-0 Progress/Results/Core Measures Results/Orders My Orders Orders - KIMBERLY VILLASENOR MD Ct Chest Wo (11/18/19 16:15) Ct Head/Cervical Spine Wo (11/18/19 16:15) Ekg Tracing (11/18/19 16:16) Vital Signs/I&O 11/18/19 11/18/19 15:55 16:36 Temp 37.0 37.0 Pulse 88 88 Resp 16 16 B/P (MAP) 186/72 (110) 186/72 (110) Pulse Ox 96 96 O2 Delivery Room Air Room Air Blood Pressure Mean: 110 Progress Progress Note : Progress Note Seen and evaluated. CT head, neck and chest without contrast ordered secondary to fall. EKG done due to report of chest pain and that does not show any significant event. Monitor patient. Initial ECG Impression Date: Nov 18, 2019 Initial ECG Impression Time: 16:05 Initial ECG Rate: 86 Initial ECG Rhythm: Normal Sinus Comment Sinus rhythm with PACs. Left axis deviation. Left anterior fascicular block noted. Poor R-wave progression but suspect lead placement. No evidence of ST elevation AR. Changed from 08/03/20. Interpreted by me. Diagnostic Imaging Diagonstic Imaging: CT Plain Films/CT/US/NM/MRI: c-spine, head Comments [facility] [place], [place] NAME: MAUREEN RODNEY [facility] REC#: [id number] PT STATUS: REG ER : 1930 PHYSICIAN: KIMBERLY VILLASENOR MD ADMIT DATE: 11/18/19/ER Draft Date of Exam:11/18/19 CT HEAD/CERVICAL SPINE WO PROCEDURE: CT head and CT cervical spine without contrast. TECHNIQUE: Multiple contiguous axial images were obtained through the brain and cervical spine without the use of intravenous contrast. Sagittal and coronal reformations through the cervical spine were then performed. Auto Exposure Controls were utilized during the CT exam to meet ALARA standards for radiation dose reduction. INDICATION: Fell four days ago striking facial area. Patient has sore head. COMPARISON STUDY: CT scan the head and face from 01/14/2019. FINDINGS: CT of the head demonstrates mass effect, midline shift, hemorrhage or extra-axial fluid collections. No acute areas of ischemia are identified. Atrophy and white matter changes appear stable. No fractures are identified. The mastoid air cells and visualized portions of the paranasal sinuses are clear. Cervical spine: Noncontrast CT scan of the cervical spine demonstrates stable degenerative changes. No fractures are present. Approximately 3 mm anterolisthesis of C3 on C4 and 2 mm anterolisthesis of C4 on C5 appear stable. Degenerative changes throughout the spine have not appreciably changed. There is calcification of the right carotid bifurcation. Lung apices are clear. IMPRESSION: 1. 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 2. Stable degenerative changes of the cervical spine. Dictated on workstation # [id number] Dict: 11/18/19 1707 Trans: 11/18/19 [address] [facility] [id number] Interpreted by: ERLINDA PRESLEY MD Electronically signed by: Diagonstic Imaging: CT Plain Films/CT/US/NM/MRI: chest Comments NAME: MAUREEN RODNEY [facility] REC#: [id number] PT STATUS: REG ER : 1930 PHYSICIAN: KIMBERLY VILLASENOR MD ADMIT DATE: 11/18/19/ER Draft Date of Exam:11/18/19 CT CHEST WO PROCEDURE: CT chest without contrast. TECHNIQUE: Multiple contiguous axial images were obtained through the chest without the use of intravenous contrast. Auto Exposure Controls were utilized during the CT exam to meet ALARA standards for radiation dose reduction. INDICATION: Patient fell forward striking chest on dresser four days ago, striking anterior chest, with chest pain. COMPARISON STUDY: CT of the chest from 11/30/2018. FINDINGS: Examination demonstrates aneurysmal dilatation of the ascending aorta measuring 5 x 5.1 cm and has not appreciably changed. Mild calcification is seen within the aorta. The heart size is normal. No pleural or pericardial effusions are present. No abnormal adenopathy is present. The visualized portions of the abdomen appear normal. A 5 mm nodule in the right lower lobe now only measures 4 mm. This is seen on axial image #79. No new pulmonary nodules are present. There is no pneumothorax. No hematomas are seen in the chest wall. No fractures are identified. IMPRESSION: There are no acute findings. Mild aneurysmal dilatation of the ascending aorta is stable. A right lower lobe pulmonary nodule has decreased from 5 mm to 4 mm since November 2018. Dictated on workstation # [id number] Dict: 11/18/19 1713 Trans: 11/18/19 1732 [id number] Interpreted by: ERLINDA PRESLEY MD Electronically signed by: Departure Impression Primary Impression: Chest wall contusion Qualified Codes: S20.212A - Contusion of left front wall of thorax, initial encounter Additional Impression: Muscle strain Disposition: HOME, SELF-CARE Condition: Improved Departure-Patient Inst. Decision time for Depature: 18:13 Referrals: JAY LARSON DO (PCP/Family) Primary Care Physician Patient Instructions: Muscle Strain (DC), Contusion (DC) Add. Discharge Instructions: All discharge instructions reviewed with patient and/or family. Voiced understanding. Take medications as directed. You may take Tylenol 2 extra strength tablets ever y 6-8 hours as needed for pain. Use incentive spirometer as instructed. You should use that several times each hour while awake. Return for worse pain, fever, vomiting, weakness, breathing problems or other concerns as needed. Follow-up with your doctor early next week for recheck and further evaluation. Scripts Tramadol HCl (Tramadol HCl) 50 Mg Tablet 50 MG PO Q6H PRN for PAIN for 3 Days, #10 TAB 0 Refills Prov: KIMBERLY VILLASENOR MD 11/18/19 Copy Copies To 1: JAY LARSON TIMOTHY D MD Nov 18, 2019 16:33
--- NOTE | 2019-11-18 17:15 | Diagnostic Imaging Report ---
PROCEDURE: CT head and CT cervical spine without contrast. TECHNIQUE: Multiple contiguous axial images were obtained through the brain and cervical spine without the use of intravenous contrast. Sagittal and coronal reformations through the cervical spine were then performed. Auto Exposure Controls were utilized during the CT exam to meet ALARA standards for radiation dose reduction. INDICATION: Fell four days ago striking facial area. Patient has sore head. COMPARISON STUDY: CT scan the head and face from 01/14/2019. FINDINGS: CT of the head demonstrates mass effect, midline shift, hemorrhage or extra-axial fluid collections. No acute areas of ischemia are identified. Atrophy and white matter changes appear stable. No fractures are identified. The mastoid air cells and visualized portions of the paranasal sinuses are clear. Cervical spine: Noncontrast CT scan of the cervical spine demonstrates stable degenerative changes. No fractures are present. Approximately 3 mm anterolisthesis of C3 on C4 and 2 mm anterolisthesis of C4 on C5 appear stable. Degenerative changes throughout the spine have not appreciably changed. There is calcification of the right carotid bifurcation. Lung apices are clear. IMPRESSION: 1. 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 2. Stable degenerative changes of the cervical spine. Dictated by: Dictated on workstation # [id number]
--- NOTE | 2019-11-18 17:34 | Diagnostic Imaging Report ---
PROCEDURE: CT chest without contrast. TECHNIQUE: Multiple contiguous axial images were obtained through the chest without the use of intravenous contrast. Auto Exposure Controls were utilized during the CT exam to meet ALARA standards for radiation dose reduction. INDICATION: Patient fell forward striking chest on dresser four days ago, striking anterior chest, with chest pain. COMPARISON STUDY: CT of the chest from 11/30/2018. FINDINGS: Examination demonstrates aneurysmal dilatation of the ascending aorta measuring 5 x 5.1 cm and has not appreciably changed. Mild calcification is seen within the aorta. The heart size is normal. No pleural or pericardial effusions are present. No abnormal adenopathy is present. The visualized portions of the abdomen appear normal. A 5 mm nodule in the right lower lobe now only measures 4 mm. This is seen on axial image #79. No new pulmonary nodules are present. There is no pneumothorax. No hematomas are seen in the chest wall. No fractures are identified. IMPRESSION: There are no acute findings. Mild aneurysmal dilatation of the ascending aorta is stable. A right lower lobe pulmonary nodule has decreased from 5 mm to 4 mm since November 2018. Dictated by: Dictated on workstation # [id number]
[2019-11-18] MEDS ORDERED: TRM50T PO (18:15)
[2019-11-18 18:30] VITALS: BP 143/75
--- OUTSIDE RECORDS SUMMARY | 2019-11-22 16:37 | XMS REPORT | Encounter Summary ---
Author Author [facility] Address Unknown Phone Unavailable Care Team Providers Care Event Sales Assistant Name Role Phone PCP Unavailable Encounter Details Care Team Description Date Type Department Imer Henderson MD [address] [facility] [address] [place] [address] [phone] 07/26/1998 [facility] Encounter [address] [place] [address] Social History Date Tobacco Use Types Packs/Day Years Used Never Assessed Sex Assigned at Date Recorded Not on file Industry Job Start Date Occupation Not on file Not on file Not on file Travel End Travel History Travel Start No recent travel history available. 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
--- OUTSIDE RECORDS SUMMARY | 2019-11-22 16:37 | XMS REPORT | Encounter Summary ---
Author Author [facility] Address Unknown Phone Unavailable Care Team Providers Care Knife Setter Grinder Machine Name Role Phone PCP Unavailable Encounter Details Care Team Description Date Type Department Grey Patiño MD [address] [facility] [address] [place] [address] [phone] 05/28/2001 [facility] Encounter [address] [place] [address] Social History Date Tobacco Use Types Packs/Day [...] Date/Time Associated Diag nosis CULTURE, EYE Routine 05/28/2001 12:27 PM CDT documented in this encounter Results * Culture, Eye (05/28/2001 12:27 PM CDT) Specimen Other Narrative Performed At Report [facility] [id number] F 70 YRS SL BACTERIOLOGY PROCEDURE/ EYE CULTURE COLLECTED/ 05/28/01 1227 SOURCE/ DONOR CORNEA RECEIVED/ 05/28/011749 [id number] STARTED/ 05/28/011749 FINAL REPORT--- FINAL REPORT 05/31/01 1441 No Growth at 3 days Performing Organization Address City/State/Zipcode Ph one Number [facility] [address] [place], [place] [address] [place] documented in this encounter Visit Diagnoses Not on filedocumented in this encounter
--- OUTSIDE RECORDS SUMMARY | 2019-11-22 16:37 | XMS REPORT | Clinical Summary ---
Author Author [facility] Organization [facility] Address Unknown Phone Unavailable Care Team Providers Care Residential Pest Control Technician Name Role Phone PCP Unavailable Allergies Not on File Medications Not on file Active Problems Not on file Social History Date Tobacco Use Types Packs/Day Years Used Never Assessed Sex Assigned at Date Recorded Not on file Industry Job Start Date Occupation Not on file Not on file Not on file Travel End Travel History Travel Start No recent travel history available. Last Filed Vital Signs Not on file Plan of Treatment Not on file Results Not on filefrom Last 3 Months
--- OUTSIDE RECORDS SUMMARY | 2019-11-22 16:38 | XMS REPORT | Continuity of Care Document ---
Author Organization Unknown Address Unknown Phone Unavailable Allergies Active Description Code Type Severity Reaction Onset Reported/Identified Relationship to Patient Clinical Status Yes SULFA SULFA Mild N/A 08/03/2010 Yes lactose [id number] Drug Allergy Unknown N/A 12/02/2018 Yes Sulfa (Sulfonamide Antibiotics) [id number] Drug Allergy Unknown N/A 019 Medications There is no data. Problems Date [...] 733.00 11/08/2014 Ot V76.12 11/30/2018 Ot 733.00 OST EOPOROSIS NOS 11/30/2018 Ot V76.12 OTH SCREEN MAMMO- MALIGN NEOPLASM OF [place] 12/01/2018 Ot 733.00 OST EOPOROSIS NOS 12/01/2018 Ot V76.12 OT SCREEN MAMMO- MALIGN NEOPLASM OF [place] 12/03/2018 MICHELLE COLLADO DO Ot D 62 ACUTE POSTHEMORRHAGIC ANEMIA 12/03/2018 MICHELLE COLLADO DO Ot E86.0 DEHYDRATION 12/03/2018 MICHELLE COLLADO DO Ot E87.6 HYPOKALEMIA 12/03/2018 MICHELLE COLLADO DO F Ot R09.02 HYPOXEMIA 12/03/2018 TOBIAS SHULTZ, MICHELLE Marin Ot R19.7 DIARRHEA, UNSPECIFIED 12/03/2018 TOBIAS SHULTZ, MICHELLE Marin Ot R53.1 WEAKNESS 12/03/2018 TOBIAS SHULTZ, MICHELLE Marin Ot R91.1 SOLITARY PULMONARY NODULE 12/03/2018 TOBIAS SHULTZ, MICHELLE Marin Ot S72.002A FRACTURE OF UNSP PART OF NECK OF LEFT FE 12/03/2018 TOBIAS SHULTZ, MICHELLE Marin Ot W01.0XXA FALL SAME LEV FROM SLIP/TRIP W/O STRIKE 12/03/2018 TOBIAS SHULTZ, MICHELLE Marin Ot Y92.[address] IN [facility] ([facility] 12/03/2018 TOBIAS SHULTZ, MICHELLE Marin Ot Z87.19 PERSONAL HISTORY OF OTHER DISEASES OF TH 12/03/2018 TOBIAS SHULTZ, MICHELLE Marin Ot Z88.2 ALLERGY STATUS TO SULFONAMIDES STATUS 12/03/2018 TOBIAS SHULTZ MICHELLE Marin Ot 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 12/10/2018 LARSON DO, MICHELLE Ot D62 ACUTE POSTHEMORRHAGIC ANEMIA 12/10/2018 LARSON DO, MICHELLE Ot K59.00 CONSTIPATION, UNSPECIFIED 12/10/2018 LARSON DO, MICHELLE Ot S72.00 2D FX UNSP PART OF NK OF L FEMR, SUBS FOR C 12/10/2018 LARSON DO, MICHELLE Ot W19.XX XD UNSPECIFIED FALL, SUBSEQUENT ENCOUNTER 12/10/2018 LARSON DO, MICHELLE Ot Y92.[address] IN [facility] ([facility] 12/14/2018 LARSON DO, MICHELLE Ot D62 ACUTE POSTHEMORRHAGIC ANEMIA 12/14/2018 LARSON DO, MICHELLE Ot K59.00 CONSTIPATION, UNSPECIFIED 12/14/2018 LARSON DO, MICHELLE Ot S72.00 2D FX UNSP PART OF NK OF L FEMR, SUBS FOR C 12/14/2018 LARSON DO, MICHELLE Ot W19.XX XD UNSPECIFIED FALL, SUBSEQUENT ENCOUNTER 12/14/2018 LARSON DO, MICHELLE Ot Y92.[address] IN [facility] ([facility]IVATE 12/14/2018 LARSON DO, MICHELLE Ot 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 01/03/2019 TRISTAN RICHARDSON APRN Ot J30.9 ALLERGIC RHINITIS, UNSPECIFIED 01/03/2019 TRISTAN RICHARDSON APRN Ot R09.02 HYPOXEMIA 01/03/2019 TRISTAN RICHARDSON APRN Ot R91.8 OTHER NONSPECIFIC ABNORMAL FINDING OF DARSHAN 01/03/2019 TRISTAN RICHARDSON VENEER SHEET REPAIRER Ot J30.9 ALLERGIC RHINITIS, UNSPECIFIED 01/03/2019 TRISTAN RICHARDSON APRN Ot R09.02 HYPOXEMIA 01/03/2019 TRISTAN RICHARDSON APRN Ot R91.8 OTHER NONSPECIFIC ABNORMAL FINDING OF DARSHAN 01/14/2019 CARLTON ÁLVAREZ APRN Ot K58 .9 IRRITABLE BOWEL SYNDROME WITHOUT DIARRHE 01/14/2019 CARLTON ÁLVAREZ APRN Ot S01.81XA LACERATION W/O FOREIGN BODY OF OTH PART 01/14/2019 CARLTON ÁLVAREZ APRN Ot S02.611A FRACTURE OF CONDYLAR PROCESS OF RIGHT MA 01/14/2019 CARLTON ÁLVAREZ APRN Ot W01.0XXA FALL SAME LEV FROM SLIP/TRIP W/O STRIKE 01/14/2019 CARLTON ÁLVAREZ APRN Ot Y92.[address] [facility] [address] IN [facility] ([facility] 01/14/2019 CARLTON ÁLVAREZ APRN Ot Z79.52 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 PRODUCT MANAGER (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) USE OF SYSTEMIC STER 01/14/2019 CARLTON ÁLVAREZ APRN Ot Z79.82 REGULATORY PRODUCT MANAGER (CURRENT) USE OF ASPIRIN 01/14/2019 CARLTON ÁLVAREZ APRN Ot Z86.010 PERSONAL HISTORY OF COLONIC POLYPS 01/14/2019 CARLTON ÁLVAREZ APRN Ot Z87.19 PERSONAL HISTORY OF OTHER DISEASES OF 01/14/2019 CARLTON ÁLVAREZ APRN Ot Z88 .2 ALLERGY STATUS TO SULFONAMIDES STATUS 01/14/2019 CARLTON ÁLVAREZ APRN Ot Z88 .8 ALLERGY STATUS TO OTH DRUG/MEDS/BIOL SUB 01/14/2019 CARLTON ÁLVAREZ APRN Ot Z94 .7 CORNEAL TRANSPLANT STATUS 01/14/2019 CARLTON ÁLVAREZ APRN Ot Z98.890 OTHER SPECIFIED POSTPROCEDURAL STATES 01/17/2019 CARLTON ÁLVAREZ APRN Ot K58 .9 IRRITABLE BOWEL SYNDROME WITHOUT DIARRHE 01/17/2019 CARLTON ÁLVAREZ APRN Ot S01.81XA LACERATION W/O FOREIGN BODY OF OTH PART 01/17/2019 CARLTON ÁLVAREZ APRN Ot S02.611A FRACTURE OF CONDYLAR PROCESS OF RIGHT MA 01/17/2019 CARLTON ÁLVAREZ APRN Ot W01.0XXA FALL SAME LEV FROM SLIP/TRIP W/O STRIKE 01/17/2019 CARLTON ÁLVAREZ APRN Ot Y92.[address] [facility] [address] IN [facility] ([facility]IVATE 01/17/2019 CARLTON ÁLVAREZ APRN Ot Z79.52 REGULATORY PRODUCT MANAGER (CURRENT) USE OF SYSTEMIC STER 01/17/2019 CARLTON ÁLVAREZ APRN Ot Z79.82 REGULATORY PRODUCT MANAGER (CURRENT) USE OF ASPIRIN 01/17/2019 CARLTON ÁLVAREZ APRN Ot Z86.010 PERSONAL HISTORY OF COLONIC POLYPS 01/17/2019 CARLTON ÁLVAREZ APRN Ot Z87.19 PERSONAL HISTORY OF OTHER DISEASES OF TH 01/17/2019 CARLTON ÁLVAREZ APRN Ot Z88 .2 ALLERGY STATUS TO SULFONAMIDES STATUS 01/17/2019 CARLTON ÁLVAREZ APRN Ot Z88 .8 ALLERGY STATUS TO OT DRUG/MEDS/BIOL SUB 01/17/2019 CARLTON ÁLVAREZ APRN Ot Z94 .7 CORNEAL TRANSPLANT STATUS 01/17/2019 CARLTON ÁLVAREZ APRN Ot Z98.890 OTHER SPECIFIED POSTPROCEDURAL STATES 01/20/2019 TRISTAN RICHARDSON APRN Ot J30.9 ALLERGIC RHINITIS, UNSPECIFIED 01/20/2019 TRISTAN RICHARDSON APRN Ot R09.02 HYPOXEMIA 01/20/2019 TRISTAN RICHARDSON APRN Ot R91.8 OTHER NONSPECIFIC ABNORMAL FINDING OF DARSHAN 06/22/2019 Ot 733.00 OST EOPOROSIS NOS 06/22/2019 Ot V76.12 OT SCREEN MAMMO- MALIGN NEOPLASM OF [place]ADALUPE 06/22/2019 TRISTAN RICHARDSON APRN Ot J30.9 ALLERGIC RHINITIS, UNSPECIFIED 06/22/2019 TRISTAN RICHARDSON APRN Ot R09.02 HYPOXEMIA 06/22/2019 TRISTAN RICHARDSON APRN Ot R91.8 OTHER NONSPECIFIC ABNORMAL FINDING OF DARSHAN 06/23/2019 TRISTAN RICHARDSON APRN Ot J30.9 ALLERGIC RHINITIS, UNSPECIFIED 06/23/2019 TRISTAN RICHARDSON APRN Ot R09.02 HYPOXEMIA 06/23/2019 TRISTAN RICHARDSON APRN Ot R91.8 OTHER NONSPECIFIC ABNORMAL FINDING OF DARSHAN Procedures Code Description Performed By Per formed On [id number] RE PLACE L HIP JT, FEMORAL W METAL, UNCEM 11/30/2018 Results Test Result Range Complete blood count (CBC) with automate d white blood cell (WBC) differential - 11/30/18 13:50 Blood leukocytes automated count (number/volume) 11.4 10*3/uL 4.3-11.0 Blood erythrocytes automated count (number/volume) 3.68 10*6/uL 4.35-5.85 Venous blood hemoglobin measurement (mass/volume) 11.9 g/dL 11.5-16.0 Blood hematocrit (volume fraction) 36 % 35-52 Automated erythrocyte mean corpuscular volume 97 [ foz_us] 80-99 Automated erythrocyte mean corpuscular h emoglobin (mass per erythrocyte) 32 pg 25-34 Automated erythrocyte mean corpuscular h emoglobin concentration measurement (mass/volume) 33 g/dL 32-36 Automated erythrocyte distribution width ratio 12. 6 % 10.0- 14.5 Automated blood platelet count (count/volume) 214 10*3/uL [...] 10*3 1.0-4.0 Blood monocytes automated count (number/volume) 0. 6 10*3 0.0-1.0 Automated eosinophil count 0.0 10*3/uL 0 .0-0.3 Automated blood basophil count (count/volume) 0.0 10*3/uL 0.0-0.1 PT panel in platelet poor plasma by coag ulation assay - 11/30/18 13:50 Prothrombin time (PT) in platelet poor plasma by coagu lation assay 13.7 s 12.2-14.7 INR in platelet poor plasma or blood by coagulation as say 1.1 0.8-1.4 Comprehensive metabolic panel - 11/30/18 13:50 Serum or plasma sodium measurement (moles/volume) 140 mmol/L 135-145 Serum or plasma potassium measurement (moles/volume) 3.6 mmol/L 3.6-5.0 Serum or plasma chloride measurement (moles/volume) 105 mmol/L 98-107 Carbon dioxide 23 mmol/L 21-32 Serum or plasma anion gap determination (moles/volume) 12 mmol/L 5-14 Serum or plasma urea nitrogen measurement (mass/volume ) 22 mg/dL 7-18 Serum or plasma creatinine measurement (mass/volume) 0.87 mg/dL 0.60-1.30 Serum or plasma urea nitrogen/creatinine mass ratio 25 NRG Serum or plasma creatinine measurement w ith calculation of estimated glomerular filtration rate > NRG Serum or plasma glucose measurement (mass/volume) 128 mg/dL 70-105 Serum or plasma calcium measurement (mass/volume) 9.2 mg/dL 8.5-10.1 Serum or plasma total bilirubin measurement (mass/volu me) 0.4 mg/dL 0.1-1.0 Serum or plasma alkaline phosphatase lalit surement (enzymatic activity/volume) 61 U/L 40-136 Serum or plasma aspartate aminotransfera se measurement (enzymatic activity/volume) 29 U/L 5-34 Serum or plasma alanine aminotransferase measurement (enzymatic activity/volume) 21 U/L 0-55 Serum or plasma protein measurement (mass/volume) 6.7 g/dL 6.4-8.2 Serum or plasma albumin measurement (mass/volume) 3.9 g/dL 3.2-4.5 CALCIUM CORRECTED 9.3 mg/dL 8.5-10.1 [id number] - 11/30/18 13:50 [id number] SPECIMEN AVAILABLE NRG Blood manual differential performed dete ction - 11/30/18 13:50 Blood monocytes/100 leukocytes 3 [...] 1+ NRG Arterial blood gas measurement - 9 14:40 Blood pCO2 43 mm[Hg] 35-45 Blood pO2 79 mm[Hg] 79-93 Arterial blood bicarbonate measurement (moles/volume) 24 mmol/L 23-27 Arterial blood base excess by calculation -0.3 mmo l/L -2.5-2.5 Arterial blood oxygen saturation measurement 95 % 94-100 * Inhaled oxygen flow rate 3 L NRG Arterial blood pH measurement with patient temperature correction 7.37 7.37-7.43 Arterial blood carbon dioxide, total measurement (mole s/volume) 25.6 mmol/L 21.0-31.0 Body site RIGHT BRACHIAL NRG Assessment of wrist artery patency prior to arterial p uncture POSITIVE NRG Setting of ventilation mode NO NR G Measurement of body temperature 98.6 NRG Complete urinalysis with reflex to cultu re - 11/30/18 14:45 Urine color determination YELLOW NRG Urine clarity determination SLIGHTLY CLOUDY NRG Urine pH measurement by test strip 7 5-9 Specific gravity of urine by test strip 1.015 1.016-1.022 Urine protein assay by test strip, semi-quantitative 1+ NEGATIVE Urine glucose detection by automated test strip NE GATIVE NEGATIVE Erythrocytes detection in urine sediment by light micr oscopy NEGATIVE NEGATIVE Urine ketones detection by automated test strip 2+ NEGATIVE Urine nitrite detection by test strip NEGATIVE NEGATIVE Urine total bilirubin detection by test strip NEGA TIVE NEGATIVE Urine urobilinogen measurement by automated test strip (mass/volume) NORMAL NORMAL Urine leukocyte esterase detection by dipstick NEG ATIVE NEGATIVE Automated urine sediment erythrocyte cou nt by microscopy (number/high power field) NONE NRG Automated urine sediment leukocyte count by microscopy (number/high power field) RARE NRG Bacteria detection in urine sediment by light microsco py MODERATE NRG Squamous epithelial cells detection in u rine sediment by light microscopy 2-5 NRG Crystals detection in urine sediment by light microsco py NONE NRG Casts detection in urine sediment by light microscopy NONE NRG Mucus detection in urine sediment by light microscopy NEGATIVE NRG Complete urinalysis with reflex to culture YES NRG Bacterial urine culture - 11/30/18 14:45 Bacterial urine culture NG NRG Automated blood complete blood count (he mogram) panel - 12/01/18 04:15 Blood leukocytes automated count (number/volume) 9.3 10*3/uL 4.3-11.0 Blood erythrocytes automated count (number/volume) 3.12 10*6/uL 4.35-5.85 Venous blood hemoglobin measurement (mass/volume) 10.1 g/dL 11.5-16.0 Blood hematocrit (volume fraction) 30 % 35-52 Automated erythrocyte mean corpuscular volume 97 [ foz_us] 80-99 Automated erythrocyte mean corpuscular h emoglobin (mass per erythrocyte) 32 pg 25-34 Automated erythrocyte mean corpuscular h emoglobin concentration measurement (mass/volume) 33 g/dL 32-36 Automated erythrocyte distribution width ratio 12. 6 % 10.0- 14.5 Automated blood platelet count (count/volume) 179 10*3/uL 130-400 Automated blood platelet mean volume measurement 10.0 [foz_us] 7.4-10.4 Whole blood basic metabolic panel - 11/13 04:15 Serum or plasma sodium measurement (moles/volume) 138 mmol/L 135-145 Serum or plasma potassium measurement (moles/volume) 3.0 mmol/L 3.6-5.0 Serum or plasma chloride measurement (moles/volume) 104 mmol/L 98-107 Carbon dioxide 24 mmol/L 21-32 Serum or plasma anion gap determination (moles/volume) 10 mmol/L 5-14 Serum or plasma urea nitrogen measurement (mass/volume ) 17 mg/dL 7-18 Serum or plasma creatinine measurement (mass/volume) 0.78 mg/dL 0.60-1.30 Serum or plasma urea nitrogen/creatinine mass ratio 22 NRG Serum or plasma creatinine measurement w ith calculation of estimated glomerular filtration rate > NRG Serum or plasma glucose measurement (mass/volume) 132 mg/dL 70-105 Serum or plasma calcium measurement (mass/volume) 8.2 mg/dL 8.5-10.1 Serum or plasma phosphate measurement (m ass/volume) - 12/01/18 08:37 Serum or plasma phosphate measurement (mass/volume) 2.9 mg/dL 2.3-4.7 Magnesium - 12/01/18 08:37 Magnesium 1.8 mg/dL 1.8-2.4 Automated blood complete blood count (he mogram) panel - 12/02/18 04:30 Blood leukocytes automated count (number/volume) 9.5 10*3/uL 4.3-11.0 Blood erythrocytes automated count (number/volume) 3.29 10*6/uL 4.35-5.85 Venous blood hemoglobin measurement (mass/volume) 10.5 g/dL 11.5-16.0 Blood hematocrit (volume fraction) 32 % 35-52 Automated erythrocyte mean corpuscular volume 98 [ foz_us] 80-99 Automated erythrocyte mean corpuscular h emoglobin (mass per erythrocyte) 32 pg 25-34 Automated erythrocyte mean corpuscular h emoglobin concentration measurement (mass/volume) 33 g/dL 32-36 Automated erythrocyte distribution width ratio 12. 6 % 10.0- 14.5 Automated blood platelet count (count/volume) 178 10*3/uL 130-400 Automated blood platelet mean volume measurement 10.4 [foz_us] 7.4-10.4 Whole blood basic metabolic panel - 11/13 10/02 04:30 Serum or plasma sodium measurement (moles/volume) 135 mmol/L 135-145 Serum or plasma potassium measurement (moles/volume) 3.4 mmol/L 3.6-5.0 Serum or plasma chloride measurement (moles/volume) 104 mmol/L 98-107 Carbon dioxide 22 mmol/L 21-32 Serum or plasma anion gap determination (moles/volume) 9 mmol/L 5-14 Serum or plasma urea nitrogen measurement (mass/volume ) 13 mg/dL 7-18 Serum or plasma creatinine measurement (mass/volume) 0.71 mg/dL 0.60-1.30 Serum or plasma urea nitrogen/creatinine mass ratio 18 NRG Serum or plasma creatinine measurement w ith calculation of estimated glomerular filtration rate > NRG Serum or plasma glucose measurement (mass/volume) 118 mg/dL 70-105 Serum or plasma calcium measurement (mass/volume) 8.5 mg/dL 8.5-10.1 Complete blood count (CBC) with automate d white blood cell (WBC) differential - 12/03/18 05:50 Blood leukocytes automated count (number/volume) 7.3 10*3/uL 4.3-11.0 Blood erythrocytes automated count (number/volume) 3.05 10*6/uL 4.35-5.85 Venous blood hemoglobin measurement (mass/volume) 10.0 g/dL 11.5-16.0 Blood hematocrit (volume fraction) 30 % 35-52 Automated erythrocyte mean corpuscular volume 97 [ foz_us] 80-99 Automated erythrocyte mean corpuscular h emoglobin (mass per erythrocyte) 33 pg 25-34 Automated erythrocyte mean corpuscular h emoglobin concentration measurement (mass/volume) 34 g/dL 32-36 Automated erythrocyte distribution width ratio 12. 8 % 10.0- 14.5 Automated blood platelet count (count/volume) 189 10*3/uL 130-400 Automated blood platelet mean volume measurement 10.1 [foz_us] 7.4-10.4 Automated blood neutrophils/100 leukocytes 69 % 42-75 Automated blood lymphocytes/100 leukocytes 17 % 12-44 Blood monocytes/100 leukocytes 11 % 0-12 Automated blood eosinophils/100 leukocytes 2 % 0-10 Automated blood basophils/100 leukocytes 0 % 0-10 Blood neutrophils automated count (number/volume) 5.1 10*3 1.8-7.8 Blood lymphocytes automated count (number/volume) 1.2 10*3 1.0-4.0 Blood monocytes automated count (number/volume) 0. 8 10*3 0.0-1.0 Automated eosinophil count 0.2 10*3/uL 0 .0-0.3 Automated blood basophil count (count/volume) 0.0 10*3/uL 0.0-0.1 Comprehensive metabolic panel - 12/03/18 05:50 Serum or plasma sodium measurement (moles/volume) 137 mmol/L 135-145 Serum or plasma potassium measurement (moles/volume) 3.7 mmol/L 3.6-5.0 Serum or plasma chloride measurement (moles/volume) 108 mmol/L 98-107 Carbon dioxide 23 mmol/L 21-32 Serum or plasma anion gap determination (moles/volume) 6 mmol/L 5-14 Serum or plasma urea nitrogen measurement (mass/volume ) 12 mg/dL 7-18 Serum or plasma creatinine measurement (mass/volume) 0.75 mg/dL 0.60-1.30 Serum or plasma urea nitrogen/creatinine mass ratio 16 NRG Serum or plasma creatinine measurement w ith calculation of estimated glomerular filtration rate > NRG Serum or plasma glucose measurement (mass/volume) 108 mg/dL 70-105 Serum or plasma calcium measurement (mass/volume) 8.2 mg/dL 8.5-10.1 Serum or plasma total bilirubin measurement (mass/volu me) 0.3 mg/dL 0.1-1.0 Serum or plasma alkaline phosphatase lalit surement (enzymatic activity/volume) 53 U/L 40-136 Serum or plasma aspartate aminotransfera se measurement (enzymatic activity/volume) 19 U/L 5-34 Serum or plasma alanine aminotransferase measurement (enzymatic activity/volume) 13 U/L 0-55 Serum or plasma protein measurement (mass/volume) 5.1 g/dL 6.4-8.2 Serum or plasma albumin measurement (mass/volume) 2.7 g/dL 3.2-4.5 CALCIUM CORRECTED 9.2 mg/dL 8.5-10.1 Complete blood count (CBC) with automate d white blood cell (WBC) differential - 12/08/18 05:40 Blood leukocytes automated count (number/volume) 7.3 10*3/uL 4.3-11.0 Blood erythrocytes automated count (number/volume) 3.08 10*6/uL 4.35-5.85 Venous blood hemoglobin measurement (mass/volume) 9.8 g/dL 11.5-16.0 Blood hematocrit (volume fraction) 30 % 35-52 Automated erythrocyte mean corpuscular volume 98 [ foz_us] 80-99 Automated erythrocyte mean corpuscular h emoglobin (mass per erythrocyte) 32 pg 25-34 Automated erythrocyte mean corpuscular h emoglobin concentration measurement (mass/volume) 33 g/dL 32-36 Automated erythrocyte distribution width ratio 12. 6 % 10.0- 14.5 Automated blood platelet count (count/volume) 379 10*3/uL 130-400 Automated blood platelet mean volume measurement 8.8 [foz_us] 7.4-10.4 Automated blood neutrophils/100 leukocytes 50 % 42-75 Automated blood lymphocytes/100 leukocytes 25 % 12-44 Blood monocytes/100 leukocytes 12 % 0-12 Automated blood eosinophils/100 leukocytes 13 % 0-10 Automated blood basophils/100 leukocytes 1 % 0-10 Blood neutrophils automated count (number/volume) 3.6 10*3 1.8-7.8 Blood lymphocytes automated count (number/volume) 1.8 10*3 1.0-4.0 Blood monocytes automated count (number/volume) 0. 9 10*3 0.0-1.0 Automated eosinophil count 0.9 10*3/uL 0 .0-0.3 Automated blood basophil count (count/volume) 0.1 10*3/uL 0.0-0.1 Comprehensive metabolic panel - 12/08/18 05:40 Serum or plasma sodium measurement (moles/volume) 144 mmol/L 135-145 Serum or plasma potassium measurement (moles/volume) 3.8 mmol/L 3.6-5.0 Serum or plasma chloride measurement (moles/volume) 108 mmol/L 98-107 Carbon dioxide 26 mmol/L 21-32 Serum or plasma anion gap determination (moles/volume) 10 mmol/L 5-14 Serum or plasma urea nitrogen measurement (mass/volume ) 11 mg/dL 7-18 Serum or plasma creatinine measurement (mass/volume) 0.64 mg/dL 0.60-1.30 Serum or plasma urea nitrogen/creatinine mass ratio 17 NRG Serum or plasma creatinine measurement w ith calculation of estimated glomerular filtration rate > NRG Serum or plasma glucose measurement (mass/volume) 90 mg/dL 70-105 Serum or plasma calcium measurement (mass/volume) 8.7 mg/dL 8.5-10.1 Serum or plasma total bilirubin measurement (mass/volu me) 0.4 mg/dL 0.1-1.0 Serum or plasma alkaline phosphatase lalit surement (enzymatic activity/volume) 67 U/L 40-136 Serum or plasma aspartate aminotransfera se measurement (enzymatic activity/volume) 22 U/L 5-34 Serum or plasma alanine aminotransferase measurement (enzymatic activity/volume) 17 U/L 0-55 Serum or plasma protein measurement (mass/volume) 5.1 g/dL 6.4-8.2 Serum or plasma albumin measurement (mass/volume) 2.8 g/dL 3.2-4.5 CALCIUM CORRECTED 9.7 mg/dL 8.5-10.1 Capillary blood glucose measurement by g lucometer (mass/volume) - 12/09/18 11:30 Capillary blood glucose measurement by glucometer (mas s/volume) 85 mg/dL 70-110 Encounters ACCT No. Visit Date/Time Discharge Status Pt. Type Provider Facility Loc./Unit Complaint [id number] 11/18/2019 15:54:00 020 18:31:00 DIS Emergency KIMBERLY VILLASENOR MD [facility] ER FELL/BODY PAIN [id number] 01/14/2019 15:31:00 05/03/2 019 17:26:00 DIS Emergency HENRICARLTON VENEER SHEET REPAIRER [facility] ER FALL/CHIN LAC [id number] 12/31/2018 10:15:00 23:59:59 CLS Outpatient TRISTAN RICHARDSON APRN [facility] RT ALLERGIC RHINIT IS, UNSPECIFIED [id number] 12/23/2018 11:00:00 23:59:59 CLS Preadmit TRISTAN RICHARDSON APRN [facility] SLEEP SLEEP DISORDER [id number] 12/23/2018 10:58:00 23:59:59 CLS Preadmit TRISTAN RICHARDSON APRN [facility] RAD OTHER NONSPECIF IC ABN FINDING OF LUNG FIELD [id number] 12/03/2018 11:27:00 13:30:00 DIS Inpatient MICHELLE LARSON DO, V [facility] IRF LEFT HIP FRACTURE [id number] 12/01/2018 09:24:00 10:15:00 DIS Inpatient MICHELLE COLLADO DO [facility] 4TH HIP FX [id number] 02/25/2013 11:17:00 23:59:59 CLS Outpatient [id number] 11/01/2014 14:08:00 Document Registration [id number] 08/29/2011 10:42:00 Document Registration [id number] 08/23/2010 10:10:00 Document Registration [id number] 08/03/2010 11:09:00 Document Registration [id number] 08/24/2009 13:13:00 Document Registration
== END 2019-11-18 18:31 | disposition home or self-care (01) ==
LOC: EDUNIT# 15:52 → ER 15:54
DX: S29.011A Strain of muscle and tendon of front wall of thorax, initial encounter (principal); R40.2142 Coma scale, eyes open, spontaneous, at arrival to emergency department; R40.2252 Coma scale, best verbal response, oriented, at arrival to emergency department; R40.2362 Coma scale, best motor response, obeys commands, at arrival to emergency department; Z88.2 Allergy status to sulfonamides; Z88.8 Allergy status to other drugs, medicaments and biological substances; Z79.82 Long term (current) use of aspirin; Z79.52 Long term (current) use of systemic steroids; W19.XXXA Unspecified fall, initial encounter; W22.8XXA Striking against or struck by other objects, initial encounter
CPT/HCPCS: 70450; 71250; 72125; 93005; 94664